=== PATIENT | female | born 1965 | race Caucasian/White ===

== ENCOUNTER 2016-05-10 09:50 | Outpatient (CLI) | payer OTHER | END 2016-05-10 09:51 | disposition home or self-care (01) | DX: E66.9 Obesity, unspecified (principal); E11.65 Type 2 diabetes mellitus with hyperglycemia; I10 Essential (primary) hypertension ==

== ENCOUNTER 2016-07-21 07:25 | Outpatient (CLI) | payer OTHER ==
[2016-07-21 12:00] LABS: CALCIUM 9.7 mg/dL (8.5-10.3); CREATININE 0.6 mg/dL (0.4-1.0); POTASSIUM 3.6 mmol/L (3.5-5.0)
== END 2016-07-21 07:26 | disposition home or self-care (01) ==
LOC: LAB.F 07:25
PROVIDERS: ATTEND Internal Medicine
DX: I10 Essential (primary) hypertension (principal)
CPT/HCPCS: 36415; 80048

== ENCOUNTER 2016-11-29 08:36 | Outpatient (CLI) | payer OTHER ==
[2016-11-29 12:27] LABS: BUN - BLOOD UREA NITROGEN 22 mg/dL (6-20); CALCIUM 9.3 mg/dL (8.5-10.3); CARBON DIOXIDE - CO2 25 mmol/L (21-32); CHLORIDE 101 mmol/L (101-111); CHOL/HDL RATIO 7.6 (<4.4); CHOLESTEROL 280 mg/dL; CREATININE 0.6 mg/dL (0.4-1.0); GFR - MDRD 105 (>89); GLUCOSE 233 mg/dL (70-100); HDL CHOLESTEROL 37 mg/dL; LDL/HDL RATIO 4.6 (<4.4); POTASSIUM 3.7 mmol/L (3.5-5.0); SODIUM 136 mmol/L (135-145); TRIGLYCERIDES 360 mg/dL; VLDL CHOLESTEROL 72 mg/dL
[2016-11-29 12:48] LABS: HEMOGLOBIN A1C 1.44 g/dL
== END 2016-11-29 08:37 | disposition home or self-care (01) ==
LOC: LAB.F 08:36
PROVIDERS: ATTEND Internal Medicine
DX: I10 Essential (primary) hypertension (principal); E11.65 Type 2 diabetes mellitus with hyperglycemia; E78.2 Mixed hyperlipidemia
CPT/HCPCS: 36415; 80048; 80061; 83036

== ENCOUNTER 2017-02-28 13:10 | Outpatient (CLI) | payer OTHER ==
[2017-02-28 18:35] LABS: ALBUMIN 4.2 g/dL (3.2-5.5); ALBUMIN/GLOBULIN RATIO 1.4 (1.0-2.2); BILIRUBIN,TOTAL 0.4 mg/dL (0.2-1.0); CALCIUM 9.8 mg/dL (8.5-10.3); CREATININE 0.7 mg/dL (0.4-1.0); TOTAL PROTEIN 7.2 g/dL (6.7-8.2)
[2017-02-28 18:54] LABS: HB2 TOTAL 14.3 g/dL; HEMOGLOBIN A1C 1.03 g/dL; HEMOGLOBIN A1C % 8.7 % (4.6-6.2)
== END 2017-02-28 13:11 | disposition home or self-care (01) ==
LOC: LAB.F 13:10
PROVIDERS: ATTEND Physician Assistant Medical
DX: E11.65 Type 2 diabetes mellitus with hyperglycemia (principal)
CPT/HCPCS: 36415; 80053; 83036

== ENCOUNTER 2017-04-04 08:00 | Outpatient (CLI) | payer OTHER ==
[2017-04-08 11:16] LABS: CREATININE, URINE 1.72 g/24 h (0.63-2.50)
== END 2017-04-04 23:59 | disposition home or self-care (01) ==
LOC: LAB.R 08:00
PROVIDERS: ATTEND Physician Assistant Medical
DX: I10 Essential (primary) hypertension (principal); R00.0 Tachycardia, unspecified
CPT/HCPCS: 82530; 82570

== ENCOUNTER 2017-04-04 12:52 | Outpatient (CLI) | payer OTHER ==
[2017-04-04 18:53] LABS: ALBUMIN 3.5 g/dL (3.2-5.5); ALBUMIN/GLOBULIN RATIO 1.2 (1.0-2.2); BILIRUBIN,TOTAL 0.5 mg/dL (0.2-1.0); CALCIUM 9.1 mg/dL (8.5-10.3); CREATININE 0.7 mg/dL (0.4-1.0); TOTAL PROTEIN 6.5 g/dL (6.7-8.2)
== END 2017-04-04 12:53 | disposition home or self-care (01) ==
LOC: LAB.F 12:52
PROVIDERS: ATTEND Physician Assistant Medical
DX: I10 Essential (primary) hypertension (principal)
CPT/HCPCS: 36415; 80053

== ENCOUNTER 2019-04-09 16:36 | Outpatient (CLI) | payer BC ==
[2019-04-09 17:13] LABS: HB2 TOTAL 12.1 g/dL; HEMOGLOBIN A1C 1.07 g/dL; HEMOGLOBIN A1C % 10.2 % (4.6-6.2)
[2019-04-09 17:23] LABS: BUN - BLOOD UREA NITROGEN 37 mg/dL (6-20); CALCIUM 9.3 mg/dL (8.5-10.3); CARBON DIOXIDE - CO2 26 mmol/L (21-32); CHLORIDE 99 mmol/L (101-111); CHOL/HDL RATIO 4.1 (<4.4); CHOLESTEROL 189 mg/dL; CREATININE 1.9 mg/dL (0.4-1.0); GFR - MDRD 27 (>89); GLUCOSE 465 mg/dL (70-100); HDL CHOLESTEROL 46 mg/dL; SODIUM 135 mmol/L (135-145)
[2019-04-09 17:36] LABS: CREATININE,URINE 49.7 mg/dL; MICROALBUM/CREATININE RATIO,UR 12732.4 ug/mg (<30.0); MICROALBUMIN,URINE 632.8 mg/dL (0-300.0)
[2019-04-09 17:43] LABS: LDL CHOLESTEROL,DIRECT 84 mg/dL; LDLD/HDL RATIO 1.8 (<4.4)
== END 2019-04-09 16:37 | disposition home or self-care (01) ==
LOC: LAB 16:36
PROVIDERS: ATTEND Internal Medicine
DX: F41.8 Other specified anxiety disorders (principal); M19.029 Primary osteoarthritis, unspecified elbow; F32.9 Major depressive disorder, single episode, unspecified; E11.9 Type 2 diabetes mellitus without complications; E78.5 Hyperlipidemia, unspecified; I10 Essential (primary) hypertension; R60.0 Localized edema; R06.02 Shortness of breath; R53.83 Other fatigue
CPT/HCPCS: 36415; 80048; 80061; 82043; 82570; 83036; 83721

== ENCOUNTER 2019-04-24 11:11 | Outpatient (CLI) | payer BC ==
[2019-04-24 11:29] LABS: CALCIUM 9.4 mg/dL (8.5-10.3); CREATININE 1.8 mg/dL (0.4-1.0)
== END 2019-04-24 11:12 | disposition home or self-care (01) ==
LOC: LAB 11:11
PROVIDERS: ATTEND Internal Medicine
DX: I10 Essential (primary) hypertension (principal); F41.8 Other specified anxiety disorders; E11.9 Type 2 diabetes mellitus without complications; E78.5 Hyperlipidemia, unspecified; R06.02 Shortness of breath
CPT/HCPCS: 36415; 80048

== ENCOUNTER 2019-05-07 07:26 | Outpatient (CLI) | payer BC ==
[2019-05-07 08:00] LABS: CALCIUM 9.3 mg/dL (8.5-10.3); CREATININE 1.9 mg/dL (0.4-1.0)
== END 2019-05-07 07:27 | disposition home or self-care (01) ==
LOC: LAB 07:26
PROVIDERS: ATTEND Internal Medicine
DX: F41.8 Other specified anxiety disorders (principal); E11.9 Type 2 diabetes mellitus without complications; E78.5 Hyperlipidemia, unspecified; I10 Essential (primary) hypertension; R06.02 Shortness of breath
CPT/HCPCS: 36415; 80048

== ENCOUNTER 2019-05-25 09:16 | Outpatient (CLI) | payer BC ==
[2019-05-25 09:35] LABS: BASOPHILS # (AUTO) 0.1 10^3/uL (0.0-0.1); BASOPHILS % (AUTO) 0.9 %; EOSINOPHILS # (AUTO) 0.2 10^3/uL (0.0-0.7); EOSINOPHILS % (AUTO) 4.3 %; HGB - HEMOGLOBIN 11.4 g/dL (12.0-16.0); LYMPHOCYTES # (AUTO) 2.2 10^3/uL (1.5-3.5); LYMPHOCYTES % (AUTO) 40.7 %; MEAN CORPUSCULAR HEMOGLOBIN 29.1 pg (27.0-31.0); MEAN CORPUSCULAR VOLUME 85.5 fL (81.0-99.0); MEAN PLATELET VOLUME 9.8 fL (7.9-10.8); MONOCYTES # (AUTO) 0.5 10^3/uL (0.0-1.0); MONOCYTES % (AUTO) 8.8 %; NEUTROPHILS # (AUTO) 2.4 10^3/uL (1.5-6.6); NEUTROPHILS % (AUTO) 44.5 %; PLT - PLATELET COUNT 204 10^3/uL (130-450); RED BLOOD COUNT 3.92 10^6/uL (4.20-5.40); RED CELL DISTRIBUTION WIDTH 12.2 % (12.0-15.0); WHITE BLOOD COUNT 5.3 x10^3/uL (4.8-10.8)
[2019-05-25 09:49] LABS: ALBUMIN 3.6 g/dL (3.2-5.5); CALCIUM 9.3 mg/dL (8.5-10.3); CREATININE 2.1 mg/dL (0.4-1.0)
[2019-05-25 10:05] LABS: HB2 TOTAL 12.2 g/dL; HEMOGLOBIN A1C 1.11 g/dL; HEMOGLOBIN A1C % 10.5 % (4.6-6.2)
[2019-05-25 10:18] LABS: CREATININE,URINE 78.4 mg/dL; MICROALBUM/CREATININE RATIO,UR 4358.4 ug/mg (<30.0); MICROALBUMIN,URINE 341.7 mg/dL (0-300.0)
== END 2019-05-25 09:17 | disposition home or self-care (01) ==
LOC: LAB 09:16
PROVIDERS: ATTEND Internal Medicine
DX: F41.8 Other specified anxiety disorders (principal); E11.22 Type 2 diabetes mellitus with diabetic chronic kidney disease; N18.9 Chronic kidney disease, unspecified; E78.5 Hyperlipidemia, unspecified; I12.9 Hypertensive chronic kidney disease with stage 1 through stage 4 chronic kidney disease, or unspecified chronic kidney disease; R06.02 Shortness of breath
CPT/HCPCS: 36415; 80069; 82043; 82570; 83036; 84443; 85025

== ENCOUNTER 2019-05-29 19:35 | Emergency (ER) | payer BC ==
[2019-05-29 19:47] VITALS: BP 150/100
--- NOTE | 2019-05-29 19:58 | ED Physician Documentation ---
PD HPI UPPER EXT INJURY - Stated complaint Stated Complaint: FALL - RT ARM INJ - Chief complaint Chief Complaint: Trauma Ext - History obtained from History obtained from: Patient - History of Present Illness Location: Left, Wrist Type of injury: Fall Where injury occurred: Home Timing - onset: How many hours ago (1) Timing - details: Abrupt onset Pain level now: 6 Improved by: Rest, Ice, Immobilization Worsened by: Moving, Palpating Associated symptoms: Swelling. No: Weakness, Numbness, Tingling, Discolored Contributing factors: No: Anticoagulated, Prior ortho surgery, Prosthetic joint, Work related Similar symptoms before: Has not had sx before Recently seen: Not recently seen - Additonal information Additional information: was walking along the top of a brick wall in her yard this evening when a brick gave way, causing her to fall to the ground (approximately 2-3 feet). landed on outstretched left upper extremity, sudden onset left wrist pain with deformity. 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 HEENT: Tonsil/Adenoidectomy - Present Medications Home Medications: Ambulatory Orders Medication Instructions Recorded Confirmed Aspirin [Aspirin EC] 81 mg PO DAILY 04/20/19 04/20/19 Cetirizine [ZyrTEC] 10 mg PO DAILY 04/20/19 04/20/19 Escitalopram [Lexapro] 20 mg PO DAILY 04/20/19 04/20/19 Famotidine 20 mg PO DAILY 04/20/19 04/20/19 Furosemide 40 mg PO BID 04/20/19 04/20/19 Glucosamine HCl 3,000 mg PO DAILY 04/20/19 04/20/19 Insulin Lispro [Humalog Kwikpen 0 - 20 unit SUBQ TIDWM 04/20/19 04/20/19 U-100] Insulin NPH Human Isophane 35 units SUBQ QPM 04/20/19 04/20/19 [Humulin N Kwikpen] Insulin NPH Human Isophane 50 unit SUBQ QDBREAKFAST 04/20/19 04/20/19 [Humulin N Kwikpen] Losartan Potassium 100 mg PO DAILY 04/20/19 04/20/19 Metformin HCl 1,000 mg PO BID 04/20/19 04/20/19 Metoprolol Succinate 100 mg PO QPM 04/20/19 04/20/19 Potassium Chloride [K-Dur] 40 meq PO ONCE 04/20/19 04/20/19 Rosuvastatin Calcium 40 mg PO DAILY 04/20/19 04/20/19 Spironolactone 25 mg PO DAILY 04/20/19 04/20/19 cloNIDine HCL [Clonidine HCl] 0.1 mg PO QPM 04/20/19 04/20/19 HYDROcod/ACETAM 5/325 [[place] 5/325] 1 - 2 ea PO Q6H PRN #20 tablet 05/29/19 - Allergies Allergies/Adverse Reactions: Allergies Allergy/AdvReac Type Severity Reaction Status Date / Time amlodipine Allergy Itching Verified 05/29/19 19:43 hydralazine Allergy Rash Verified 05/29/19 19:43 morphine Allergy Rash Verified 05/29/19 19:43 prochlorperazine Allergy Unknown Verified 05/29/19 19:43 [From Compazine] liraglutide [From Victoza] AdvReac Emesis Verified 05/29/19 19:43 - Social History Smoking Status: Former smoker PD ED PE NORMAL - Vitals Vital signs reviewed: Yes - General General: Alert and oriented X 3, Well developed/nourished, Other (appears uncomfortable at times due to left wrist pain) - Neuro Neuro: No sensory deficit PD ED PE EXPANDED - Extremities Extremities: Deformity, Tenderness, Limited ROM, Swelling, Left wrist Results - Vitals Vitals: Oxygen O2 Source Room air - Rads (name of study) left wrist xrays Radiology: Prelim report reviewed, See rad report Procedures - Splint (location) Upper extremity left Splint applied by: Tech Type of splint: Sugar tong Other: Patient tolerated well, No complications, Neurovascular intact, Good alignment, Sling provided PD MEDICAL DECISION MAKING - ED course Complexity details: reviewed results, re-evaluated patient, considered differential, d/w patient Departure - Departure Disposition: 01 Home, Self Care Clinical Impression: Wrist fracture, left Qualifiers: Encounter type: initial encounter Fracture type: closed Qualified Code(s): S62.102A - Fracture of unspecified carpal bone, left wrist, initial encounter for closed fracture Condition: Good Instructions: ED Sling, ED Splint Care Fiberglass, ED Fx Wrist General Follow-Up: Golden Cantrell MD [Provider Admit Priv/Credential] - (Call in the morning to arrange for next available appointment) Prescriptions: HYDROcod/ACETAM 5/325 [[place] 5/325] 1 - 2 ea PO Q6H PRN #20 tablet PRN Reason: Pain Discharge Date/Time: 05/29/19 21:59
[2019-05-29] MEDS ORDERED: HYDROmorphone 1 MG/ML CARPUJECT IM STA (20:15)
--- NOTE | 2019-05-29 20:38 | XRAY Report ---
Reason: fall, injury, deformity Procedure Date: 05/29/2019 Accession Number: [id number] / [id number] Procedure: XR - Wrist 4 View RT CPT Code: Final Report FULL RESULT: EXAM: RIGHT WRIST RADIOGRAPHY EXAM DATE: 05/29/2019 08:33 PM. CLINICAL HISTORY: Fall, injury, deformity. Right wrist pain. COMPARISON: None. TECHNIQUE: 4 views. FINDINGS: Bones: Acute transverse fracture at the distal right radial metaphysis with mild 4 mm dorsal displacement and mild 20 degrees dorsal angulation. No acute fracture of the distal ulna is identified, although there is an old ulnar styloid fracture or unfused apophysis. Carpal bones and metacarpals appear intact. Joints: Normal. No subluxations. Soft Tissues: Mild soft tissue swelling diffusely about the wrist. IMPRESSION: Acute transverse fracture of the right distal radial metaphysis with mild dorsal displacement and angulation. RADIA
[2019-05-29] MEDS ORDERED: ONDANSETRON ODT 4 MG TABLET TL STA (21:10)
[2019-05-29] MEDS ORDERED: HYDROcod/ACETAM 5/325 MG TABLET PO STA (21:10)
[2019-05-29] MEDS ORDERED: HYDROcod/ACET 5/325 Prepack 4 PO STA (21:11)
== END 2019-05-29 21:59 | disposition home or self-care (01) ==
LOC: ED 19:35
DX: S52.591A Other fractures of lower end of right radius, initial encounter for closed fracture (principal); W17.89XA Other fall from one level to another, initial encounter; Y93.01 Activity, walking, marching and hiking; Y92.007 Garden or yard of unspecified non-institutional (private) residence as the place of occurrence of the external cause; I10 Essential (primary) hypertension; E11.9 Type 2 diabetes mellitus without complications; Z79.4 Long term (current) use of insulin; Z87.891 Personal history of nicotine dependence
CPT/HCPCS: 29105; 73110; 96372; 99283; A9270; J1170; Q0162

== ENCOUNTER 2019-05-31 11:47 | Outpatient (CLI) | payer BC ==
--- NOTE | 2019-06-01 09:23 | Ultrasound Report ---
Reason: RENOVASCULAR HYPERTENSION Procedure Date: 05/31/2019 Accession Number: [id number] / [id number] Procedure: US - Arterial Visceral Complete CPT Code: Final Report FULL RESULT: EXAM: RENAL ARTERY DOPPLER ULTRASOUND EXAM DATE: 05/31/2019 01:08 PM. CLINICAL HISTORY: Renovascular hypertension. COMPARISON: None. TECHNIQUE: Real-time sonographic vascular imaging was performed by the boat worker through the renal arterial system with a linear transducer utilizing color-flow, Doppler flow, and spectral analysis. Multiple human resources representative static images were saved for review. FINDINGS: Right Kidney: 11.9 x 6.8 x 6.4 cm. Echotexture: Not described. Right Segmental Artery: Upper pole: PSV 30.3 cm/sec, RI 0.79. Mid pole: PSV 40.6 cm/sec, RI 0.71. Lower pole: PSV 36.4 cm/sec, RI 0.71. Right Renal Artery: Origin: Not seen. Proximal: Not seen. Mid: Not seen. Distal: PSV 136 cm/sec, RA/AO 1.50. Proximal Aorta PSV: 90.5 cm/sec. RRV Patent: Yes. Left Kidney: 9.7 x 5.1 x 4.7 cm. Echotexture: Irregular contour. Left Segmental Artery: Upper pole: PSV 40 cm/sec, RI 0.69. Mid pole: PSV 31.5 cm/sec, RI 0.66. Lower pole: PSV 41.5 cm/sec, RI 0.76. Left Renal Artery: Origin: Not seen. Proximal: Not seen. Mid: Not seen. Distal: PSV 134 cm/sec, RA/AO 1.48. LRV Patent: Yes. Origin through mid renal arteries are obscured bilaterally due to patient body habitus. Kidneys appear mildly echogenic bilaterally. There is a simple-appearing 18 mm left midpole cyst. No imaging follow-up is recommended per consensus recommendations based on imaging criteria. IMPRESSION: 1. Renal arteries are largely obscured bilaterally due to patient body habitus, nondiagnostic for renal artery stenosis. Consider CTA/MRA for further evaluation. 2. Mildly echogenic kidneys with elevated renal resistive indices suggest medical renal disease. CRITERIA FOR CLASSIFICATION OF RENAL ARTERY (RA) DISEASE BY DUPLEX SCANNING: RA Diameter Reduction/ RA PSV/ RAR: Normal, < 180 cm/sec, < 3.5 < 60%, >= 180 cm/sec, < 3.5 >= 60%, >= 180 cm/sec, >= 3.5 Total Occlusion: Undetectable; Not applicable RADIA
== END 2019-05-31 11:48 | disposition home or self-care (01) ==
LOC: DI 11:47
PROVIDERS: ATTEND Internal Medicine
DX: I15.0 Renovascular hypertension (principal)
CPT/HCPCS: 93975

== ENCOUNTER 2019-06-05 08:43 | Outpatient (CLI) | payer BC ==
--- NOTE | 2019-06-06 02:43 | XRAY Report ---
Reason: OTHER EXTRAARTICULAR FRACTURE OF LOWER END OF RIGH Procedure Date: 06/05/2019 Accession Number: [id number] / [id number] Procedure: XR - Wrist 2 View RT CPT Code: Final Report FULL RESULT: EXAM: RIGHT WRIST RADIOGRAPHY EXAM DATE: 06/05/2019 08:46 AM CLINICAL HISTORY: Previous fracture, follow-up. Other extraarticular fracture of lower end of right . Fall. COMPARISON: WRIST 4 VIEW RT 05/29/2019 8:10 PM. TECHNIQUE: 2 views. FINDINGS IMPRESSION: 1. Presence of cast obscures bony detail. 2. Slight dorsal angulated mildly displaced distal radial fracture is again seen without significant change in alignment compared to the prior study. There is no significant bony callus formation or bridging periosteal reaction demonstrated at this time. 3. Remote ulnar styloid fracture is again noted. 4. Soft tissue swelling persists. RADIA
== END 2019-06-05 08:44 | disposition home or self-care (01) ==
LOC: DI 08:43
PROVIDERS: ATTEND Orthopaedic Surgery Sports Medicine
DX: S52.501D Unspecified fracture of the lower end of right radius, subsequent encounter for closed fracture with routine healing (principal); S52.611D Displaced fracture of right ulna styloid process, subsequent encounter for closed fracture with routine healing

== ENCOUNTER 2019-06-07 19:55 | Outpatient (CLI) | payer BC | END 2019-06-07 19:56 | disposition critical access hospital (66) | LOC: EMS 19:55 | PROVIDERS: ATTEND Surgery | DX: R53.1 Weakness (principal); R55 Syncope and collapse; R11.0 Nausea; R73.09 Other abnormal glucose | CPT/HCPCS: A0425; A0427 ==

== ENCOUNTER 2019-06-07 20:21 | Inpatient (IN) | payer BC ==
[2019-06-07] MEDS ORDERED: cloNIDine 0.1 MG TABLET PO SCH (21:00)
[2019-06-07 21:13] LABS: BASOPHILS # (AUTO) 0.1 10^3/uL (0.0-0.1); BASOPHILS % (AUTO) 0.6 %; EOSINOPHILS # (AUTO) 0.2 10^3/uL (0.0-0.7); EOSINOPHILS % (AUTO) 3.1 %; HGB - HEMOGLOBIN 12.2 g/dL (12.0-16.0); LYMPHOCYTES # (AUTO) 2.2 10^3/uL (1.5-3.5); LYMPHOCYTES % (AUTO) 27.9 %; MEAN CORPUSCULAR HEMOGLOBIN 29.8 pg (27.0-31.0); MEAN CORPUSCULAR VOLUME 85.3 fL (81.0-99.0); MEAN PLATELET VOLUME 9.5 fL (7.9-10.8); MONOCYTES # (AUTO) 0.7 10^3/uL (0.0-1.0); MONOCYTES % (AUTO) 8.8 %; NEUTROPHILS # (AUTO) 4.6 10^3/uL (1.5-6.6); NEUTROPHILS % (AUTO) 59.2 %; PLT - PLATELET COUNT 301 10^3/uL (130-450); RED BLOOD COUNT 4.09 10^6/uL (4.20-5.40); RED CELL DISTRIBUTION WIDTH 12.2 % (12.0-15.0); WHITE BLOOD COUNT 7.8 x10^3/uL (4.8-10.8)
[2019-06-07 21:17] LABS: VBG BASE EXCESS -7.5 mmol/L (-2 - +2); VBG PCO2 43.1 mmHg (41-51); VBG PH 7.267 (7.31-7.41); VBG PO2 41.3 mmHg (25-47); VBG TOTAL CO2 20.5 mmol/L (24-29)
[2019-06-07 21:30] LABS: ALBUMIN 3.7 g/dL (3.2-5.5); ALBUMIN/GLOBULIN RATIO 1.1 (1.0-2.2); BILIRUBIN,TOTAL 0.5 mg/dL (0.2-1.0); CALCIUM 9.3 mg/dL (8.5-10.3); CREATININE 3.2 mg/dL (0.4-1.0); TOTAL PROTEIN 7.2 g/dL (6.7-8.2)
--- NOTE | 2019-06-07 21:33 | ED Physician Documentation ---
History of Present Illness - Stated complaint Stated Complaint: SYNCOPE, WEAKNESS - Chief complaint Chief Complaint: Neuro - History obtained from History obtained from: Patient - History of Present Illness Timing: Today Pain level now: 4 (RUE) Improved by: rest Worsened by: standing, ambulating Associated symptoms: lightheadedness, generalized weakness - Additonal information Additional information: T+R from this ED 05/29/2019 for right wrist fracture. BIBA tonight for near-syncope. She went to stand from seated position tonight at home, approximately 30-40 minutes HEAD OF MUSIC, and had generalized weakness and felt that her legs were "going to give out" (per patient). She sat back down but had 2 more episodes upon trying to stand back up and thus called 911. c/o nausea, but this has been presents since she was here 10 days ago. Review of Systems Constitutional: reports: Fatigue. denies: Fever, Chills, Myalgias, Sweats Eyes: reports: Reviewed and negative Ears: reports: Reviewed and negative Nose: reports: Reviewed and negative Cardiac: reports: Reviewed and negative Respiratory: reports: Reviewed and negative GI: reports: Reviewed and negative : denies: Dysuria, Frequency Skin: reports: Reviewed and negative Musculoskeletal: reports: Extremity pain (RUE (recent wrist fracture)). denies: Neck pain, Back pain Neurologic: reports: Generalized weakness, Near syncope. 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 HEENT: Tonsil/Adenoidectomy - Present Medications Home Medications: Ambulatory Orders Medication Instructions Recorded Confirmed Aspirin [Aspirin EC] 81 mg PO DAILY 04/20/19 06/08/19 Cetirizine [ZyrTEC] 10 mg PO DAILY 04/20/19 06/08/19 Escitalopram [Lexapro] 20 mg PO DAILY 04/20/19 06/08/19 Famotidine 20 mg PO DAILY 04/20/19 06/08/19 Furosemide 40 mg PO BID 04/20/19 06/08/19 Glucosamine HCl 3,000 mg PO DAILY 04/20/19 06/08/19 Insulin Lispro [Humalog Kwikpen 0 - 20 unit SUBQ TIDWM 04/20/19 06/08/19 U-100] Insulin NPH Human Isophane 35 units SUBQ QPM 04/20/19 06/08/19 [Humulin N Kwikpen] Insulin NPH Human Isophane 50 unit SUBQ QDBREAKFAST 04/20/19 06/08/19 [Humulin N Kwikpen] Losartan Potassium 100 mg PO DAILY 04/20/19 06/08/19 Metformin HCl 1,000 mg PO BID 04/20/19 06/08/19 Metoprolol Succinate 100 mg PO QPM 04/20/19 06/08/19 Potassium Chloride [K-Dur] 40 meq PO ONCE 04/20/19 06/08/19 Rosuvastatin Calcium 40 mg PO DAILY 04/20/19 06/08/19 Spironolactone 25 mg PO DAILY 04/20/19 06/08/19 cloNIDine HCL [Clonidine HCl] 0.1 mg PO QPM 04/20/19 06/08/19 HYDROcod/ACETAM 5/325 [[place] 5/325] 1 - 2 ea PO Q6H PRN #20 tablet 05/29/19 06/08/19 - Allergies Allergies/Adverse Reactions: Allergies Allergy/AdvReac Type Severity Reaction Status Date / Time amlodipine Allergy Itching Verified 05/29/19 19:43 hydralazine Allergy Rash Verified 05/29/19 19:43 morphine Allergy Rash Verified 05/29/19 19:43 prochlorperazine Allergy Unknown Verified 05/29/19 19:43 [From Compazine] liraglutide [From Victoza] AdvReac Emesis Verified 05/29/19 19:43 - Social History Does the pt smoke?: No Smoking Status: Never smoker Does the pt drink ETOH?: No Does the pt have substance abuse?: No - Immunizations Immunizations are current?: Yes - POLST Patient has POLST: No PD ED PE NORMAL - Vitals Vital signs reviewed: Yes - General General: Alert and oriented X 3, No acute distress, Well developed/nourished - HEENT HEENT: Moist mucous membranes - Neck Neck: Supple, no meningeal sign - Cardiac Cardiac: RRR, No murmur - Respiratory Respiratory: No respiratory distress, Clear bilaterally - Abdomen Abdomen: Soft, Non tender - Derm Derm: Normal color, Warm and dry - Extremities Extremities: No edema, Other (RUE splint/JULIEN in place. fingertips of RUE are warm and normal color with brisk capillary refill and intact LTS) - Neuro Neuro: Alert and oriented X 3, marine architect 2-12 intact, No motor deficit, No sensory deficit, Normal speech Eye Opening: Spontaneous Motor: Obeys Commands Verbal: Oriented GCS Score: 15 Results - Vitals Vitals: Vital Signs - 24 hr 06/07/19 06/07/19 20:28 21:53 Temperature 36.9 C Heart Rate 79 79 Respiratory 18 14 Rate Blood Pressure 180/85 H 151/78 H O2 Saturation 94 96 Oxygen O2 Source Room air - EKG (time done) No standard instances Rate: Rate (enter#) (76) Rhythm: NSR [place]: Normal Intervals: Other (NSIVCD) QRS: Normal Ischemia: Other (isolated QIII, inverted p III) - Labs Labs: Laboratory Tests 06/07/19 06/07/19 06/07/19 21:06 21:06 21:06 WBC 7.8 RBC 4.09 L Hgb 12.2 Hct 34.9 L MCV 85.3 MCH 29.8 MCHC 35.0 RDW 12.2 Plt Count 301 MPV 9.5 Neut # (Auto) 4.6 Lymph # (Auto) 2.2 [place] # (Auto) 0.7 Eos # (Auto) 0.2 Baso # (Auto) 0.1 Absolute Nucleated RBC 0.00 Nucleated RBC % 0.0 VBG pH VBG pCO2 VBG pO2 VBG HCO3 VBG Total CO2 VBG O2 Saturation VBG Base Excess Sodium 125 L Potassium 7.7 H* Chloride 98 L Carbon Dioxide 20 L Anion Gap 7.0 BUN 77 H Creatinine 3.2 H Estimated GFR (MDRD) 15 L Glucose 428 H Lactic Acid 1.4 Calcium 9.3 Total Bilirubin 0.5 AST 21 ALT 22 Alkaline Phosphatase 85 Total Protein 7.2 Albumin 3.7 Globulin 3.5 Albumin/Globulin Ratio 1.1 Lipase 139 H 06/07/19 06/07/19 21:06 21:53 WBC RBC Hgb Hct MCV MCH MCHC RDW Plt Count MPV Neut # (Auto) Lymph # (Auto) [place] # (Auto) Eos # (Auto) Baso # (Auto) Absolute Nucleated RBC Nucleated RBC % VBG pH 7.267 L VBG pCO2 43.1 VBG pO2 41.3 VBG HCO3 19.2 L VBG Total CO2 20.5 L VBG O2 Saturation 76.2 VBG Base Excess -7.5 L Sodium Potassium 6.9 H* Chloride Carbon Dioxide Anion Gap BUN Creatinine Estimated GFR (MDRD) Glucose Lactic Acid Calcium Total Bilirubin AST ALT Alkaline Phosphatase Total Protein Albumin Globulin Albumin/Globulin Ratio Lipase PD MEDICAL DECISION MAKING - ED course ED course: patient found to have hyperkalemia with bun/creatinine abnormalities that are significantly higher than her baseline. Of note, she says she recently stopped her lasix (1-2 weeks ago) because she takes it for leg swelling and noted this had improved. However, she still take spirinolactone and potassium. I discussed the case with Dr. rL ([facility] hospitalist); he requests that I discuss the case with nephrology before considering admit to [facility]. I discussed the case with Dr. Zayas (on-call nephrology at [facility] (patient does not have a gravity prospecting operator)). She recommends admission and says patient can be admitted at this time to [facility] and can consider transfer if patient does not improve with the following measures: IV fluids, discontinue diuretics and discontinue statin, and administer insulin with D50 (I did not order the D50 due to her hyperglycemia), kayexelate, and albuterol nebs (she recommends up to 10mg on initial dose). She also recommends kidney ultrasound in AM. D/W Dr. Lr, accepts admit to [facility] Departure - Departure Disposition: ED Place in Observation Clinical Impression: Hyperkalemia, Renal insufficiency Condition: Stable Discharge Date/Time: 06/07/19 23:48
[2019-06-07] MEDS ORDERED: SODIUM CHLORIDE 0.9% 500 ML IV STA (21:53)
[2019-06-07] MEDS ORDERED: ONDANSETRON 4 MG/2 ML VIAL IVP STA (22:18)
[2019-06-07] MEDS ORDERED: ONDANSETRON 4 MG/2 ML VIAL ONE (22:19)
[2019-06-07] MEDS ORDERED: SODIUM POLYSTYRENE SULFONATE 15 GM/60 ML BOTTLE PO STA (22:49)
[2019-06-07] MEDS ORDERED: INSULIN REGULAR HUMAN 100 UNIT/1 ML 10 ML MDV SUBQ STA (22:49)
[2019-06-07] MEDS ORDERED: DEXTROSE 50% ABBOJECT 25 GM/50 ML SYRINGE IVP STA (22:49)
[2019-06-07] MEDS ORDERED: ALBUTEROL NEB 2.5 MG/3 ML INH STA ×3 (22:49→22:55)
[2019-06-07] MEDS ORDERED: ACETAMINOPHEN 325 MG TABLET PO PRN (23:01)
[2019-06-07] MEDS ORDERED: SODIUM CHLORIDE FLUSH 0.9% 10 ML SYRINGE IVP PRN (23:01)
--- NOTE | 2019-06-07 23:15 | HISTORY & PHYSICAL EXAMINATION ---
Chief Complaint - Chief Complaint Chief Complaint: hyperkalmemia History of Present Illness - Admitted From Admitted From:: [facility] - History Obtained From Records Reviewed: yes History obtained from: patient - History of Present Illness HPI Comment/Other: Patient is a 53-year-old female who presented to the ED today via EMS. She was at the dinner table with her family and suddenly felt like she had to stand. She attempted to stand but her legs would not support her. She was helped into a chair by her and a friend. Later she attempted to stand again and was unable to so her called EMS after they were advised to do so by the nurse line. In the ED work-up included BMP which showed a potassium level of 7.7 and a creatinine of 3.2. Nephrology at [facility] was consulted by the ED physician. It was advised to continue managing with IV hydration, albuterol, Kayexalate and insulin. As a result she was presented for admission. At bedside she denies chest pain, dyspnea, abdominal pain, fever or chills. She has been nauseous but no vomiting. She denied lightheadedness. She was seen in the emergency department on 29 May 2019 after sustaining a mechanical fall. She has a right wrist fracture as a result. However right arm is currently in a brace. She stopped taking Lasix 1 to 2 weeks ago. However she has continued to take spironolactone and supplemental potassium chloride tablets daily during this time. She is also on losartan, metformin, rosuvastatin. 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 She also had hypertension. Father at 72 from complications of diabetes mellitus. Brother has hyperlipidemia and some unspecified cardiac problems. She has 2 other siblings who are healthy. She has a child with Asperger's. Social History Notes: She lives at home with her family. She does not smoke or use illicit substances. She rarely drinks alcohol. - POLST Patient has POLST: No POLST Status: Full Code Meds/Allgy - Home Medications Home Medications: Ambulatory Orders Medication Instructions Recorded Confirmed Aspirin [Aspirin EC] 81 mg PO DAILY 04/20/19 04/20/19 Cetirizine [ZyrTEC] 10 mg PO DAILY 04/20/19 04/20/19 Escitalopram [Lexapro] 20 mg PO DAILY 04/20/19 04/20/19 Famotidine 20 mg PO DAILY 04/20/19 04/20/19 Furosemide 40 mg PO BID 04/20/19 04/20/19 Glucosamine HCl 3,000 mg PO DAILY 04/20/19 04/20/19 Insulin Lispro [Humalog Kwikpen 0 - 20 unit SUBQ TIDWM 04/20/19 04/20/19 U-100] Insulin NPH Human Isophane 35 units SUBQ QPM 04/20/19 04/20/19 [Humulin N Kwikpen] Insulin NPH Human Isophane 50 unit SUBQ QDBREAKFAST 04/20/19 04/20/19 [Humulin N Kwikpen] Losartan Potassium 100 mg PO DAILY 04/20/19 04/20/19 Metformin HCl 1,000 mg PO BID 04/20/19 04/20/19 Metoprolol Succinate 100 mg PO QPM 04/20/19 04/20/19 Potassium Chloride [K-Dur] 40 meq PO ONCE 04/20/19 04/20/19 Rosuvastatin Calcium 40 mg PO DAILY 04/20/19 04/20/19 Spironolactone 25 mg PO DAILY 04/20/19 04/20/19 cloNIDine HCL [Clonidine HCl] 0.1 mg PO QPM 04/20/19 04/20/19 HYDROcod/ACETAM 5/325 [[place] 5/325] 1 - 2 ea PO Q6H PRN #20 tablet 05/29/19 - Allergies Allergies/Adverse Reactions: Allergies Allergy/AdvReac Type Severity Reaction Status Date / Time amlodipine Allergy Itching Verified 05/29/19 19:43 hydralazine Allergy Rash Verified 05/29/19 19:43 morphine Allergy Rash Verified 05/29/19 19:43 prochlorperazine Allergy Unknown Verified 05/29/19 19:43 [From Compazine] liraglutide [From Victoza] AdvReac Emesis Verified 05/29/19 19:43 Review of Systems - Constitutional Constitutional: denies: Fatigue, Fever, Chills - Eyes Eyes: denies: Pain, Blurred vision, Vision loss - Ears, Nose & Throat Ears, Nose & Throat: denies: Ear pain, Hearing loss, Hearing aids, Vertigo - Cardiovascular Cariovascular: denies: Irregular heart rate, Palpitations, Chest pain, Edema, Lightheadedness - Respiratory Respiratory: denies: Cough, Sputum production, Wheezing, SOB at rest, SOB with exertion - Gastrointestinal Gastrointestinal: reports: Nausea. denies: Abdominal pain, Abdominal distention, Constipation, Diarrhea, Change in bowel habits, Vomiting - Genitourinary Genitourinary: denies: Dysuria, Frequency, Urgency, Hematuria - Musculoskeletal Musculoskeletal: denies: Back pain, Muscle aches, Stiffness - Integumentary Integumentary: denies: Rash, Pruritis, Lesions - Neurological Neurological: denies: General weakness, Focal weakness, Headache, Dizziness - Psychiatric Psychiatric: denies: Depression, Anxiety Prior Level of Functionality: Patient is independent of activities of daily living Exam - Vital Signs Vital Signs: Vital Signs x48h Temp Pulse Resp BP Pulse Ox 06/07/19 21:53 79 14 151/78 H 96 06/07/19 20:28 36.9 C 79 18 180/85 H 94 - Physical Exam General Appearance: positive: No acute distress, Alert Eyes Bilateral: positive: Normal inspection, PERRL, EOMI ENT: positive: Pharynx nml Neck: positive: Nml inspection, No JVD, Trachea midline Respiratory: positive: Chest non-tender, No respiratory distress, Breath sounds nml. negative: Wheezes, Rales, Rhonchi Cardiovascular: positive: Regular rate & rhythm, No murmur Abdomen: positive: Non-tender, Nml bowel sounds, No distention. negative: Guarding, Rebound Back: positive: Nml inspection Skin: positive: Color nml, No rash, Warm, Dry Neurologic/Psychiatric: positive: Oriented x3, Mood/affect nml Conclusion/Plan - Problem List (1) Hyperkalemia Conclusion/Plan: Patient reports stopping Lasix 1 to 2 weeks ago. However it appears she has still been on supplemental potassium chloride daily and spironolactone. It is possible that this is a significant contributing factors to her hyperkalemia. Upon presentation potassium level was 7.7. Recheck was 6.9 priorto intervention. There are no associated EKG changes. Nephrology at [facility] was consulted. She advised initial management at [facility] with IV hydration, insulin and Kayexalate. The patient was given regular insulin 10 units IV. She received albuterol 7.5 mg. She was also given 15 mg of Kayexalate. She also received a liter of normal saline. We will recheck her blood glucose level and potassium level. If indicated we will administer more insulin IV. The janitorial services supervisor also recommended holding the patient's rosuvastatin. (2) Renal insufficiency Conclusion/Plan: We will hold patient's losartan, metformin and spironolactone. Patient receiving IV hydration with normal saline at 125 mils an hour. Prior to this she was given a liter bolus of normal saline in the ED. Anticipating improvement to resolution of her acute kidney injury. (3) Hypertension Conclusion/Plan: We will continue patient's metoprolol succinate 100 mg daily and clonidine 0.1mg qpm. We will add hydralazine 10 mg every 4 hours PRN IV for systolic blood pressure greater than 160 We will hold losartan, spironolactone and Lasix due to acute kidney injury. (4) Diabetes mellitus Conclusion/Plan: Appears to be poorly controlled. Accu-Cheks and sliding scale insulin ordered. Will resume patient's long-acting insulin once verified. We will hold metformin. Will check hemoglobin A1c (5) Depression Conclusion/Plan: Resume lexapro 20mg po daily (6) GERD (gastroesophageal reflux disease) Conclusion/Plan: Protonix 40mg po daily ordered (7) Right wrist fracture Conclusion/Plan: This happened on May 29, 2019. It was a mechanical fall. She tripped on a loose brick in the pavement. Patient has a splint in place. Pain management with [place] as needed. (8) Hyperlipemia Conclusion/Plan: Rosuvastatin held at the request of the janitorial services supervisor due to hyperkalemia. - Lab Results Fish Bones: 06/08/19 04:50 06/08/19 04:50 Core Measures - Anticipated LOS I expect patient to be DC'd or transferred within 96 hours.: Yes - DVT/VTE - Prophylaxis VTE/DVT Device ordered at admit?: Yes
[2019-06-07] MEDS ORDERED: SODIUM CHLORIDE 0.9% 1,000 ML IV SCH (23:45)
[2019-06-08 00:23] LABS: HB2 TOTAL 12.1 g/dL; HEMOGLOBIN A1C 1.15 g/dL; HEMOGLOBIN A1C % 10.8 % (4.6-6.2)
[2019-06-08] MEDS ORDERED: INSULIN REGULAR HUMAN 100 UNIT/1 ML 10 ML MDV IVP STA (00:29)
[2019-06-08] MEDS: SODIUM CHLORIDE FLUSH 0.9% 10 ML SYRINGE IVP SCH ×3 (00:55→16:55)
[2019-06-08] MEDS: METOPROLOL SUCCINATE 50 MG TABLET PO SCH ×2 (00:55→21:22)
[2019-06-08] MEDS: HYDROcod/ACETAM 5/325 MG TABLET PO PRN ×4 (00:55→16:56)
[2019-06-08 01:17] LABS: BILIRUBIN,URINE NEGATIVE (NEGATIVE); CLARITY,URINE CLEAR (CLEAR); GLUCOSE, URINE (UA) 500 mg/dL (NEGATIVE); KETONES,URINE (UA) NEGATIVE (NEGATIVE); LEUKOCYTE ESTERASE, URINE SMALL (NEGATIVE); NITRITE,URINE NEGATIVE (NEGATIVE); OCCULT BLOOD,URINE SMALL (NEGATIVE); PH,URINE 5.5 PH (5.0-7.5); PROTEIN,URINE >=300 mg/dL (NEGATIVE); UROBILINOGEN,URINE 0.2 (NORMAL) E.U./dL (NORMAL)
[2019-06-08 01:24] LABS: BACTERIA,URINE Rare /HPF (None Seen); CASTS, URINE 6-10 Hyaline Casts /LPF; SQUAMOUS EPITHELIAL CELL,UR RARE Squamous (<= Few)
[2019-06-08 05:35] LABS: BASOPHILS % (AUTO) 0.5 %; EOSINOPHILS # (AUTO) 0.2 10^3/uL (0.0-0.7); EOSINOPHILS % (AUTO) 2.2 %; HGB - HEMOGLOBIN 10.5 g/dL (12.0-16.0); LYMPHOCYTES # (AUTO) 2.3 10^3/uL (1.5-3.5); LYMPHOCYTES % (AUTO) 29.6 %; MEAN CORPUSCULAR HEMOGLOBIN 29.7 pg (27.0-31.0); MEAN CORPUSCULAR HGB CONC 34.1 g/dL (32.0-36.0); MEAN CORPUSCULAR VOLUME 87.3 fL (81.0-99.0); MONOCYTES # (AUTO) 0.9 10^3/uL (0.0-1.0); MONOCYTES % (AUTO) 11.3 %; NEUTROPHILS # (AUTO) 4.3 10^3/uL (1.5-6.6); NEUTROPHILS % (AUTO) 55.9 %; PLT - PLATELET COUNT 243 10^3/uL (130-450); RED BLOOD COUNT 3.53 10^6/uL (4.20-5.40); RED CELL DISTRIBUTION WIDTH 12.3 % (12.0-15.0); WHITE BLOOD COUNT 7.7 x10^3/uL (4.8-10.8)
[2019-06-08 05:49] LABS: CALCIUM 8.9 mg/dL (8.5-10.3); CREATININE 3.3 mg/dL (0.4-1.0)
[2019-06-08] MEDS ORDERED: INSULIN REGULAR HUMAN 100 UNIT/1 ML 10 ML MDV IVP SCH (07:22)
[2019-06-08] MEDS ORDERED: SODIUM POLYSTYRENE SULFONATE 15 GM/60 ML BOTTLE PO SCH (07:23)
[2019-06-08] MEDS ORDERED: INSULIN ASPART 300 UNIT/3 ML PEN SUBQ SCH (08:00)
[2019-06-08] MEDS ORDERED: INSULIN REGULAR HUMAN 300 UNIT/3 ML VIAL IVP SCH (08:30)
[2019-06-08] MEDS ORDERED: INSULIN NPH HUMAN 100 UNIT/1 ML 10 ML MDV SUBQ SCH (09:00)
--- NOTE | 2019-06-08 09:04 | PHARMACY PROGRESS NOTE ---
- Best Possible Medication History Admit Date and Time: 06/07/19 230 Processed by: Nursing Medication History completed: Yes As the person ultimately responsible for medication therapy, providers are able to order a medication from an existing home medication list in [facility] via the "Reconcile Routine" prior to Confirmation of that medication by client technical support associate. Such practice is discouraged except when the physician, in their clinical judgment, deems that a medical need exists for a medication without regard to previous use.
[2019-06-08] MEDS: HEPARIN 5,000 UNIT/ML VIAL SUBQ SCH ×2 (10:15→21:21)
[2019-06-08] MEDS: INSULIN ASPART 300 UNIT/3 ML PEN SUBQ SCH ×4 (10:15→21:22)
[2019-06-08] MEDS: SODIUM CHLORIDE 0.9% 1,000 ML IV SCH ×2 (10:17→18:35)
[2019-06-08] MEDS: PANTOPRAZOLE 40 MG TABLET PO SCH (10:18)
[2019-06-08] MEDS: ESCITALOPRAM 10 MG TABLET PO SCH (10:18)
[2019-06-08] MEDS: ASPIRIN CHEW 81 MG TABLET PO SCH (10:18)
[2019-06-08] MEDS: INSULIN NPH HUMAN 300 UNIT/3 ML VIAL SUBQ SCH ×2 (10:19→21:24)
[2019-06-08 11:45] LABS: CALCIUM 8.5 mg/dL (8.5-10.3); CREATININE 3.1 mg/dL (0.4-1.0)
--- NOTE | 2019-06-08 11:56 | PROVIDER PROGRESS NOTE ---
Assessment/Plan - Problem List (1) Hyperkalemia Assessment/Plan: improved, k is 6.0 now, add another 10 unit of regular insulin pt has 257 glucose level now, and 10 mg Albuterol INH, recheck BMP again. (2) HAFSA Conclusion/Plan: slightly improved. it is likely caused dehydration and uncontrolled DM2 continue Hydration, and control glucose level lab monitor and hold nephrological toxical agents (3) Hypertension Conclusion/Plan: stable. hold home meds Losartan and Spironolactine (4) Diabetes mellitus Conclusion/Plan: Appears to be poorly controlled. A1C is 10.8 resume pt's home insulin now add SSI, ACHS to check glucose, add hypoglycemia protocol (5) Depression Conclusion/Plan: Resume lexapro 20mg po daily (6) GERD (gastroesophageal reflux disease) Conclusion/Plan: Protonix 40mg po daily ordered (7) Right wrist fracture Conclusion/Plan: Patient has a splint in place. Pain management with [place] as needed. continue pain control (8) Hyperlipemia Conclusion/Plan: stable - Current Meds Current Meds: Current Medications Generic Name Dose Route Start Last Admin Trade Name Freq PRN Reason Stop Dose Admin Hydrocodone Bitart/Acetaminophen 1 tab 06/07/19 23:43 06/08/19 05:05 [place] 5/325 PO 1 tab Q4HR PRN Administration PAIN Aspirin 81 mg 06/08/19 09:00 06/08/19 10:18 [facility] Sudeep Aspirin PO 81 mg DAILY OSMANI Administration Escitalopram Oxalate 20 mg 06/08/19 09:00 06/08/19 10:18 Lexapro PO 20 mg DAILY OSMANI Administration Heparin Sodium (Porcine) 5,000 unit 06/08/19 09:00 06/08/19 10:15 SUBQ 5,000 unit BID OSMANI Administration Sodium Chloride 1,000 mls @ 125 mls/hr 06/08/19 08:25 06/08/19 10:17 Normal Saline 0.9% IV 125 mls/hr .Q8H OSMANI Administration Insulin Aspart 3 - 11 unit 06/08/19 08:00 06/08/19 11:52 Novolog SUBQ 7 unit 0800,1200,1700,2100 OSMANI Administration Protocol Insulin Human NPH 50 unit 06/08/19 10:00 06/08/19 10:19 Humulin N SUBQ 50 unit DAILY OSMANI Administration Metoprolol Succinate 100 mg 06/07/19 21:00 06/08/19 00:55 Toprol Xl PO 100 mg QPM OSMANI Administration Pantoprazole Sodium 40 mg 06/08/19 09:00 06/08/19 10:18 Protonix PO 40 mg DAILY OSMANI Administration Sodium Chloride 10 ml 06/08/19 01:00 06/08/19 10:18 Normal Saline Flush 0.9% IVP 10 ml 0100,0900,1700 OSMANI Administration - Lab Result Fish Bone Diagrams: 06/08/19 04:50 06/08/19 11:12 - Additional Planning My Orders: My Active Orders 06/08/19 08:25 Sodium Chloride 0.9% [Normal Saline 0.9%] 1,000 ml IV 125 mls/hr 06/08/19 09:00 Aspirin Chewable [[facility] Aspirin] 81 mg PO DAILY Heparin 5,000 unit SUBQ BID 06/08/19 Lunch Hepatic/Renal Diet [DIET] Subjective - Subjective Patient Reports: Feeling Better Objective Vital Signs: Vital Signs - 24 hr 06/07/19 06/07/19 06/08/19 20:28 21:53 00:11 Temperature 36.9 C 36.5 C Heart Rate 79 79 Heart Rate [ 119 H Monitoring electrodes] Respiratory 18 14 16 Rate Blood Pressure 180/85 H 151/78 H Blood Pressure 136/101 H [Left Brachial artery] O2 Saturation 94 96 96 06/08/19 06/08/19 04:26 08:00 Temperature 36.4 C L Heart Rate Heart Rate [ 85 73 Monitoring electrodes] Respiratory 17 20 Rate Blood Pressure Blood Pressure 138/63 H 133/60 H [Left Brachial artery] O2 Saturation 96 Oxygen O2 Source CPAP I&O (Last 24 Hrs): Intake and Output Totals x24h 06/06/19 06/07/19 06/08/19 23:59 23:59 23:59 Intake Total 500 1440.000 Output Total 900 Balance 500 540.000 General: Alert, No acute distress HEENT: Atraumatic Neck: Supple Lymphatic: no adenopathy Neuro: Alert, Non Focal, Oriented Times 3 Cardiovascular: Regular rate, Normal S1, Normal S2 Respiratory: Chest non-tender, No respiratory distress, Breath sounds nml Abdomen: Normal bowel sounds, Soft Extremities: Normal pulses - Results Results: Laboratory Results WBC 7.7 x10^3/uL (4.8-10.8) 06/08/19 04:50 RBC 3.53 10^6/uL (4.20-5.40) L 06/08/19 04:50 Hgb 10.5 g/dL (12.0-16.0) L 06/08/19 04:50 Hct 30.8 % (37.0-47.0) L 06/08/19 04:50 MCV 87.3 fL (81.0-99.0) 06/08/19 04:50 MCH 29.7 pg (27.0-31.0) 06/08/19 04:50 MCHC 34.1 g/dL (32.0-36.0) 06/08/19 04:50 RDW 12.3 % (12.0-15.0) 06/08/19 04:50 Plt Count 243 10^3/uL (130-450) 06/08/19 04:50 MPV 10.0 fL (7.9-10.8) 06/08/19 04:50 Neut # (Auto) 4.3 10^3/uL (1.5-6.6) 06/08/19 04:50 Lymph # (Auto) 2.3 10^3/uL (1.5-3.5) 06/08/19 04:50 [place] # (Auto) 0.9 10^3/uL (0.0-1.0) 06/08/19 04:50 Eos # (Auto) 0.2 10^3/uL (0.0-0.7) 06/08/19 04:50 Baso # (Auto) 0.0 10^3/uL (0.0-0.1) 06/08/19 04:50 Absolute Nucleated RBC 0.00 x10^3/uL 06/08/19 04:50 Nucleated RBC % 0.0 /100WBC 06/08/19 04:50 VBG pH 7.267 (7.31-7.41) L 06/07/19 21:06 VBG pCO2 43.1 mmHg (41-51) 06/07/19 21:06 VBG pO2 41.3 mmHg (25-47) 06/07/19 21:06 VBG HCO3 19.2 mmol/L (23-28) L 06/07/19 21:06 VBG Total CO2 20.5 mmol/L (24-29) L 06/07/19 21:06 VBG O2 Saturation 76.2 % (60-80) 06/07/19 21:06 VBG Base Excess -7.5 mmol/L (-2 - +2) L 06/07/19 21:06 Sodium 131 mmol/L (135-145) L 06/08/19 11:12 Potassium 6.0 mmol/L (3.5-5.0) H* 06/08/19 11:12 Chloride 103 mmol/L (101-111) 06/08/19 11:12 Carbon Dioxide 19 mmol/L (21-32) L 06/08/19 11:12 Anion Gap 9.0 (6-13) 06/08/19 11:12 BUN 70 mg/dL (6-20) H 06/08/19 11:12 Creatinine 3.1 mg/dL (0.4-1.0) H 06/08/19 11:12 Estimated GFR (MDRD) 16 (>89) L 06/08/19 11:12 Glucose 254 mg/dL (70-100) H 06/08/19 11:12 Glycated Hemoglobin 10.8 % (4.6-6.2) H 06/07/19 23:40 Estim Average Glucose 263 (70-100) H 06/07/19 23:40 Lactic Acid 1.4 mmol/L (0.5-2.2) 06/07/19 21:06 Calcium 8.5 mg/dL (8.5-10.3) 06/08/19 11:12 Total Bilirubin 0.5 mg/dL (0.2-1.0) 06/07/19 21:06 AST 21 IU/L (10-42) 06/07/19 21:06 ALT 22 IU/L (10-60) 06/07/19 21:06 Alkaline Phosphatase 85 IU/L (42-121) 06/07/19 21:06 Total Creatine Kinase 161 IU/L (22-269) 06/07/19 23:40 CK-MB (CK-2) 1.8 ng/mL (0.6-6.3) 06/07/19 23:40 Total Protein 7.2 g/dL (6.7-8.2) 06/07/19 21:06 Albumin 3.7 g/dL (3.2-5.5) 06/07/19 21:06 Globulin 3.5 g/dL (2.1-4.2) 06/07/19 21:06 Albumin/Globulin Ratio 1.1 (1.0-2.2) 06/07/19 21:06 Lipase 139 U/L (22-51) H 06/07/19 21:06 Urine Color YELLOW 06/08/19 01:00 Urine Clarity CLEAR (CLEAR) 06/08/19 01:00 Urine pH 5.5 PH (5.0-7.5) 06/08/19 01:00 Ur Specific [place] 1.025 (1.002-1.030) 06/08/19 01:00 Urine Protein >=300 mg/dL (NEGATIVE) H 06/08/19 01:00 Urine Glucose (UA) 500 mg/dL (NEGATIVE) H 06/08/19 01:00 Urine Ketones NEGATIVE mg/dL (NEGATIVE) 06/08/19 01:00 Urine Occult Blood SMALL (NEGATIVE) H 06/08/19 01:00 Urine Nitrite NEGATIVE (NEGATIVE) 06/08/19 01:00 Urine Bilirubin NEGATIVE (NEGATIVE) 06/08/19 01:00 Urine Urobilinogen 0.2 (NORMAL) E.U./dL (NORMAL) 06/08/19 01:00 Ur Leukocyte Esterase SMALL (NEGATIVE) H 06/08/19 01:00 Urine RBC 6-10 /HPF (0-5) H 06/08/19 01:00 Urine WBC 11-25 /HPF (0-5) H 06/08/19 01:00 Ur Squamous Epith Cells RARE Squamous (<= Few) 06/08/19 01:00 Urine Bacteria Rare /HPF (None Seen) 06/08/19 01:00 Urine Casts 6-10 Hyaline Casts /LPF 06/08/19 01:00 Ur Microscopic Review INDICATED 06/08/19 01:00 Urine Culture Comments INDICATED 06/08/19 01:00 ABX Reporting Has patient been on IV antibiotics over the past 48 hours?: No Current Medications - Current Medications Current Medications: Active Medications Hydrocodone Bitart/Acetaminophen ([place] 5/325) 1 tab PO Q4HR PRN PRN Reason: PAIN Last Admin: 06/08/19 05:05 Dose: 1 tab Albuterol () 10 mg INH ONCE ONE Stop: 06/08/19 12:03 Aspirin ([facility] Aspirin) 81 mg PO DAILY [facility] Last Admin: 06/08/19 10:18 Dose: 81 mg Escitalopram Oxalate (Lexapro) 20 mg PO DAILY [facility] Last Admin: 06/08/19 10:18 Dose: 20 mg Heparin Sodium (Porcine) () 5,000 unit SUBQ BID [facility] Last Admin: 06/08/19 10:15 Dose: 5,000 unit Sodium Chloride (Normal Saline 0.9%) 1,000 mls @ 125 mls/hr IV .Q8H [facility] Last Admin: 06/08/19 10:17 Dose: 125 mls/hr Insulin Aspart (Novolog) 3 - 11 unit SUBQ 0800,1200,1700,2100 [facility]; Protocol Last Admin: 06/08/19 11:52 Dose: 7 unit Insulin Human NPH (Humulin N) 35 unit SUBQ QPM [facility] Insulin Human NPH (Humulin N) 50 unit SUBQ DAILY [facility] Last Admin: 06/08/19 10:19 Dose: 50 unit Insulin Human Regular (Humulin R) 10 unit SUBQ ONCE ONE Stop: 06/08/19 12:00 Metoprolol Succinate (Toprol Xl) 100 mg PO QPM [facility] Last Admin: 06/08/19 00:55 Dose: 100 mg Pantoprazole Sodium (Protonix) 40 mg PO DAILY [facility] Last Admin: 06/08/19 10:18 Dose: 40 mg Sodium Chloride (Normal Saline Flush 0.9%) 10 ml IVP PRN PRN PRN Reason: NEEDED PER PROVIDER ORDERS Sodium Chloride (Normal Saline Flush 0.9%) 10 ml IVP 0100,0900,1700 [facility] Last Admin: 06/08/19 10:18 Dose: 10 ml Aspirin [Aspirin EC] 81 mg PO DAILY 04/20/19 Cetirizine [ZyrTEC] 10 mg PO DAILY 04/20/19 Escitalopram [Lexapro] 20 mg PO DAILY 04/20/19 Famotidine 20 mg PO DAILY 04/20/19 Furosemide 40 mg PO BID 04/20/19 Glucosamine HCl 3,000 mg PO DAILY 04/20/19 Insulin Lispro [Humalog Kwikpen U-100] 0 - 20 unit SUBQ TIDWM 04/20/19 Insulin NPH Human Isophane [Humulin N Kwikpen] 35 units SUBQ QPM 04/20/19 Insulin NPH Human Isophane [Humulin N Kwikpen] 50 unit SUBQ QDBREAKFAST 04/20/19 Losartan Potassium 100 mg PO DAILY 04/20/19 Metformin HCl 1,000 mg PO BID 04/20/19 Metoprolol Succinate 100 mg PO QPM 04/20/19 Potassium Chloride [K-Dur] 40 meq PO ONCE 04/20/19 Rosuvastatin Calcium 40 mg PO DAILY 04/20/19 Spironolactone 25 mg PO DAILY 04/20/19 cloNIDine HCL [Clonidine HCl] 0.1 mg PO QPM 04/20/19
[2019-06-08] MEDS ORDERED: INSULIN REGULAR HUMAN 300 UNIT/3 ML VIAL SUBQ SCH (11:59)
[2019-06-08] MEDS ORDERED: ALBUTEROL NEB 2.5 MG/3 ML INH SCH (12:02)
[2019-06-08 20:17] LABS: CALCIUM 8.1 mg/dL (8.5-10.3); CREATININE 3.2 mg/dL (0.4-1.0)
[2019-06-08] MEDS ORDERED: SODIUM POLYSTYRENE SULFONATE 15 GM/60 ML BOTTLE PO ONE (22:15)
[2019-06-09] MEDS: SODIUM CHLORIDE FLUSH 0.9% 10 ML SYRINGE IVP SCH ×3 (02:03→17:22)
[2019-06-09] MEDS: SODIUM CHLORIDE 0.9% 1,000 ML IV SCH ×3 (02:09→19:30)
[2019-06-09 05:15] LABS: BASOPHILS % (AUTO) 0.7 %; EOSINOPHILS # (AUTO) 0.3 10^3/uL (0.0-0.7); EOSINOPHILS % (AUTO) 5.5 %; HGB - HEMOGLOBIN 9.7 g/dL (12.0-16.0); LYMPHOCYTES # (AUTO) 1.9 10^3/uL (1.5-3.5); MEAN CORPUSCULAR HEMOGLOBIN 28.6 pg (27.0-31.0); MEAN CORPUSCULAR HGB CONC 33.1 g/dL (32.0-36.0); MEAN CORPUSCULAR VOLUME 86.4 fL (81.0-99.0); MEAN PLATELET VOLUME 9.7 fL (7.9-10.8); MONOCYTES # (AUTO) 0.6 10^3/uL (0.0-1.0); MONOCYTES % (AUTO) 9.4 %; NEUTROPHILS # (AUTO) 3.1 10^3/uL (1.5-6.6); NEUTROPHILS % (AUTO) 52.2 %; PLT - PLATELET COUNT 207 10^3/uL (130-450); RED BLOOD COUNT 3.39 10^6/uL (4.20-5.40); RED CELL DISTRIBUTION WIDTH 12.4 % (12.0-15.0); WHITE BLOOD COUNT 5.8 x10^3/uL (4.8-10.8)
[2019-06-09 05:24] LABS: CALCIUM 8.4 mg/dL (8.5-10.3); CREATININE 2.7 mg/dL (0.4-1.0)
[2019-06-09] MEDS: INSULIN ASPART 300 UNIT/3 ML PEN SUBQ SCH ×4 (07:51→22:14)
[2019-06-09] MEDS: HEPARIN 5,000 UNIT/ML VIAL SUBQ SCH ×2 (08:20→22:12)
[2019-06-09] MEDS: PANTOPRAZOLE 40 MG TABLET PO SCH (08:20)
[2019-06-09] MEDS: ESCITALOPRAM 10 MG TABLET PO SCH (08:20)
[2019-06-09] MEDS: INSULIN NPH HUMAN 300 UNIT/3 ML VIAL SUBQ SCH ×2 (08:20→22:13)
[2019-06-09] MEDS: ASPIRIN CHEW 81 MG TABLET PO SCH (08:20)
[2019-06-09] MEDS: HYDROcod/ACETAM 5/325 MG TABLET PO PRN ×4 (08:21→23:32)
--- NOTE | 2019-06-09 19:08 | PROVIDER PROGRESS NOTE ---
Assessment/Plan - Problem List (1) Hyperkalemia Assessment/Plan: Resolved. Patient's potassium normalized today it was 4.8. (2) Renal insufficiency Assessment/Plan: Patient's creatinine today is 2.7 and a GFR of 18. On April 09, 2019 patient's creatinine was 1.9 and a GFR of 27. We will continue IV hydration. Anticipating further improvement on recheck tomorrow Patient will need to see a commercial driver's license driver upon discharge (3) Hypertension Assessment/Plan: Patient is on metoprolol 100 mg daily. Losartan and spironolactone and Lasix are on hold. (4) Diabetes mellitus Assessment/Plan: Patient is on insulin NPH 50 units in the morning and 35 units at night. Sliding scale insulin also ordered. HgA1C was 10.8 Accu-Chek. (5) Depression Assessment/Plan: On Lexapro (6) GERD (gastroesophageal reflux disease) Assessment/Plan: On Protonix (7) Right wrist fracture Assessment/Plan: Pain managed with Howe as needed (8) Hyperlipemia Assessment/Plan: Continue to hold rosuvastatin - Current Meds Current Meds: Current Medications Generic Name Dose Route Start Last Admin Trade Name Freq PRN Reason Stop Dose Admin Hydrocodone Bitart/Acetaminophen 1 tab 06/07/19 23:43 06/09/19 13:16 Howe 5/325 PO 1 tab Q4HR PRN Administration PAIN Aspirin 81 mg 06/08/19 09:00 06/09/19 08:20 St Sudeep Aspirin PO 81 mg DAILY OSMANI Administration Escitalopram Oxalate 20 mg 06/08/19 09:00 06/09/19 08:20 Lexapro PO 20 mg DAILY OSMANI Administration Heparin Sodium (Porcine) 5,000 unit 06/08/19 09:00 06/09/19 08:20 SUBQ 5,000 unit BID OSMANI Administration Sodium Chloride 1,000 mls @ 125 mls/hr 06/08/19 08:25 06/09/19 14:48 Normal Saline 0.9% IV 125 mls/hr .Q8H OSMANI Infusion Insulin Aspart 3 - 11 unit 06/08/19 08:00 06/09/19 17:20 Novolog SUBQ 5 unit 0800,1200,1700,2100 OSMANI Administration Protocol Insulin Human NPH 35 unit 06/08/19 21:00 06/08/19 21:24 Humulin N SUBQ 35 unit QPM OSMANI Administration Insulin Human NPH 50 unit 06/08/19 10:00 06/09/19 08:20 Humulin N SUBQ 50 unit DAILY OSMANI Administration Metoprolol Succinate 100 mg 06/07/19 21:00 06/08/19 21:22 Toprol Xl PO 100 mg QPM OSMANI Administration Pantoprazole Sodium 40 mg 06/08/19 09:00 06/09/19 08:20 Protonix PO 40 mg DAILY OSMANI Administration Sodium Chloride 10 ml 06/08/19 01:00 06/09/19 17:22 Normal Saline Flush 0.9% IVP 10 ml 0100,0900,1700 OSMANI Administration - Lab Result Fish Bone Diagrams: 06/09/19 04:35 06/09/19 04:35 - Additional Planning My Orders: My Active Orders 06/08/19 21:00 Insulin NPH Human [Humulin N] 35 unit SUBQ QPM 06/10/19 05:00 BMP - BASIC METABOLIC PANEL [CHEM] DAILYLAB CBC - COMP BLD CT W/AUTO DIFF [HEME] DAILYLAB Subjective - Subjective Patient Reports: Other (Patient seen and examined this evening. She was resting comfortably in bed at time of my exam. She denied any complaints at the moment she denied chest pain, difficulty in breathing, abdominal pain, nausea, vomiting, fever or chills.) Objective Vital Signs: Vital Signs - 24 hr 06/08/19 06/08/19 06/09/19 20:51 23:55 03:15 Temperature 36.4 C L 36.5 C 36.5 C Heart Rate [ 83 82 78 Brachial] Respiratory 19 16 16 Rate Blood Pressure 133/61 H 145/73 H 152/67 H [Left Brachial artery] O2 Saturation 97 96 97 06/09/19 06/09/19 06/09/19 07:31 12:25 16:00 Temperature 36.7 C 36.5 C 36.5 C Heart Rate [ 78 82 81 Brachial] Respiratory 20 18 19 Rate Blood Pressure 153/73 H 171/77 H 151/79 H [Left Brachial artery] O2 Saturation 97 96 97 Oxygen O2 Source Room air I&O (Last 24 Hrs): Intake and Output Totals x24h 06/07/19 06/08/19 06/09/19 23:59 23:59 23:59 Intake Total 500 2560.000 3494.583 Output Total 2300 2800 Balance 500 260.000 694.583 General: Alert, Oriented x3, No acute distress HEENT: PERRLA, EOMI Neck: Supple, No JVD Neuro: Alert, Non Focal, Oriented Times 3 Cardiovascular: Regular rate Respiratory: Chest non-tender, No respiratory distress, Breath sounds nml Abdomen: Normal bowel sounds, Soft Extremities: No clubbing, No cyanosis - Results Results: Laboratory Results WBC 5.8 x10^3/uL (4.8-10.8) 06/09/19 04:35 RBC 3.39 10^6/uL (4.20-5.40) L 06/09/19 04:35 Hgb 9.7 g/dL (12.0-16.0) L 06/09/19 04:35 Hct 29.3 % (37.0-47.0) L 06/09/19 04:35 MCV 86.4 fL (81.0-99.0) 06/09/19 04:35 MCH 28.6 pg (27.0-31.0) 06/09/19 04:35 MCHC 33.1 g/dL (32.0-36.0) 06/09/19 04:35 RDW 12.4 % (12.0-15.0) 06/09/19 04:35 Plt Count 207 10^3/uL (130-450) 06/09/19 04:35 MPV 9.7 fL (7.9-10.8) 06/09/19 04:35 Neut # (Auto) 3.1 10^3/uL (1.5-6.6) 06/09/19 04:35 Lymph # (Auto) 1.9 10^3/uL (1.5-3.5) 06/09/19 04:35 [place] # (Auto) 0.6 10^3/uL (0.0-1.0) 06/09/19 04:35 Eos # (Auto) 0.3 10^3/uL (0.0-0.7) 06/09/19 04:35 Baso # (Auto) 0.0 10^3/uL (0.0-0.1) 06/09/19 04:35 Absolute Nucleated RBC 0.00 x10^3/uL 06/09/19 04:35 Nucleated RBC % 0.0 /100WBC 06/09/19 04:35 VBG pH 7.267 (7.31-7.41) L 06/07/19 21:06 VBG pCO2 43.1 mmHg (41-51) 06/07/19 21:06 VBG pO2 41.3 mmHg (25-47) 06/07/19 21:06 VBG HCO3 19.2 mmol/L (23-28) L 06/07/19 21:06 VBG Total CO2 20.5 mmol/L (24-29) L 06/07/19 21:06 VBG O2 Saturation 76.2 % (60-80) 06/07/19 21:06 VBG Base Excess -7.5 mmol/L (-2 - +2) L 06/07/19 21:06 Sodium 138 mmol/L (135-145) 06/09/19 04:35 Potassium 4.8 mmol/L (3.5-5.0) 06/09/19 04:35 Chloride 110 mmol/L (101-111) 06/09/19 04:35 Carbon Dioxide 21 mmol/L (21-32) 06/09/19 04:35 Anion Gap 7.0 (6-13) 06/09/19 04:35 BUN 56 mg/dL (6-20) H 06/09/19 04:35 Creatinine 2.7 mg/dL (0.4-1.0) H 06/09/19 04:35 Estimated GFR (MDRD) 18 (>89) L 06/09/19 04:35 Glucose 162 mg/dL (70-100) H 06/09/19 04:35 Glycated Hemoglobin 10.8 % (4.6-6.2) H 06/07/19 23:40 Estim Average Glucose 263 (70-100) H 06/07/19 23:40 Lactic Acid 1.4 mmol/L (0.5-2.2) 06/07/19 21:06 Calcium 8.4 mg/dL (8.5-10.3) L 06/09/19 04:35 Total Bilirubin 0.5 mg/dL (0.2-1.0) 06/07/19 21:06 AST 21 IU/L (10-42) 06/07/19 21:06 ALT 22 IU/L (10-60) 06/07/19 21:06 Alkaline Phosphatase 85 IU/L (42-121) 06/07/19 21:06 Total Creatine Kinase 161 IU/L (22-269) 06/07/19 23:40 CK-MB (CK-2) 1.8 ng/mL (0.6-6.3) 06/07/19 23:40 Total Protein 7.2 g/dL (6.7-8.2) 06/07/19 21:06 Albumin 3.7 g/dL (3.2-5.5) 06/07/19 21:06 Globulin 3.5 g/dL (2.1-4.2) 06/07/19 21:06 Albumin/Globulin Ratio 1.1 (1.0-2.2) 06/07/19 21:06 Lipase 139 U/L (22-51) H 06/07/19 21:06 Urine Color YELLOW 06/08/19 01:00 Urine Clarity CLEAR (CLEAR) 06/08/19 01:00 Urine pH 5.5 PH (5.0-7.5) 06/08/19 01:00 Ur Specific [place] 1.025 (1.002-1.030) 06/08/19 01:00 Urine Protein >=300 mg/dL (NEGATIVE) H 06/08/19 01:00 Urine Glucose (UA) 500 mg/dL (NEGATIVE) H 06/08/19 01:00 Urine Ketones NEGATIVE mg/dL (NEGATIVE) 06/08/19 01:00 Urine Occult Blood SMALL (NEGATIVE) H 06/08/19 01:00 Urine Nitrite NEGATIVE (NEGATIVE) 06/08/19 01:00 Urine Bilirubin NEGATIVE (NEGATIVE) 06/08/19 01:00 Urine Urobilinogen 0.2 (NORMAL) E.U./dL (NORMAL) 06/08/19 01:00 Ur Leukocyte Esterase SMALL (NEGATIVE) H 06/08/19 01:00 Urine RBC 6-10 /HPF (0-5) H 06/08/19 01:00 Urine WBC 11-25 /HPF (0-5) H 06/08/19 01:00 Ur Squamous Epith Cells RARE Squamous (<= Few) 06/08/19 01:00 Urine Bacteria Rare /HPF (None Seen) 06/08/19 01:00 Urine Casts 6-10 Hyaline Casts /LPF 06/08/19 01:00 Ur Microscopic Review INDICATED 06/08/19 01:00 Urine Culture Comments INDICATED 06/08/19 01:00 ABX Reporting Has patient been on IV antibiotics over the past 48 hours?: No
[2019-06-09] MEDS: METOPROLOL SUCCINATE 50 MG TABLET PO SCH (22:12)
[2019-06-10] MEDS: SODIUM CHLORIDE 0.9% 1,000 ML IV SCH ×2 (04:13→14:33)
[2019-06-10] MEDS: SODIUM CHLORIDE FLUSH 0.9% 10 ML SYRINGE IVP SCH ×3 (04:14→18:03)
[2019-06-10 05:12] LABS: BASOPHILS % (AUTO) 0.7 %; EOSINOPHILS # (AUTO) 0.3 10^3/uL (0.0-0.7); EOSINOPHILS % (AUTO) 6.6 %; LYMPHOCYTES # (AUTO) 1.7 10^3/uL (1.5-3.5); LYMPHOCYTES % (AUTO) 39.8 %; MEAN CORPUSCULAR HEMOGLOBIN 29.6 pg (27.0-31.0); MEAN PLATELET VOLUME 9.4 fL (7.9-10.8); MONOCYTES # (AUTO) 0.4 10^3/uL (0.0-1.0); MONOCYTES % (AUTO) 9.7 %; NEUTROPHILS # (AUTO) 1.8 10^3/uL (1.5-6.6); PLT - PLATELET COUNT 214 10^3/uL (130-450); RED BLOOD COUNT 3.38 10^6/uL (4.20-5.40); RED CELL DISTRIBUTION WIDTH 12.5 % (12.0-15.0); WHITE BLOOD COUNT 4.2 x10^3/uL (4.8-10.8)
[2019-06-10 05:21] LABS: CALCIUM 8.5 mg/dL (8.5-10.3); CREATININE 2.3 mg/dL (0.4-1.0)
[2019-06-10] MEDS: HEPARIN 5,000 UNIT/ML VIAL SUBQ SCH (08:13)
[2019-06-10] MEDS: INSULIN NPH HUMAN 300 UNIT/3 ML VIAL SUBQ SCH (08:14)
[2019-06-10] MEDS: ESCITALOPRAM 10 MG TABLET PO SCH (08:14)
[2019-06-10] MEDS: PANTOPRAZOLE 40 MG TABLET PO SCH (08:14)
[2019-06-10] MEDS: INSULIN ASPART 300 UNIT/3 ML PEN SUBQ SCH ×3 (08:15→18:03)
[2019-06-10] MEDS: ASPIRIN CHEW 81 MG TABLET PO SCH (08:15)
[2019-06-10] MEDS ORDERED: DOCUSATE SODIUM 250 MG CAPSULE PO SCH (09:00)
[2019-06-10] MEDS ORDERED: SENNA 8.6 MG TABLET PO SCH (09:00)
[2019-06-10] MEDS ORDERED: polyethylene glycoL 3350 17 GM PACKET PO SCH (09:00)
[2019-06-10] MEDS: HYDROcod/ACETAM 5/325 MG TABLET PO PRN (14:33)
[2019-06-10 17:13] LABS: CALCIUM 8.5 mg/dL (8.5-10.3)
--- NOTE | 2019-06-10 19:18 | DISCHARGE SUMMARY ---
Discharge Summary Admit Date: 06/07/19 Discharge Date: 06/10/19 Discharging Provider: Kevin Lr Primary Care Provider: Farrukh Mcbride Code Status: Attempt Resuscitation Condition at Discharge: Stable Discharge Disposition: 01 Home, Self Care - DIAGNOSES Admission Diagnoses: 1 hyperkalemia 2 renal insufficiency 3 hypertension 4 diabetes mellitus 5 depression 6 GERD 7 right wrist fracture 8 hyperlipidemia Discharge Diagnoses with Status of Each Condition: 1 hyperkalemia: resolved 2 renal insufficiency: Acute on Chronic: Improved 3 hypertension: Chronic 4 diabetes mellitus: Chronic. Poorly controlled 5 depression: Chronic 6 GERD: Chronic 7 right wrist fracture: Chronic 8 hyperlipidemia: Chronic - HPI History of Present Illness: Patient is a 53-year-old female who presented to the ED today via EMS. She was at the dinner table with her family and suddenly felt like she had to stand. She attempted to stand but her legs would not support her. She was helped into a chair by her and a friend. Later she attempted to stand again and was unable to so her called EMS after they were advised to do so by the nurse line. In the ED work-up included BMP which showed a potassium level of 7.7 and a creatinine of 3.2. Nephrology at [facility] was consulted by the ED ph ysician. It was advised to continue managing with IV hydration, albuterol, Kayexalate and insulin. As a result she was presented for admission. At bedside she denies chest pain, dyspnea, abdominal pain, fever or chills. She has been nauseous but no vomiting. She denied lightheadedness. She was seen in the emergency department on 29 May 2019 after sustaining a mechanical fall. She has a right wrist fracture as a result. However right arm is currently in a brace. She stopped taking Lasix 1 to 2 weeks ago. However she has continued to take spironolactone and supplemental potassium chloride tablets daily during this time. She is also on losartan, metformin, rosuvastatin. - HOSPITAL COURSE Hospital Course: Patient was admitted and placed on normal saline 125 mils per hour. This was continued for the 3-day duration she was in the hospital. In the ED she received Kayexalate, albuterol and insulin. This was repeated the subsequent day. Her potassium improved from 7.7 down to 6.9 and subsequently to 4.1. On the day of discharge her potassium was 4.5. Her losartan, Lasix, spironolactone, metformin and rosuvastatin were held at admission. The losartan, Lasix, spironolactone were not resumed at time of discharge. She also had renal insufficiency. Her creatinine upon presentation was 3.3 and her GFR was 15. With IV hydration her creatinine improved to 2.0 and her GFR was 26 upon discharge. She had a renal ultrasound done on May 31, 2019. The results are dictated below. It is expected that Dr. Mcbride would refer her to an teacher resource for further work-up of her kidney disease. The likely contributing factor to her kidney disease is her diabetes which is very poorly controlled and hypertension. Upon presentation her blood glucose level was 428. Hemoglobin A1c was 10.8. The rest of her stay was unremarkable. - ALLERGIES Allergies/Adverse Reactions: Allergies Allergy/AdvReac Type Severity Reaction Status Date / Time amlodipine Allergy Itching Verified 05/29/19 19:43 hydralazine Allergy Rash Verified 05/29/19 19:43 morphine Allergy Rash Verified 05/29/19 19:43 prochlorperazine Allergy Unknown Verified 05/29/19 19:43 [From Compazine] liraglutide [From Victoza] AdvReac Emesis Verified 05/29/19 19:43 - MEDICATIONS Home Medications: Ambulatory Orders Medication Instructions Recorded Confirmed Aspirin [Aspirin EC] 81 mg PO DAILY 04/20/19 06/08/19 Cetirizine [ZyrTEC] 10 mg PO DAILY 04/20/19 06/08/19 Escitalopram [Lexapro] 20 mg PO DAILY 04/20/19 06/08/19 Famotidine 20 mg PO DAILY 04/20/19 06/08/19 Glucosamine HCl 3,000 mg PO DAILY 04/20/19 06/08/19 Insulin Lispro [Humalog Kwikpen 0 - 20 unit SUBQ TIDWM 04/20/19 06/08/19 U-100] Insulin NPH Human Isophane 35 units SUBQ QPM 04/20/19 06/08/19 [Humulin N Kwikpen] Insulin NPH Human Isophane 50 unit SUBQ QDBREAKFAST 04/20/19 06/08/19 [Humulin N Kwikpen] Metformin HCl 1,000 mg PO BID 04/20/19 06/08/19 Metoprolol Succinate 100 mg PO QPM 04/20/19 06/08/19 Rosuvastatin Calcium 40 mg PO DAILY 04/20/19 06/08/19 HYDROcod/ACETAM 5/325 [[place] 5/325] 1 - 2 ea PO Q6H PRN #20 tablet 05/29/19 06/08/19 - PHYSICAL EXAM AT DISCHARGE General Appearance: positive: No acute distress, Alert Eyes Bilateral: positive: PERRL, EOMI ENT: positive: Pharynx nml, No signs of dehydration Neck: positive: No JVD, Trachea midline Respiratory: positive: Chest non-tender, No respiratory distress, Breath sounds nml. negative: Wheezes, Rales, Rhonchi Cardiovascular: positive: Regular rate & rhythm Abdomen: positive: Non-tender, No organomegaly, Nml bowel sounds, No distention. negative: Guarding, Rebound Back: positive: Nml inspection Skin: positive: Color nml, No rash, Warm Extremities: positive: No pedal edema, Other (Right wrist in splint) Neurologic/Psychiatric: positive: Oriented x3, Mood/affect nml - LABS Result Diagrams: 06/10/19 05:00 06/10/19 16:55 - DIAGNOSTIC IMAGING Diagnostic Imaging Results Comments: Renal ultrasound done on May 31, 2019 showed Renal arteries are largely obscured bilaterally due to patient body habitus, nondiagnostic for renal artery stenosis. Consider CTA/MRA for further evaluation. Mildly echogenic kidneys with elevated renal resistive indices suggesting medical renal disease - FOLLOW UP Follow Up: Follow-up with Dr. Juan Carlos Mcbride as scheduled on Wednesday, June 12, 2019 - TIME SPENT Time Spent in Discharge (Minutes): 35
--- NOTE | 2019-06-10 19:20 | Discharge Plan ---
Discharge Plan Problem Reviewed?: Yes Disposition: Home, Self Care Condition: Stable Diet: Regular Activity Restrictions: Activity as Tolerated Shower Restrictions: No Driving Restrictions: No Health Concerns: You were admitted with chief complaint of hyperkalemia. This is likely because you had been taking potassium chloride, spironolactone, losartan, rosuvastatin and had discontinued the oral Lasix. You were admitted and these medications were all held. You were given IV insulin, kayexalate and albuterol which helped to lower your potassium. Your potassium decreased steadily over the 3 days from 7.7-4.0 today upon discharge is 4.5 Your losartan, spironolactone and Lasix have been discontinued It is expected that you follow-up with your primary care physician as scheduled on Tuesday06/12/2019. You also had renal insufficiency and as above losartan, spironolactone, Lasix and metformin were all held. You received IV fluids and your creatinine improved from 3.3 down to 2.0 You recently had a renal ultrasound done at [facility] which was ordered by your primary care it is my expectation that your primary care will refer you to a jewel inspector for further work-up for kidney disease this is because there is been a significant drop in your kidney function as determined by a GFR from 3 years ago to today. Assessment: Patient expressed understanding No Smoking: If you smoke, Please STOP! Call for help. Follow-up with: Farrukh Mcbride MD [Primary Care Provider] -
[2019-06-10 19:56] VITALS: BP 156/84
== END 2019-06-10 20:20 | disposition home or self-care (01) | DRG 641 ==
LOC: EDUNIT# → ED 20:21 → MS2 23:01 → OBSVTOIN 06-09 08:01
PROVIDERS: ADMIT Internal Medicine; ATTEND Internal Medicine
DX: E87.5 Hyperkalemia (principal); N17.9 Acute kidney failure, unspecified; E11.65 Type 2 diabetes mellitus with hyperglycemia; I12.9 Hypertensive chronic kidney disease with stage 1 through stage 4 chronic kidney disease, or unspecified chronic kidney disease; E11.22 Type 2 diabetes mellitus with diabetic chronic kidney disease; N18.9 Chronic kidney disease, unspecified; E86.0 Dehydration; F32.9 Major depressive disorder, single episode, unspecified; K21.9 Gastro-esophageal reflux disease without esophagitis; E78.5 Hyperlipidemia, unspecified; T50.1X6A Underdosing of loop [high-ceiling] diuretics, initial encounter; Z91.138 Patient's unintentional underdosing of medication regimen for other reason; Y92.009 Unspecified place in unspecified non-institutional (private) residence as the place of occurrence of the external cause; S62.101D Fracture of unspecified carpal bone, right wrist, subsequent encounter for fracture with routine healing; W01.0XXD Fall on same level from slipping, tripping and stumbling without subsequent striking against object, subsequent encounter; Z79.82 Long term (current) use of aspirin; Z79.4 Long term (current) use of insulin; Z87.442 Personal history of urinary calculi
CPT/HCPCS: 36415; 80048; 80053; 81001; 82550; 82553; 82803; 83036; 83605; 83690; 84132; 85025; 87086; 93005; 94640; 96361; 96372; 96374; 99285; A9270; G0378; J1815; 81003

== ENCOUNTER 2019-06-14 08:34 | Outpatient (CLI) | payer BC ==
--- NOTE | 2019-06-14 11:22 | XRAY Report ---
Reason: OTHER EXTRAARTICULAR FRACTURE OF LOWER END OF RT R Procedure Date: 06/14/2019 Accession Number: [id number] / [id number] Procedure: XR - Wrist 2 View RT CPT Code: Final Report FULL RESULT: EXAM: RIGHT WRIST RADIOGRAPHY EXAM DATE: 06/14/2019 08:50 AM. CLINICAL HISTORY: Right radius fracture. COMPARISON: WRIST 2 VIEW RT 06/05/2019 8:46 AM. TECHNIQUE: 2 views. FINDINGS: Bones: Overlying cast status post reduction right radius fracture. Alignment to the fracture near anatomic. There is remote distal ulnar fracture. Joints: Radiocarpal articulation is maintained. Soft Tissues: No unexpected soft tissue findings. IMPRESSION: Healing fracture through the distal right radius. Fracture lines are less distinct. No new radiographic abnormalities are seen. RADIA
== END 2019-06-14 08:35 | disposition home or self-care (01) ==
LOC: DI 08:34
PROVIDERS: ATTEND Orthopaedic Surgery Sports Medicine
DX: S52.551D Other extraarticular fracture of lower end of right radius, subsequent encounter for closed fracture with routine healing (principal)

== ENCOUNTER 2019-06-21 12:17 | Outpatient (CLI) | payer BC ==
[2019-06-21 12:39] LABS: CALCIUM 9.1 mg/dL (8.5-10.3); CREATININE 1.7 mg/dL (0.4-1.0)
== END 2019-06-21 12:18 | disposition home or self-care (01) ==
LOC: LAB 12:17
PROVIDERS: ATTEND Internal Medicine
DX: F41.8 Other specified anxiety disorders (principal); I12.9 Hypertensive chronic kidney disease with stage 1 through stage 4 chronic kidney disease, or unspecified chronic kidney disease; E11.22 Type 2 diabetes mellitus with diabetic chronic kidney disease; N18.9 Chronic kidney disease, unspecified; E78.5 Hyperlipidemia, unspecified; R06.02 Shortness of breath
CPT/HCPCS: 36415; 80048

== ENCOUNTER 2019-06-28 10:36 | Outpatient (CLI) | payer BC ==
--- NOTE | 2019-06-29 09:03 | XRAY Report ---
Reason: OTHER EXTRAARTICULAR FRACTURE OF LOWER END OF RT R Procedure Date: 06/28/2019 Accession Number: [id number] / [id number] Procedure: XR - Wrist 2 View RT CPT Code: Final Report FULL RESULT: EXAM: RIGHT WRIST RADIOGRAPHY EXAM DATE: 06/28/2019 10:45 AM. CLINICAL HISTORY: Other extraarticular fracture of lower end of right wrist follow-up. COMPARISON: WRIST 2 VIEW RT 06/14/2019 8:48 AM. TECHNIQUE: 2 views. FINDINGS: Wrist in cast. Alignment of distal radial fracture appears normal. Remote left ulnar fracture. Sclerotic changes along the fracture line of the radius, consistent with healing. IMPRESSION: Healing distal radial fracture with normal alignment. RADIA
== END 2019-06-28 10:37 | disposition home or self-care (01) ==
LOC: DI 10:36
PROVIDERS: ATTEND Orthopaedic Surgery Sports Medicine
DX: S52.551D Other extraarticular fracture of lower end of right radius, subsequent encounter for closed fracture with routine healing (principal)

== ENCOUNTER 2019-07-13 09:54 | Outpatient (CLI) | payer BC ==
--- NOTE | 2019-07-13 16:36 | XRAY Report ---
Reason: RIGHT DISTAL RADIUS FRACTURE Procedure Date: 07/13/2019 Accession Number: [id number] / [id number] Procedure: WCP - Wrist 3 View RT CPT Code: Final Report FULL RESULT: EXAM: RIGHT WRIST RADIOGRAPHY EXAM DATE: 07/13/2019 10:16 AM. CLINICAL HISTORY: Right distal radius fracture. COMPARISON: WRIST 2 VIEW RT 06/28/2019 10:41 AM WRIST 4 VIEW RT 05/29/2019 8:10 PM. TECHNIQUE: 3 views. FINDINGS: Bones: Healing distal radial fracture. Old ununited ulnar styloid process fracture. Bones are osteopenic. Joints: Normal. No subluxations. Soft Tissues: Normal. No soft tissue swelling. IMPRESSION: 1. Healing distal radial fracture. 2. Old ununited ulnar styloid process fracture. 3. Osteopenia. RADIA
== END 2019-07-13 23:59 | disposition home or self-care (01) ==
LOC: DI.WCP 09:54
PROVIDERS: ATTEND Orthopaedic Surgery
DX: S52.551D Other extraarticular fracture of lower end of right radius, subsequent encounter for closed fracture with routine healing (principal); S52.611K Displaced fracture of right ulna styloid process, subsequent encounter for closed fracture with nonunion; M85.88 Other specified disorders of bone density and structure, other site; I12.9 Hypertensive chronic kidney disease with stage 1 through stage 4 chronic kidney disease, or unspecified chronic kidney disease; E87.5 Hyperkalemia; N18.9 Chronic kidney disease, unspecified; E11.22 Type 2 diabetes mellitus with diabetic chronic kidney disease
CPT/HCPCS: 36415; 80069; 80074; 81001; 81599; 82306; 82570; 83036; 83970; 84156; 85025; 86038; 86160; 87086; 87389

== ENCOUNTER 2019-07-13 11:03 | Outpatient (CLI) | payer BC ==
[2019-07-13 11:33] LABS: BILIRUBIN,URINE NEGATIVE (NEGATIVE); GLUCOSE, URINE (UA) 500 mg/dL (NEGATIVE); KETONES,URINE (UA) NEGATIVE (NEGATIVE); LEUKOCYTE ESTERASE, URINE NEGATIVE (NEGATIVE); NITRITE,URINE NEGATIVE (NEGATIVE); OCCULT BLOOD,URINE SMALL (NEGATIVE); PROTEIN,URINE >=300 mg/dL (NEGATIVE); UROBILINOGEN,URINE 0.2 (NORMAL) E.U./dL (NORMAL)
[2019-07-13 11:35] LABS: BASOPHILS % (AUTO) 0.6 %; EOSINOPHILS # (AUTO) 0.2 10^3/uL (0.0-0.7); EOSINOPHILS % (AUTO) 3.2 %; HGB - HEMOGLOBIN 11.2 g/dL (12.0-16.0); LYMPHOCYTES # (AUTO) 1.6 10^3/uL (1.5-3.5); LYMPHOCYTES % (AUTO) 25.1 %; MEAN CORPUSCULAR HEMOGLOBIN 29.6 pg (27.0-31.0); MEAN PLATELET VOLUME 9.6 fL (7.9-10.8); MONOCYTES # (AUTO) 0.6 10^3/uL (0.0-1.0); MONOCYTES % (AUTO) 8.7 %; NEUTROPHILS % (AUTO) 61.9 %; PLT - PLATELET COUNT 258 10^3/uL (130-450); RED BLOOD COUNT 3.78 10^6/uL (4.20-5.40); RED CELL DISTRIBUTION WIDTH 13.2 % (12.0-15.0); WHITE BLOOD COUNT 6.5 x10^3/uL (4.8-10.8)
[2019-07-13 11:36] LABS: CLARITY,URINE CLEAR (CLEAR)
[2019-07-13 11:39] LABS: RBC,URINE 0-5 /HPF (0-5); SQUAMOUS EPITHELIAL CELL,UR FEW Squamous (<= Few)
[2019-07-13 11:40] LABS: BACTERIA,URINE Few /HPF (None Seen)
[2019-07-13 11:45] LABS: ALBUMIN 3.3 g/dL (3.2-5.5); CREATININE 2.2 mg/dL (0.4-1.0); PHOSPHORUS 4.5 mg/dL (2.5-4.6)
[2019-07-13 12:05] LABS: CREATININE,URINE 99.4 mg/dL; PROTEIN/CREATININE RATIO,URINE 11.7 (<=0.2)
[2019-07-13 12:42] LABS: HB2 TOTAL 11.6 g/dL; HEMOGLOBIN A1C 0.83 g/dL; HEMOGLOBIN A1C % 8.7 % (4.6-6.2)
[2019-07-14 07:25] LABS: HIV AG/AB 4TH GEN NON-REACTIVE (NON-REACTIVE)
[2019-07-14 13:44] LABS: HEPATITIS A IGM NON-REACTIVE (NON-REACTIVE); HEPATITIS B SURFACE ANTIGEN NON-REACTIVE (NON-REACTIVE); HEPATITIS C ANTIBODY NON-REACTIVE (NON-REACTIVE)
[2019-07-16 11:50] LABS: ANA SCREEN NEGATIVE (NEGATIVE)
[2019-07-17 11:39] LABS: COMPLEMENT COMPONENT C3C 182 mg/dL (83-193); COMPLEMENT COMPONENT C4C 41 mg/dL (15-57)
== END 2019-07-13 11:04 | disposition home or self-care (01) ==
LOC: LAB 11:03
PROVIDERS: ATTEND Internal Medicine Nephrology
DX: I12.9 Hypertensive chronic kidney disease with stage 1 through stage 4 chronic kidney disease, or unspecified chronic kidney disease (principal); E87.5 Hyperkalemia; N18.9 Chronic kidney disease, unspecified; E11.22 Type 2 diabetes mellitus with diabetic chronic kidney disease
CPT/HCPCS: 36415; 80069; 80074; 81001; 81599; 82306; 82570; 83036; 83970; 84156; 85025; 86038; 86160; 87086; 87389

== ENCOUNTER 2019-07-18 15:38 | Outpatient (CLI) | payer BC ==
[2019-07-18 16:19] LABS: BASOPHILS # (AUTO) 0.1 10^3/uL (0.0-0.1); BILIRUBIN,URINE NEGATIVE (NEGATIVE); EOSINOPHILS # (AUTO) 0.2 10^3/uL (0.0-0.7); EOSINOPHILS % (AUTO) 2.4 %; GLUCOSE, URINE (UA) >=1000 mg/dL (NEGATIVE); HGB - HEMOGLOBIN 11.3 g/dL (12.0-16.0); KETONES,URINE (UA) NEGATIVE (NEGATIVE); LEUKOCYTE ESTERASE, URINE NEGATIVE (NEGATIVE); LYMPHOCYTES # (AUTO) 1.6 10^3/uL (1.5-3.5); MEAN CORPUSCULAR HEMOGLOBIN 30.4 pg (27.0-31.0); MEAN CORPUSCULAR HGB CONC 34.9 g/dL (32.0-36.0); MEAN CORPUSCULAR VOLUME 87.1 fL (81.0-99.0); MEAN PLATELET VOLUME 9.8 fL (7.9-10.8); MONOCYTES # (AUTO) 0.6 10^3/uL (0.0-1.0); MONOCYTES % (AUTO) 8.2 %; NEUTROPHILS # (AUTO) 4.8 10^3/uL (1.5-6.6); NITRITE,URINE NEGATIVE (NEGATIVE); OCCULT BLOOD,URINE SMALL (NEGATIVE); PLT - PLATELET COUNT 247 10^3/uL (130-450); PROTEIN,URINE >=300 mg/dL (NEGATIVE); RED BLOOD COUNT 3.72 10^6/uL (4.20-5.40); RED CELL DISTRIBUTION WIDTH 13.2 % (12.0-15.0); UROBILINOGEN,URINE 0.2 (NORMAL) E.U./dL (NORMAL); WHITE BLOOD COUNT 7.2 x10^3/uL (4.8-10.8)
[2019-07-18 16:29] LABS: BACTERIA,URINE Few /HPF (None Seen); CLARITY,URINE CLEAR (CLEAR); SQUAMOUS EPITHELIAL CELL,UR MANY Squamous (<= Few)
[2019-07-18 16:32] LABS: ALBUMIN 3.2 g/dL (3.2-5.5); CALCIUM 8.8 mg/dL (8.5-10.3); CREATININE 2.2 mg/dL (0.4-1.0); PHOSPHORUS 4.4 mg/dL (2.5-4.6)
[2019-07-18 16:39] LABS: HEMOGLOBIN A1C 0.88 g/dL; HEMOGLOBIN A1C % 8.9 % (4.6-6.2)
[2019-07-18 16:55] LABS: CREATININE,URINE 63.6 mg/dL
[2019-07-19 10:29] LABS: HIV AG/AB 4TH GEN NON-REACTIVE (NON-REACTIVE)
[2019-07-20 10:34] LABS: COMPLEMENT COMPONENT C3C 167 mg/dL (83-193); COMPLEMENT COMPONENT C4C 39 mg/dL (15-57)
[2019-07-20 11:05] LABS: HEPATITIS A IGM NON-REACTIVE (NON-REACTIVE); HEPATITIS B SURFACE ANTIGEN NON-REACTIVE (NON-REACTIVE); HEPATITIS C ANTIBODY NON-REACTIVE (NON-REACTIVE)
[2019-07-20 12:19] LABS: ANA SCREEN NEGATIVE (NEGATIVE)
[2019-07-20 16:30] LABS: DNA (DS) ANTIBODY <1 IU/mL
== END 2019-07-18 15:39 | disposition home or self-care (01) ==
LOC: LAB 15:38
PROVIDERS: ATTEND Internal Medicine Nephrology
DX: E87.5 Hyperkalemia (principal); E11.22 Type 2 diabetes mellitus with diabetic chronic kidney disease; I12.9 Hypertensive chronic kidney disease with stage 1 through stage 4 chronic kidney disease, or unspecified chronic kidney disease; N18.9 Chronic kidney disease, unspecified; R80.9 Proteinuria, unspecified
CPT/HCPCS: 36415; 80069; 80074; 81001; 81599; 82306; 82570; 83036; 83520; 83970; 84156; 85025; 86038; 86160; 86225; 86255; 86334; 87086; 87389

== ENCOUNTER 2019-07-20 08:00 | Outpatient (CLI) | payer BC | END 2019-07-20 23:59 | disposition home or self-care (01) | LOC: LAB.R 08:00 | PROVIDERS: ATTEND Internal Medicine Nephrology | DX: R80.9 Proteinuria, unspecified (principal); E87.5 Hyperkalemia; E11.22 Type 2 diabetes mellitus with diabetic chronic kidney disease; I12.9 Hypertensive chronic kidney disease with stage 1 through stage 4 chronic kidney disease, or unspecified chronic kidney disease; N18.9 Chronic kidney disease, unspecified | CPT/HCPCS: 81599; 86335 ==

== ENCOUNTER 2019-08-13 06:05 | Emergency (ER) | payer BC ==
[2019-08-13 07:07] LABS: BASOPHILS # (AUTO) 0.1 10^3/uL (0.0-0.1); BASOPHILS % (AUTO) 0.8 %; EOSINOPHILS # (AUTO) 0.3 10^3/uL (0.0-0.7); HGB - HEMOGLOBIN 10.7 g/dL (12.0-16.0); LYMPHOCYTES # (AUTO) 1.5 10^3/uL (1.5-3.5); MEAN CORPUSCULAR HGB CONC 33.9 g/dL (32.0-36.0); MEAN CORPUSCULAR VOLUME 88.5 fL (81.0-99.0); MEAN PLATELET VOLUME 10.2 fL (7.9-10.8); MONOCYTES # (AUTO) 0.7 10^3/uL (0.0-1.0); MONOCYTES % (AUTO) 10.5 %; NEUTROPHILS # (AUTO) 3.8 10^3/uL (1.5-6.6); NEUTROPHILS % (AUTO) 60.4 %; PLT - PLATELET COUNT 204 10^3/uL (130-450); RED BLOOD COUNT 3.57 10^6/uL (4.20-5.40); WHITE BLOOD COUNT 6.2 x10^3/uL (4.8-10.8)
[2019-08-13 07:24] LABS: ALBUMIN 3.3 g/dL (3.2-5.5); BILIRUBIN,TOTAL 0.5 mg/dL (0.2-1.0); TOTAL PROTEIN 6.5 g/dL (6.7-8.2)
--- NOTE | 2019-08-13 07:38 | CT Report ---
PROCEDURE: HEAD WO INDICATIONS: dizziness, weakness TECHNIQUE: Noncontrast 4.5 mm thick angled axial sections acquired from the foramen magnum to the vertex. For r adiation dose reduction, the following was used: automated exposure control, adjustment of mA and/or kV according to patient size. COMPARISON: None. FINDINGS: Image quality: Excellent. CSF spaces: Basal cisterns are patent. No extra-axial fluid collections. Ventricles are normal in size and shape. Brain: No midline shift. Small 8 x 4 mm calcified extra-axial anterior right convexity extra-axial mass noted may represent small meningioma. No intracranial hemorrhage. There is mild, diffuse cerebra l volume loss. There are mild periventricular and subcortical white matter chronic microvascular isch emic changes. Sellers-white matter interface is normal. Skull and face: Calvarium and visualized facial bones are intact, without suspicious lesions. Sinuses: Visualized sinuses and mastoids are clear. IMPRESSION: No acute intracranial disease process. Reviewed by: Latrice Odell MD, PhD on 08/13/2019 7:36 AM PDT Approved by: Latrice Odell MD, PhD on 08/13/2019 7:36 AM PDT Station ID: [id number]
[2019-08-13] MEDS ORDERED: ONDANSETRON 4 MG/2 ML VIAL IVP STA (07:58)
[2019-08-13] MEDS ORDERED: MECLIZINE 12.5 MG TABLET PO STA (07:58)
[2019-08-13 08:01] LABS: BILIRUBIN,URINE NEGATIVE (NEGATIVE); GLUCOSE, URINE (UA) 250 mg/dL (NEGATIVE); KETONES,URINE (UA) NEGATIVE (NEGATIVE); LEUKOCYTE ESTERASE, URINE NEGATIVE (NEGATIVE); NITRITE,URINE NEGATIVE (NEGATIVE); OCCULT BLOOD,URINE TRACE-INTA (NEGATIVE); PH,URINE 6.5 PH (5.0-7.5); PROTEIN,URINE >=300 mg/dL (NEGATIVE); UROBILINOGEN,URINE 0.2 (NORMAL) E.U./dL (NORMAL)
[2019-08-13 08:15] LABS: CLARITY,URINE CLEAR (CLEAR)
[2019-08-13 08:30] LABS: BACTERIA,URINE Rare /HPF (None Seen); RBC,URINE 0-5 /HPF (0-5); SQUAMOUS EPITHELIAL CELL,UR RARE Squamous (<= Few)
[2019-08-13] MEDS ORDERED: SODIUM CHLORIDE 0.9% 250 ML IV ONE (09:13)
[2019-08-13 10:12] VITALS: BP 186/86
--- NOTE | 2019-08-13 10:13 | ED Physician Documentation ---
History of Present Illness - Stated complaint Stated Complaint: DIZZY/NAUSEA - Chief complaint Chief Complaint: Abd Pain - History obtained from History obtained from: Patient - Additonal information Additional information: Pt comes to the ED, c/o feeling "off" when she got up early this morning to go to the bathroom. She states it wasn't really a spinning feeling, and she did not have any focal deficits. She states she felt a little lightheaded, and "dizzy" in a way she can't quite explain. Pt denies any CP or SOB. No fevers or chills. Pt does note sinus congestion over the past week. No facial pain or headache. Pt states she got nauseated and vomited a couple of times. She states she still has some nausea, and feels the same "off" feeling when she stands up. No h/o vertigo. Review of Systems Ten Systems: 10 systems reviewed and negative Constitutional: reports: Reviewed and negative Eyes: reports: Reviewed and negative Ears: reports: Reviewed and negative Nose: reports: Reviewed and negative Throat: reports: Reviewed and negative Cardiac: reports: Reviewed and negative Respiratory: reports: Reviewed and negative GI: reports: Nausea, Vomiting : reports: Reviewed and negative Skin: reports: Reviewed and negative Musculoskeletal: reports: Reviewed and negative Neurologic: reports: Other (dizziness) Psychiatric: reports: Reviewed and negative Endocrine: reports: Reviewed and negative Immunocompromised: reports: Reviewed and negative PD PAST MEDICAL HISTORY - Past Medical History Past Medical History: Yes Cardiovascular: Hypertension, High cholesterol Respiratory: Shortness of breath Neuro: None Endocrine/Autoimmune: Type 2 diabetes GI: GERD : Kidney stones Psych: Depression Musculoskeletal: None Derm: None - Past Surgical History Past Surgical History: Yes 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 HEENT: Tonsil/Adenoidectomy - Present Medications Home Medications: Ambulatory Orders Medication Instructions Recorded Confirmed Escitalopram [Lexapro] 20 mg PO DAILY 04/20/19 08/13/19 Insulin Lispro [Humalog Kwikpen 0 - 20 unit SUBQ TIDWM 04/20/19 08/13/19 U-100] Insulin NPH Human Isophane 55 units SUBQ QPM 04/20/19 08/13/19 [Humulin N Kwikpen] Insulin NPH Human Isophane 80 unit SUBQ QDBREAKFAST 04/20/19 08/13/19 [Humulin N Kwikpen] Rosuvastatin Calcium 40 mg PO DAILY 04/20/19 08/13/19 Carvedilol 12.5 mg PO BID 08/13/19 08/13/19 Hydralazine HCl 50 mg PO TID 08/13/19 08/13/19 Lisinopril [Zestril] 40 mg PO DAILY 08/13/19 08/13/19 dilTIAZem HCl [Diltiazem 24Hr ER] 360 mg PO DAILY 08/13/19 08/13/19 hydroCHLOROthiazide 25 mg PO DAILY 08/13/19 08/13/19 [Hydrochlorothiazide] - Allergies Allergies/Adverse Reactions: Allergies Allergy/AdvReac Type Severity Reaction Status Date / Time amlodipine Allergy Itching Verified 08/13/19 06:43 morphine Allergy Rash Verified 08/13/19 06:43 prochlorperazine Allergy Unknown Verified 08/13/19 06:43 [From Compazine] liraglutide [From Victoza] AdvReac Emesis Verified 08/13/19 06:43 - Social History Does the pt smoke?: No Smoking Status: Never smoker Does the pt drink ETOH?: No Does the pt have substance abuse?: No - Immunizations Immunizations are current?: Yes - POLST Patient has POLST: No POLST Status: Full Code PD ED PE NORMAL - Vitals Vital signs reviewed: Yes - General General: Alert and oriented X 3, No acute distress, Well developed/nourished - HEENT HEENT: Atraumatic, PERRL, EOMI, Moist mucous membranes - Neck Neck: Supple, no meningeal sign - Cardiac Cardiac: RRR, No murmur, Strong equal pulses - Respiratory Respiratory: No respiratory distress, Clear bilaterally - Abdomen Abdomen: Soft, Non tender, Non distended - Derm Derm: Normal color, Warm and dry, No rash - Extremities Extremities: No deformity, No edema, No calf tenderness / cord - Neuro Neuro: Alert and oriented X 3, 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 No: T wave inversion Compare to prior EKG: Old EKG unavailable - Labs Labs: Laboratory Tests 08/13/19 08/13/19 08/13/19 06:35 06:35 07:48 WBC 6.2 RBC 3.57 L Hgb 10.7 L Hct 31.6 L MCV 88.5 MCH 30.0 MCHC 33.9 RDW 13.0 Plt Count 204 MPV 10.2 Neut # (Auto) 3.8 Lymph # (Auto) 1.5 [place] # (Auto) 0.7 Eos # (Auto) 0.3 Baso # (Auto) 0.1 Absolute Nucleated RBC 0.00 Nucleated RBC % 0.0 Sodium 136 Potassium 3.5 Chloride 105 Carbon Dioxide 22 Anion Gap 9.0 BUN 43 H Creatinine 2.0 H Estimated GFR (MDRD) 26 L Glucose 119 H Calcium 9.0 Total Bilirubin 0.5 AST 21 ALT 20 Alkaline Phosphatase 69 Total Protein 6.5 L Albumin 3.3 Globulin 3.2 Albumin/Globulin Ratio 1.0 Lipase 71 H Urine Color LIGHT YELLOW Urine Clarity CLEAR Urine pH 6.5 Ur Specific [place] 1.025 Urine Protein >=300 H Urine Glucose (UA) 250 H Urine Ketones NEGATIVE Urine Occult Blood TRACE-INTA Urine Nitrite NEGATIVE Urine Bilirubin NEGATIVE Urine Urobilinogen 0.2 (NORMAL) Ur Leukocyte Esterase NEGATIVE Urine RBC 0-5 Urine WBC 0-3 Ur Squamous Epith Cells RARE Squamous Urine Bacteria Rare Ur Microscopic Review INDICATED Urine Culture Comments NOT INDICATED - Rads (name of study) CT head Radiology: Prelim report reviewed, Final report received, EMP read indepedently, See rad report (NAD) PD MEDICAL DECISION MAKING - ED course Complexity details: reviewed results, re-evaluated patient, considered differential, d/w patient ED course: Pt was initially evaluated by night physician, and signed out to me at change of shift, pending work-up. Pt's labs showed mild elevation of BUN and CR, as well as a slight lipase elevation without elevated bili. The pt had no abdominal pain, however, and nausea was controlled with symptomatic treatment in the ED. Head CT was unremarkable. Pt was given IV fluids, Zofran and meclizine, after which she reported minimal relief of the dizziness. I d/w her that I do not find evidence of an emergent condition today. We have discussed home management of the sx, as well as the usual indications for return. The pt is instructed to follow up with her PCP for a recheck if not feeling better in the next several days. Departure - Departure Disposition: 01 Home, Self Care Clinical Impression: Vertigo Vomiting Qualifiers: Vomiting type: bilious vomiting Nausea presence: with nausea Qualified Code(s): R11.14 - Bilious vomiting Condition: Stable Instructions: ED Dizziness UKO Comments: Extensive work-up today, including labs and CT scan of the head, does not show any concerning cause of your symptoms. The symptoms may be due to atypical vertigo, or may be due to your sinus congestion, which can sometimes cause a feeling of being "off balance". Your neurologic exam is normal and you have b een able to walk unassisted in the emergency department. Please follow-up with your primary care physician if you are not feeling better in the next few days. Discharge Date/Time: 08/13/19 10:38
== END 2019-08-13 10:38 | disposition home or self-care (01) ==
LOC: ED 06:05
DX: R42 Dizziness and giddiness (principal); R11.14 Bilious vomiting; I10 Essential (primary) hypertension; E11.9 Type 2 diabetes mellitus without complications; Z79.4 Long term (current) use of insulin
CPT/HCPCS: 36415; 70450; 80053; 81001; 83690; 85025; 93005; 96361; 96374; 99284; A9270; 81003; 87086

== ENCOUNTER 2019-08-23 07:37 | Outpatient (CLI) | payer BC ==
[2019-08-23 08:30] LABS: BASOPHILS % (AUTO) 0.7 %; EOSINOPHILS # (AUTO) 0.1 10^3/uL (0.0-0.7); EOSINOPHILS % (AUTO) 2.5 %; HGB - HEMOGLOBIN 10.2 g/dL (12.0-16.0); LYMPHOCYTES # (AUTO) 0.9 10^3/uL (1.5-3.5); LYMPHOCYTES % (AUTO) 20.8 %; MEAN CORPUSCULAR HEMOGLOBIN 30.7 pg (27.0-31.0); MEAN CORPUSCULAR HGB CONC 34.1 g/dL (32.0-36.0); MEAN CORPUSCULAR VOLUME 90.1 fL (81.0-99.0); MEAN PLATELET VOLUME 9.6 fL (7.9-10.8); MONOCYTES # (AUTO) 0.5 10^3/uL (0.0-1.0); MONOCYTES % (AUTO) 10.3 %; NEUTROPHILS # (AUTO) 2.9 10^3/uL (1.5-6.6); NEUTROPHILS % (AUTO) 65.2 %; PLT - PLATELET COUNT 178 10^3/uL (130-450); RED BLOOD COUNT 3.32 10^6/uL (4.20-5.40); RED CELL DISTRIBUTION WIDTH 12.4 % (12.0-15.0); WHITE BLOOD COUNT 4.4 x10^3/uL (4.8-10.8)
[2019-08-23 08:42] LABS: ALBUMIN 3.8 g/dL (3.2-5.5); CALCIUM 9.3 mg/dL (8.5-10.3); CREATININE 2.6 mg/dL (0.4-1.0); PHOSPHORUS 5.3 mg/dL (2.5-4.6)
[2019-08-23 08:44] LABS: HB2 TOTAL 10.9 g/dL; HEMOGLOBIN A1C 0.6 g/dL; HEMOGLOBIN A1C % 7.2 % (4.6-6.2)
[2019-08-23 09:27] LABS: CREATININE,URINE 44.1 mg/dL; MICROALBUM/CREATININE RATIO,UR 5113.4 ug/mg (<30.0); MICROALBUMIN,URINE 225.5 mg/dL (0-300.0)
== END 2019-08-23 07:38 | disposition home or self-care (01) ==
LOC: LAB 07:37
PROVIDERS: ATTEND Internal Medicine
DX: K92.1 Melena (principal); N18.9 Chronic kidney disease, unspecified; E11.22 Type 2 diabetes mellitus with diabetic chronic kidney disease
CPT/HCPCS: 36415; 80069; 82043; 82570; 83036; 85025

== ENCOUNTER 2019-09-18 15:30 | Outpatient (CLI) | payer BC ==
--- NOTE | 2019-09-19 22:16 | SLEEP CARE CONSULTATION ---
Information from patient questionnaire entered by Crystal Riggs. I have reviewed and concur with the information entered by Crystal Riggs. This document represents the service I personally performed and the decisions made by me, Maurizio Beltran MD, [facility]. History of Present Illness Service Date and Time: 09/18/2019 1530 Reason for Visit: New patient, Previously diagnosed sleep apnea, sleep apnea on CPAP therapy, Other (to check my CPAP) Usual bedtime: 10 pm Time it takes to fall asleep: 5 minutes Snores at night: No (not usually) Observed to quit breathing while asleep: Yes Sleeps alone due to snoring: No Number of times waking at night: 1 Reasons for waking at night: reports: Bathroom Toss, Turn, or Twitch while sleeping: Yes Recalls having dreams: Yes Usually gets out of bed at: 6:30 am Feels refreshed in the morning: Yes (sometimes) Morning headache: No Sleepy or fatigued during the day: Yes Ever fallen asleep while driving: No Takes day naps: Yes (sometimes) Dreams during day naps: No Prior sleep studies: Yes Year and Where: 2017 - [facility] in [place], [place] ; [address] [place] [address] in [place] Additional HPI information: I had the pleasure of seeing Ms. Reyna today regarding obstructive sleep apnea-hypopnea. As you know, she is a 54 year old lady who was diagnosed with the sleep-disordered breathing in [place], [place] in 1999 and again at [facility] in [place] in 2017. None of the records is available. She recalls the AHI to be around 45. She was prescribed a CPAP device set at 7 12 cmH2O. She uses every night and all night. The compliance data from 02/03/19 03/04/19 show usage in 30 out of the past 30 nights, averaging 9.5 hours a night. The residual AHI is 1.7 and average air leak is 2.4 L/minute. She wears a nasal mask. She got her current ResMed AirSense 10 from [employer] but no supplies afterward. She finds the treatment very beneficial. 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 Patient is and lives in [place]. Allergies and Home Medications Drug allergies reviewed: Yes Home medication list reviewed: Yes Review of Systems Weight gain over past 5 years: 20 Cardiovascular: reports: high blood pressure, leg or foot swelling Respiratory: reports: shortness of breath Gastrointestinal: denies: heartburn, difficulty swallowing, nausea, vomitting, diarrhea, abdominal pain, other Urinary: denies: incontinence, frequency, urgency, impotence, other Neurological: denies: headaches, seizure, head trauma, disorientation, speech dysfunction, gait or balance problems, fainting or unconsciousness, other Psychiatric: reports: depression Ear/Nose/Throat: reports: nasal congestion, dry mouth/throat, tonsillectomy Endocrine: denies: thyroid disease, history of goiter, sluggishness, too hot or cold, excessive thirst, increased appetite, increased urination, unexplained weakness, other Musculoskeletal: reports: joint pain Physical Exam Vital signs obtained and entered by: Detailed physical exam is deferred because the Coronavirus epidemic. Height: 5 ft 3 in Weight: 251 lb Body Mass Index: 44.4 BMI Classification: Morbidly Obese Impression and Plan IMPRESSION: 1. Obstructive Sleep Apnea-Hypopnea Syndrome, probably severe, as previously diagnosed. The patient has had good treatment compliance. The current pressure setting appears effective and comfortable. The patient experiences improvement on the treatment. Narrow oropharynx and obesity are common predisposing factors for obstructive sleep apnea-hypopnea syndrome. No adjustment is necessary today. A new prescription will be issued so that she may get new supplies from [employer]. Plan: 1. Prescription made for supplies. 2. Try newer masks and nasal pillows. 3. Try to lose weight. 4. Return for follow up in a year or earlier if there is any problem. Visit Type: In Office Time Spent with Patient (minutes): 15 Provider Statement: I spent 100% of the Face to Face Visit with the patient with greater than 50% spent counseling the patient and coordination of care.
== END 2019-09-18 15:31 | disposition home or self-care (01) ==
LOC: SC 15:30
PROVIDERS: ATTEND Internal Medicine Pulmonary Disease
DX: G47.33 Obstructive sleep apnea (adult) (pediatric) (principal); E66.01 Morbid (severe) obesity due to excess calories; Z68.41 Body mass index [BMI] 40.0-44.9, adult
CPT/HCPCS: 99203; 99212

== ENCOUNTER 2019-10-26 07:14 | Outpatient (CLI) | payer BC ==
[2019-10-26 07:36] LABS: ALBUMIN 3.4 g/dL (3.2-5.5); CREATININE 2.7 mg/dL (0.4-1.0); PHOSPHORUS 5.1 mg/dL (2.5-4.6)
[2019-10-26 09:00] LABS: CREATININE,URINE 61.8 mg/dL; MICROALBUM/CREATININE RATIO,UR 3648.9 ug/mg (<30.0); MICROALBUMIN,URINE 225.5 mg/dL (0-300.0)
[2019-10-26 12:37] LABS: HEMOGLOBIN A1c% 7.7 % (4.27-6.07)
== END 2019-10-26 07:15 | disposition home or self-care (01) ==
LOC: LAB 07:14
PROVIDERS: ATTEND Internal Medicine
DX: G47.30 Sleep apnea, unspecified (principal); M25.531 Pain in right wrist
CPT/HCPCS: 36415; 80069; 82043; 82570; 83036

== ENCOUNTER 2019-12-17 07:17 | Outpatient (CLI) | payer BC | END 2019-12-17 07:18 | disposition home or self-care (01) | LOC: LAB 07:17 | PROVIDERS: ATTEND Internal Medicine | DX: Z11.59 Encounter for screening for other viral diseases (principal); Z20.828 Contact with and (suspected) exposure to other viral communicable diseases ==

== ENCOUNTER 2020-01-15 07:25 | Outpatient (CLI) | payer BC ==
[2020-01-15 08:10] LABS: ALBUMIN 2.9 g/dL (3.2-5.5); BUN - BLOOD UREA NITROGEN 35 mg/dL (6-20); CALCIUM 8.9 mg/dL (8.5-10.3); CARBON DIOXIDE - CO2 27 mmol/L (21-32); CHLORIDE 102 mmol/L (101-111); CHOL/HDL RATIO 4.5 (<4.4); CHOLESTEROL 177 mg/dL; CREATININE 2.8 mg/dL (0.4-1.0); GLUCOSE 201 mg/dL (70-100); HDL CHOLESTEROL 39 mg/dL; LDL CHOLESTEROL,CALCULATED 81 mg/dL; LDL/HDL RATIO 2.1 (<4.4); PHOSPHORUS 4.8 mg/dL (2.5-4.6); SODIUM 141 mmol/L (135-145); VLDL CHOLESTEROL 57 mg/dL
[2020-01-15 11:20] LABS: MICROALBUM/CREATININE RATIO,UR 7876.8 ug/mg (<30.0); MICROALBUMIN,URINE 543.5 mg/dL (0-300.0)
[2020-01-15 13:55] LABS: HEMOGLOBIN A1c% 6.8 % (4.27-6.07)
[2020-01-16 12:07] LABS: HEPATITIS C ANTIBODY NON-REACTIVE (NON-REACTIVE)
== END 2020-01-15 07:26 | disposition home or self-care (01) ==
LOC: LAB 07:25
PROVIDERS: ATTEND Internal Medicine
DX: E78.5 Hyperlipidemia, unspecified (principal); E11.22 Type 2 diabetes mellitus with diabetic chronic kidney disease; I12.9 Hypertensive chronic kidney disease with stage 1 through stage 4 chronic kidney disease, or unspecified chronic kidney disease; N18.9 Chronic kidney disease, unspecified; G47.30 Sleep apnea, unspecified; K63.5 Polyp of colon; F41.8 Other specified anxiety disorders
CPT/HCPCS: 36415; 80061; 80069; 82043; 82570; 83036; 83721; 86803

== ENCOUNTER 2020-02-05 07:33 | Outpatient (CLI) | payer BC ==
[2020-02-05 08:05] LABS: ALBUMIN 3.2 g/dL (3.2-5.5); CALCIUM 9.1 mg/dL (8.5-10.3); CREATININE 3.2 mg/dL (0.4-1.0); PHOSPHORUS 4.8 mg/dL (2.5-4.6)
== END 2020-02-05 07:34 | disposition home or self-care (01) ==
LOC: LAB 07:33
PROVIDERS: ATTEND Internal Medicine Nephrology
DX: E87.6 Hypokalemia (principal); N18.5 Chronic kidney disease, stage 5
CPT/HCPCS: 36415; 80069

== ENCOUNTER 2020-02-12 08:40 | Observation (INO) | payer BC ==
[2020-02-12] MEDS ORDERED: ALBUTEROL NEB 2.5 MG/3 ML INH STA (09:24)
[2020-02-12] MEDS ORDERED: CALCIUM GLUCONATE 1,000 MG in SODIUM CHLORIDE 0.9% 50 ML IV STA ×2 (09:25→10:43)
[2020-02-12] MEDS ORDERED: SODIUM CHLORIDE 0.9% 1,000 ML IV STA ×2 (09:26→13:12)
[2020-02-12] MEDS ORDERED: INSULIN REGULAR HUMAN 100 UNIT/1 ML 10 ML MDV IVP STA ×2 (09:46→11:03)
[2020-02-12 09:52] LABS: BASOPHILS # (AUTO) 0.1 10^3/uL (0.0-0.1); BASOPHILS % (AUTO) 0.6 %; EOSINOPHILS # (AUTO) 0.3 10^3/uL (0.0-0.7); EOSINOPHILS % (AUTO) 3.3 %; HCT - HEMATOCRIT 31.3 % (37.0-47.0); HGB - HEMOGLOBIN 10.4 g/dL (12.0-16.0); LYMPHOCYTES # (AUTO) 1.4 10^3/uL (1.5-3.5); LYMPHOCYTES % (AUTO) 15.2 %; MEAN CORPUSCULAR HEMOGLOBIN 29.2 pg (27.0-31.0); MEAN CORPUSCULAR HGB CONC 33.2 g/dL (32.0-36.0); MEAN CORPUSCULAR VOLUME 87.9 fL (81.0-99.0); MONOCYTES # (AUTO) 0.7 10^3/uL (0.0-1.0); MONOCYTES % (AUTO) 7.3 %; NEUTROPHILS # (AUTO) 6.7 10^3/uL (1.5-6.6); NEUTROPHILS % (AUTO) 73.3 %; PLT - PLATELET COUNT 186 10^3/uL (130-450); RED BLOOD COUNT 3.56 10^6/uL (4.20-5.40); RED CELL DISTRIBUTION WIDTH 12.5 % (12.0-15.0); WHITE BLOOD COUNT 9.1 x10^3/uL (4.8-10.8)
[2020-02-12] MEDS ORDERED: GLUCAGON 1 MG/ML VIAL IVP STA (10:00)
--- NOTE | 2020-02-12 10:07 | ED Physician Documentation ---
PD HPI SYNCOPE - Stated complaint Stated Complaint: WEAKNESS - Chief complaint Chief Complaint: General - History obtained from History obtained from: Patient - History of Present Illness Witnessed: Unwitnessed Timing - onset: Today Duration: Other (She states she felt okay yesterday and first getting up this morning had a feeling of general weakness that worsened considerably just on route to work. By the time she got there she felt she could not walk in from her car into the building which is quite unusual for her. No chest pain.) Preceding symptoms: Light headed (Feeling of lightheaded and general weakness without any syncope.), Generalized weakness. No: Chest pain, Abdominal pain, Nausea / vomiting Associated symptoms: No: Headache, Chest pain, Nausea / vomiting, Abdominal pain Contributing factors: No: Recent med change, Decreased PO intake Injury occurred: No: Head injury, Neck injury Similar symptoms before: Diagnosis (she states she had similar feeling with high potassium this past spring.) Review of Systems Constitutional: denies: Fever, Chills Nose: denies: Rhinorrhea / runny nose, Congestion Throat: denies: Sore throat Cardiac: reports: Pedal edema (mild chronic). denies: Chest pain / pressure, Palpitations, Calf pain Respiratory: denies: Cough GI: denies: Abdominal Pain, Nausea, Vomiting, Diarrhea, Bloody / black stool Skin: denies: Rash, Lesions Neurologic: reports: Generalized weakness, Near syncope. denies: Focal weakness, Syncope, Altered mental status, Head injury Psychiatric: denies: Depressed Endocrine: denies: Easy bruising / bleeding Immunocompromised: denies: Immunocompromised PD PAST MEDICAL HISTORY - Past Medical History Cardiovascular: Hypertension, High cholesterol Respiratory: Shortness of breath Neuro: None Endocrine/Autoimmune: Type 2 diabetes GI: GERD : Renal insuffiency (getting port later this week in prep for dialysis in near future. ), Kidney stones Psych: Depression Musculoskeletal: None Derm: None - Past Surgical History Past Surgical History: Yes General: Cholecystectomy /STOCK PATCHER: Oophrectomy HEENT: Tonsil/Adenoidectomy - Present Medications Home Medications: Ambulatory Orders Medication Instructions Recorded Confirmed Escitalopram [Lexapro] 20 mg PO DAILY 04/20/19 02/12/20 Insulin Lispro [Humalog Kwikpen 0 - 20 unit SUBQ TIDWM 04/20/19 02/12/20 U-100] Insulin NPH Human Isophane 55 units SUBQ QPM 04/20/19 02/12/20 [Humulin N Kwikpen] Insulin NPH Human Isophane 80 unit SUBQ QDBREAKFAST 04/20/19 02/12/20 [Humulin N Kwikpen] Rosuvastatin Calcium 10 mg PO DAILY 04/20/19 02/12/20 Carvedilol 12.5 mg PO BID 08/13/19 02/12/20 Hydralazine HCl 100 mg PO TID 08/13/19 02/12/20 dilTIAZem HCl [Diltiazem 24Hr ER] 360 mg PO DAILY 08/13/19 02/12/20 Potassium Chloride [K-Dur] 40 meq PO DAILY 02/12/20 02/12/20 Torsemide 40 mg PO TID 02/12/20 02/12/20 cloNIDine [Catapres] 0.2 mg PO TID 02/12/20 02/12/20 hydrALAZINE [Apresoline] 100 mg PO TID 02/12/20 02/12/20 - Allergies Allergies/Adverse Reactions: Allergies Allergy/AdvReac Type Severity Reaction Status Date / Time amlodipine Allergy Itching Verified 02/12/20 08:55 morphine Allergy Rash Verified 02/12/20 08:55 prochlorperazine Allergy Unknown Verified 02/12/20 08:55 [From Compazine] liraglutide [From Victoza] AdvReac Emesis Verified 02/12/20 08:55 - Social History Does the pt smoke?: No Smoking Status: Never smoker Does the pt drink ETOH?: No Does the pt have substance abuse?: No - Immunizations Immunizations are current?: Yes - POLST Patient has POLST: No POLST Status: Full Code PD ED PE NORMAL - Vitals Vital signs reviewed: Yes - General General: Alert and oriented X 3, Well developed/nourished, Other (appears pale, but alert and conversant.) - HEENT HEENT: Pharynx benign - Neck Neck: Supple, no meningeal sign, No adenopathy - Cardiac Cardiac: No: RRR (bradycardic; no murmur) - Respiratory Respiratory: Clear bilaterally - Abdomen Abdomen: Soft, Non tender, Other (obese) - Female Female : Deferred - Rectal Rectal: Deferred - Back Back: No CVA TTP - Derm Derm: Warm and dry. No: Normal color (mildly pale) - Extremities Extremities: No tenderness to palpate, Normal ROM s pain, No calf tenderness / cord, Other (1+ edema in both ankles.) - Neuro Neuro: Alert and oriented X 3, No motor deficit, No sensory deficit, Normal speech Eye Opening: Spontaneous Motor: Obeys Commands Verbal: Oriented GCS Score: 15 - Psych Psych: Normal mood Results - Vitals Vitals: Vital Signs - 24 hr 02/12/20 02/12/20 02/12/20 08:45 09:23 09:45 Temperature 36.4 C L Heart Rate 76 35 L 36 L Respiratory 18 12 15 Rate Blood Pressure 110/60 121/56 L O2 Saturation 95 100 02/12/20 02/12/20 02/12/20 09:59 10:29 10:30 Temperature Heart Rate 41 L 38 L 38 L Respiratory 13 16 16 Rate Blood Pressure 123/61 135/67 H 151/74 H O2 Saturation 99 96 96 02/12/20 11:00 Temperature Heart Rate 40 L Respiratory 18 Rate Blood Pressure 163/66 H O2 Saturation 97 Oxygen O2 Source Room air - EKG (time done) 09:14 Rate: Rate (enter#) (39) Rhythm: Sinus bradycardia [place]: Normal Intervals: Normal AR QRS: Normal Ischemia: Normal ST segments, ST elevation c/w ischemia (lead III only), Non specific changes - Labs Labs: Laboratory Tests 02/12/20 02/12/20 02/12/20 09:21 09:49 09:49 WBC 9.1 RBC 3.56 L Hgb 10.4 L Hct 31.3 L MCV 87.9 MCH 29.2 MCHC 33.2 RDW 12.5 Plt Count 186 MPV 10.0 Neut # (Auto) 6.7 H Lymph # (Auto) 1.4 L [place] # (Auto) 0.7 Eos # (Auto) 0.3 Baso # (Auto) 0.1 Absolute Nucleated RBC 0.00 Nucleated RBC % 0.0 Sodium 136 Potassium 4.7 Chloride 104 Carbon Dioxide 22 Anion Gap 10.0 BUN 53 H Creatinine 3.6 H Estimated GFR (MDRD) 13 L Glucose 292 H POC Whole Bld Glucose 291 H Calcium 9.4 Magnesium 2.1 Total Bilirubin 0.2 AST 16 ALT 18 Alkaline Phosphatase 102 Troponin I High Sens B-Natriuretic Peptide Total Protein 6.7 Albumin 3.5 Globulin 3.2 Albumin/Globulin Ratio 1.1 Lipase 86 H Nasal Adenovirus (PCR) Nasal B. parapertussis DNA (PCR) Nasal Coronavir 229E PCR Nasal Coronavir HKU1 PCR Nasal Coronavir NL63 PCR Nasal Coronavir OC43 PCR Nasal Enterovir/Rhinovir PCR Nasal Influenza B PCR Nasal Influenza A PCR Nasal Parainfluen 1 PCR Nasal Parainfluen 2 PCR Nasal Parainfluen 3 PCR Nasal Parainfluen 4 PCR Nasal RSV (PCR) Nasal B.pertussis DNA PCR Nasal C.pneumoniae (PCR) Abraham Human Metapneumo PCR Nasal M.pneumoniae (PCR) Nasal SARS-CoV-2 (PCR) 02/12/20 02/12/20 02/12/20 09:49 09:49 09:58 WBC RBC Hgb Hct MCV MCH MCHC RDW Plt Count MPV Neut # (Auto) Lymph # (Auto) [place] # (Auto) Eos # (Auto) Baso # (Auto) Absolute Nucleated RBC Nucleated RBC % Sodium Potassium Chloride Carbon Dioxide Anion Gap BUN Creatinine Estimated GFR (MDRD) Glucose POC Whole Bld Glucose Calcium Magnesium Total Bilirubin AST ALT Alkaline Phosphatase Troponin I High Sens 4.1 B-Natriuretic Peptide 63 Total Protein Albumin Globulin Albumin/Globulin Ratio Lipase Nasal Adenovirus (PCR) NOT DETECTED Nasal B. parapertussis DNA (PCR) NOT DETECTED Nasal Coronavir 229E PCR NOT DETECTED Nasal Coronavir HKU1 PCR NOT DETECTED Nasal Coronavir NL63 PCR NOT DETECTED Nasal Coronavir OC43 PCR NOT DETECTED Nasal Enterovir/Rhinovir PCR NOT DETECTED Nasal Influenza B PCR NOT DETECTED Nasal Influenza A PCR NOT DETECTED Nasal Parainfluen 1 PCR NOT DETECTED Nasal Parainfluen 2 PCR NOT DETECTED Nasal Parainfluen 3 PCR NOT DETECTED Nasal Parainfluen 4 PCR NOT DETECTED Nasal RSV (PCR) NOT DETECTED Nasal B.pertussis DNA PCR NOT DETECTED Nasal C.pneumoniae (PCR) NOT DETECTED Abraham Human Metapneumo PCR NOT DETECTED Nasal M.pneumoniae (PCR) NOT DETECTED Nasal SARS-CoV-2 (PCR) NOT DETECTED 02/12/20 11:02 WBC RBC Hgb Hct MCV MCH MCHC RDW Plt Count MPV Neut # (Auto) Lymph # (Auto) [place] # (Auto) Eos # (Auto) Baso # (Auto) Absolute Nucleated RBC Nucleated RBC % Sodium Potassium Chloride Carbon Dioxide Anion Gap BUN Creatinine Estimated GFR (MDRD) Glucose POC Whole Bld Glucose 315 H Calcium Magnesium Total Bilirubin AST ALT Alkaline Phosphatase Troponin I High Sens B-Natriuretic Peptide Total Protein Albumin Globulin Albumin/Globulin Ratio Lipase Nasal Adenovirus (PCR) Nasal B. parapertussis DNA (PCR) Nasal Coronavir 229E PCR Nasal Coronavir HKU1 PCR Nasal Coronavir NL63 PCR Nasal Coronavir OC43 PCR Nasal Enterovir/Rhinovir PCR Nasal Influenza B PCR Nasal Influenza A PCR Nasal Parainfluen 1 PCR Nasal Parainfluen 2 PCR Nasal Parainfluen 3 PCR Nasal Parainfluen 4 PCR Nasal RSV (PCR) Nasal B.pertussis DNA PCR Nasal C.pneumoniae (PCR) Abraham Human Metapneumo PCR Nasal M.pneumoniae (PCR) Nasal SARS-CoV-2 (PCR) - Rads (name of study) chest Radiology: Prelim report reviewed (No acute infiltrates nor signs of CHF.), See rad report PD MEDICAL DECISION MAKING - ED course Complexity details: reviewed results (The EKG did not show any pattern and ST elevation. There were nonspecific changes possibly consistent with electrolyte abnormality or ischemia. The initial potassium was normal. Initial troponin is normal as well.), re-evaluated patient (The patient had an improvement in blood pressure and some mild improvement in heart rate as well in response to insulin glucagon and calcium. This would be also suggestive for calcium channel temo adverse effect. She is stable with improving heart rate/ blood pressure though still bradycardic.), considered differential (Initial concern was for electrolyte disorder such as hyperkalemia but also concern for medication adverse effect with calcium and beta blockers. The elevated blood sugar would be more suggestive of calcium temo. Also consider acute MT.), d/w patient - Critical Care Time(min): 30 Time Includes: Direct patient care, Reassess patient, Document care, Coordinate care, Medical consult Data interpretation: Labs, Pulse ox, CXR Procedures excluded from critical care time: EKG Departure - Departure Disposition: ED Place in Observation Clinical Impression: General weakness, Sinus bradycardia Calcium channel temo adverse reaction Qualifiers: Encounter type: initial encounter Qualified Code(s): T46.1X5A - Adverse effect of calcium-channel blockers, initial encounter Condition: Stable Record reviewed to determine appropriate education?: Yes
[2020-02-12 10:08] LABS: ALBUMIN 3.5 g/dL (3.2-5.5); ALBUMIN/GLOBULIN RATIO 1.1 (1.0-2.2); BILIRUBIN,TOTAL 0.2 mg/dL (0.2-1.0); CALCIUM 9.4 mg/dL (8.5-10.3); CREATININE 3.6 mg/dL (0.4-1.0); MAGNESIUM 2.1 mg/dL (1.7-2.8); POTASSIUM 4.7 mmol/L (3.5-5.0); TOTAL PROTEIN 6.7 g/dL (6.7-8.2)
--- NOTE | 2020-02-12 10:29 | XRAY Report ---
PROCEDURE: Chest 1 View X-Ray INDICATIONS: Chest Pain TECHNIQUE: One view of the chest was acquired. COMPARISON: None. FINDINGS: Surgical changes and devices: None. Lungs and pleura: No pleural effusions or pneumothorax. Lungs are clear. Mediastinum: Mediastinal contours appear normal. Heart size is normal. Bones and chest wall: No suspicious bony lesions. Overlying soft tissues appear unremarkable. IMPRESSION: No acute cardiopulmonary disease. Reviewed by: Linden Raymond MD on 02/12/2020 10:[address] [facility] Approved by: Linden Raymond MD on 02/12/2020 10:[address] [facility] Station ID: [id number]
[2020-02-12] MEDS ORDERED: METOCLOPRAMIDE 10 MG/2 ML VIAL IVP STA (10:32)
[2020-02-12] MEDS ORDERED: SODIUM CHLORIDE 0.9% 500 ML IV STA (10:58)
[2020-02-12 10:59] LABS: B. PARAPERTUSSIS- RESP PCR PAN NOT DETECTED; B. PERTUSSIS- RESP PCR PANEL NOT DETECTED; C. PNEUMONIAE- RESP PCR PANEL NOT DETECTED; CORONAVIRUS 229E-RESP PCR NOT DETECTED; CORONAVIRUS HKU1-RESP PCR NOT DETECTED; CORONAVIRUS NL63-RESP PCR NOT DETECTED; CORONAVIRUS OC43-RESP PCR NOT DETECTED; HUMAN METAPNEUMOVIRUS NOT DETECTED; INFLUENZA A- RESP PCR PANEL NOT DETECTED; INFLUENZA B - RESP PCR PANEL NOT DETECTED; M. PNEUMONIAE- RESP PCR PANEL NOT DETECTED; PARAINFLUENZA VIRUS 1 NOT DETECTED; PARAINFLUENZA VIRUS 2 NOT DETECTED; PARAINFLUENZA VIRUS 3 NOT DETECTED; PARAINFLUENZA VIRUS 4 NOT DETECTED; RHINOVIRUS/ENTEROVIRUS NOT DETECTED; RSV- RESP PCR PANEL NOT DETECTED; SARS-CoV-2 -RESP PCR PANEL NOT DETECTED
[2020-02-12] MEDS ORDERED: SODIUM CHLORIDE FLUSH 0.9% 10 ML SYRINGE IVP PRN (11:13)
[2020-02-12] MEDS ORDERED: ONDANSETRON 4 MG/2 ML VIAL IVP PRN (11:13)
--- NOTE | 2020-02-12 13:31 | CONSULTATION NOTE ---
Consultation Report: Called for difficult IV placement. #20G left IJ placed after multiple attempts. Patient tolerated well.
[2020-02-12] MEDS: SODIUM CHLORIDE FLUSH 0.9% 10 ML SYRINGE IVP SCH (15:52)
--- NOTE | 2020-02-12 17:30 | HISTORY & PHYSICAL EXAMINATION ---
DATE OF SERVICE: 02/12/2020 Physician: Kaelyn Davis MD HISTORY OF PRESENT ILLNESS: This is a 54-year-old white female with a history of diabetes, hypertension, chronic kidney disease who is followed by a highway maintainer and is preparing to have a port placed for peritoneal dialysis later this week. She has a history of prior kidney stones several times, cholecystectomy, and ovary removed due to a large cyst. She had a hospitalization here several months ago for hyperkalemia with symptoms of marked fatigue. At that time, she was on an JULIEN inhibitor, spironolactone, and potassium replacement. Many of her medicines were at that time changed. Today, the patient was feeling weak when she tried to get up and described lightheadedness. This happened twice, and she was brought to the emergency room where she was found to have a heart rate in the 30s to 40s. Blood pressure was stable but "soft" at 110 systolic. The creatinine, which is usually 3.2, has worsened at 3.6. It was presumed that she had a high potassium level again and she has already received insulin, D50, albuterol and calcium gluconate and heart rate has increased to 50. Potassium came back normal however. She is being placed in Observation for management of the bradycardia, which is probably related to being on her 3 blood pressure medications, all of which slow heart rate. She has already been applied with external pacing patches, to use if emergently necessary. PAST MEDICAL HISTORY: Diabetes mellitus, hypertension, CKD, prior kidney stones several times, obesity, anxiety, elevated cholesterol. ALLERGIES: AMLODIPINE, MORPHINE, PROCHLORPERAZINE, AND LIRAGLUTIDE. MEDICATIONS: 1. Coreg 25 mg p.o. b.i.d. 2. Clonidine 0.2 mg p.o. t.i.d. 3. Diltiazem CD 360 mg daily. 4. Lexapro 20 mg daily. 5. Hydralazine 100 mg t.i.d. 6. NPH insulin 80 units in the morning and 55 units in the evening. 7. Potassium chloride 40 mEq b.i.d. 8. Crestor 10 mg daily. 9. Torsemide 40 mg t.i.d. REVIEW OF SYSTEMS: The patient states that in 1 month while being on torsemide she has been able to lose 23 pounds, all of which was water weight, and she had edema up to her hips, which has now decreased down to just her feet. 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 She is followed by a highway maintainer. She is active, has a full-time job. She denies any dyspnea, prior syncope or symptoms like this, palpitations. A comprehensive review of systems was performed, and the pertinent positives are listed. The rest are negative. FAMILY HISTORY: Not contributory. SOCIAL HISTORY: The patient lives with her and 2 grown children. 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 The patient is a nonsmoker who never smoked, drinks very rare alcohol. No illicit drug use history. PHYSICAL EXAM: GENERAL: Obese white female. She appears weak and pale. She is supine in bed, in no distress. VITAL SIGNS: Blood pressure 133/69, pulse 47 to 51 in sinus rhythm, afebrile, room air saturation 99%. HEENT: Shows moist oral mucosa, but her skin is pale. NECK: No JVD. No carotid bruits. CHEST: Clear. HEART: Normal heart sounds. No murmurs. ABDOMEN: Obese with a pannus. No tenderness. Normal bowel sounds. EXTREMITIES: One plus edema to below the knees bilaterally. No clubbing or cyanosis. NEUROLOGIC: Grossly intact. LABORATORY DATA: Sodium 136, potassium 4.7, BUN 53, creatinine 3.6 (baseline creatinine is now 3.2), glucose 315, magnesium 2.1. Normal liver tests. Troponin 4.1 and the repeat is 6.2. BNP 63. Lipase 86. White blood count 9.1, hemoglobin 10.4, platelet count 187. No INR was done. Her swabs showed that she is COVID negative, but nasal MRSA positive. IMAGING: Chest x-ray: No active cardiopulmonary disease. EKG: Marked sinus bradycardia at a rate of 39 with normal FL interval and QRS duration. No ischemic changes are seen. IMPRESSION/DIAGNOSES: 1. Symptomatic bradycardia. 2. Calcium channel temo adverse reaction. And she is also on maximum doses of her Carvedilol and Clonidine, which can also decrease her heart rate. 3. Swdvj-gw-nqztmim kidney disease. 4. Hypertension. 5. Diabetes mellitus, on insulin. 6. morbid obesity with BMI of 42. 7. MRSA carrier. PLAN: Place the patient in Observation status into the ICU with topical patch pacing electrodes on, to use in case of need for emergency pacing externally. Hold her medications which create bradycardia, including her Carvedilol, Cardizem, and Clonidine. Await for these medication effects to wash out, then can restart one or two of them at lower doses. Her Hydralazine can be resumed when BP is > 140. Continue a carb-controlled diet and her diabetic management with insulin, long acting doses, at a slightly lower dose while here, as well as a sliding scale Regular insulin will be ordered. Obtain an Echo to evaluate for structural heart disease regarding the symptomatic bradycardia. Troponins have already been cycled and have ruled her out for an IN. Only TKO IV fluids will be given, but otherwise continue with her management for diuresis and CKD management. Continue Lexapro. Hold tth potassium tablets. Follow BMP. Begin nasal swab, alcohol treatment for the MRSA carrier status. DEEP VENOUS THROMBOSIS PROPHYLAXIS: SCDs. CODE STATUS: FULL CODE. ATTESTATION: Patient is expected to be discharged or transferred to another facility within 96 hours: Yes. cc: Farrukh Mcbride MD TD: 02/12/2020 17:18 [email or web address]
--- NOTE | 2020-02-12 17:59 | PHARMACY PROGRESS NOTE ---
- Best Possible Medication History Admit Date and Time: 02/12/20 1107 Processed by: Pharmacy Medication History completed: Yes Patient Interview: Completed Secondary Source(s): Pharmacy records, Insurance records (PATIENT INTERVIEWED BY ADMINISTRATIVE ASSISTANT DATA ENTRY. PATIENT SUPPLIED MEDICATION LIST. ) As the person ultimately responsible for medication therapy, providers are able to order a medication from an existing home medication list in [facility] via the "Reconcile Routine" prior to Confirmation of that medication by network support administrator. Such practice is discouraged except when the physician, in their clinical judgment, deems that a medical need exists for a medication without regard to previous use.
[2020-02-12] MEDS: ethyl alcohoL 62% SWAB AMPULE NAS SCH ×2 (18:43→21:46)
[2020-02-12] MEDS ORDERED: INSULIN NPH HUMAN 300 UNIT/3 ML VIAL SUBQ SCH (21:00)
[2020-02-12] MEDS: TORSEMIDE 20 MG TABLET PO SCH (21:46)
[2020-02-12] MEDS: hydrALAZINE 25 MG TABLET PO SCH (21:46)
[2020-02-13] MEDS: SODIUM CHLORIDE FLUSH 0.9% 10 ML SYRINGE IVP SCH (01:06)
[2020-02-13 04:57] LABS: BASOPHILS % (AUTO) 0.4 %; EOSINOPHILS # (AUTO) 0.1 10^3/uL (0.0-0.7); EOSINOPHILS % (AUTO) 1.9 %; HCT - HEMATOCRIT 31.1 % (37.0-47.0); HGB - HEMOGLOBIN 10.2 g/dL (12.0-16.0); LYMPHOCYTES # (AUTO) 1.9 10^3/uL (1.5-3.5); LYMPHOCYTES % (AUTO) 25.5 %; MEAN CORPUSCULAR HEMOGLOBIN 28.8 pg (27.0-31.0); MEAN CORPUSCULAR HGB CONC 32.8 g/dL (32.0-36.0); MEAN CORPUSCULAR VOLUME 87.9 fL (81.0-99.0); MONOCYTES # (AUTO) 0.6 10^3/uL (0.0-1.0); MONOCYTES % (AUTO) 8.3 %; NEUTROPHILS # (AUTO) 4.7 10^3/uL (1.5-6.6); NEUTROPHILS % (AUTO) 63.6 %; PLT - PLATELET COUNT 203 10^3/uL (130-450); RED BLOOD COUNT 3.54 10^6/uL (4.20-5.40); RED CELL DISTRIBUTION WIDTH 12.7 % (12.0-15.0); WHITE BLOOD COUNT 7.3 x10^3/uL (4.8-10.8)
[2020-02-13 05:06] LABS: CALCIUM 9.2 mg/dL (8.5-10.3); CREATININE 3.2 mg/dL (0.4-1.0); MAGNESIUM 2.2 mg/dL (1.7-2.8); PHOSPHORUS 4.1 mg/dL (2.5-4.6); POTASSIUM 3.3 mmol/L (3.5-5.0)
[2020-02-13] MEDS: hydrALAZINE 25 MG TABLET PO SCH (05:40)
[2020-02-13] MEDS: TORSEMIDE 20 MG TABLET PO SCH (05:40)
--- NOTE | 2020-02-13 07:35 | Discharge Plan ---
Discharge Plan Problem Reviewed?: Yes Disposition: Home, Self Care Condition: Fair Prescriptions: carvediloL [Coreg] 6.25 mg PO BID #30 tablet Insulin NPH Human Isophane [Humulin N Kwikpen] 35 units SUBQ QPM #1 ea Diet: Diabetic Activity Restrictions: Activity as Tolerated Shower Restrictions: No Driving Restrictions: No Health Concerns: You were in Observation status to manage your symptomatic low heart rate (bradycardia). Three of your BP medicines control your hypertension, but also decrease the heart rate excessively. All 3 of these were stopped here, to let your low heart rate recover. Now some can be resumed; follow the new list of medicines and their adjusted doses. Also, your evening dose of long-acting NPH Insulin should be lower. Last night we gave you 40 Units of NPH, which dropped your morning glucose too low this morning. Please take 35 Units, not your usual 50 Units of NPH every evening. Keep your appointments as scheduled. Plan of Treatment: As above. Care Goals: Improvement in symptoms and stabilization are the goals. Assessment: Patient understands and is agreeable with the plan. Additional Instructions or Follow Up instructions: If you have new or worsening symptoms, call your PCP or [facility] for advice or come to the ER. No Smoking: If you smoke, Please STOP! Call for help. Follow-up with: Farrukh Mcbride MD [Primary Care Provider] -
[2020-02-13] MEDS ORDERED: POTASSIUM CHLORIDE 20 MEQ TABLET PO SCH (08:00)
[2020-02-13] MEDS ORDERED: cloNIDine 0.1 MG TABLET PO SCH (08:00)
[2020-02-13] MEDS ORDERED: INSULIN NPH HUMAN 300 UNIT/3 ML VIAL SUBQ SCH (08:00)
[2020-02-13] MEDS: carvediloL 3.125 MG TABLET PO SCH ×2 (08:05→09:11)
--- NOTE | 2020-02-13 08:09 | DISCHARGE SUMMARY ---
Discharge Summary Admit Date: 02/12/20 Discharge Date: 02/13/20 Discharging Provider: Dr Kaelyn Davis Primary Care Provider: Dr Farrukh Mcbride Code Status: Attempt Resuscitation Condition at Discharge: Fair Discharge Disposition: 01 Home, Self Care - HPI History of Present Illness: This is a 54-year-old white female with history of diabetes on insulin, h ypertension, CKD who is followed by a Collar Tacker and is preparing to have a port placed later this week, for home peritoneal dialysis. She has had recurrent kidney stones treated, a cholecystectomy and ovarian cyst removed. She was hospitalized here several months ago for hyperkalemia and her symptoms were marked fatigue. At that time she was on JULIEN-inhibitor, spironolactone and potassium replacement and these medications were changed. This morning she tried to get up and felt very weak twice, was also very lightheaded but did not have syncope. In the emergency room she was found to have a heart rate in the 30s in sinus rhythm, and blood pressure soft at 110 systolic. Labs showed cre atinine of 3.6 (her baseline is 3.2). She is noted to be on 5 blood pressure medications, 3 of which decrease heart rate and are at max doses. She is being placed into Observation status for managing her symptomatic bradycardia. External pacing patches have been applied in the ER in case she emergently needs temporary external pacing. I discussed her CODE STATUS wishes with her, and she wishes to be a FULL CODE. - HOSPITAL COURSE Hospital Course: 1) Symptomatic bradycardia She had two troponins and a BNP checked that were all normal. She underwent an Echo to rule out structural heart disease and the Echo showed normal LV and RV function and mild tricuspid regurgitation with PA pressure of 52 mmHg. Patient was taking maximum doses of Carvedilol 25 mg twice daily, Clonidine 0.2 mg t.i.d. and Cardizem CD 360 mg daily. All 3 were stopped. Her heart rate slowly increased to 50 in several hours, and overnight and by the next morning heart rate was 70-80. She was resumed on half of her usual dose of Carvedilol: 12.5 twice daily, resumed her usual Clonidine dose, but Cardizem CD was advised to be stopped entirely. 2) Calcium channel temo adverse reaction. As above. 3) Acute on chronic kidney disease She received IV fluids at TKO. She was kept on her same Torsemide dose. The next day her creatinine was 3.2. He was advised to keep her upcoming appointment with Nephrology and for the peritoneal port placement. 4) Hypokalemia The next morning her labs showed a serum potassium of 3.2. She did receive oral KCl replacement and because her Torsemide will be continued, her usual outpatient dose of KCl can be continued. 5) Hypertension Only her Hydralazine and Torsemide were continued here. By the next morning, her blood pressure was 170-180 systolic, and we resumed some of her BP medicines at adjusted doses, as described in #1 above. 6) Diabetes mellitus on insulin treatment Reportedly she takes NPH Insulin at 88 units in the morning and 60 units in the evening. Her A1c was 7.1. 7) Hypoglycemia We empirically adjusted her above NPH doses, since she was taking in less of a diet while here. Despite getting only 40 units of NPH at night (not her typical 50 units of NPH at night), her next morning's glucose was low at 64. She admitted that she gets morning glucoses in the 60s at home too. It was advised that she decrease her evening dose of NPH down to 35 Units. 8) Morbid obesity with BMI of 42. As per Hx. 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 - ALLERGIES Allergies/Adverse Reactions: Allergies Allergy/AdvReac Type Severity Reaction Status Date / Time amlodipine Allergy Itching Verified 02/12/20 08:55 morphine Allergy Rash Verified 02/12/20 08:55 prochlorperazine Allergy Unknown Verified 02/12/20 08:55 [From Compazine] liraglutide [From Victoza] AdvReac Emesis Verified 02/12/20 08:55 - MEDICATIONS Home Medications: Ambulatory Orders Medication Instructions Recorded Confirmed Escitalopram [Lexapro] 20 mg PO DAILY 04/20/19 02/12/20 Insulin NPH Human Isophane 80 unit SUBQ QDBREAKFAST 04/20/19 02/12/20 [Humulin N Kwikpen] Rosuvastatin Calcium 10 mg PO DAILY 04/20/19 02/12/20 Hydralazine HCl 100 mg PO TID 08/13/19 02/12/20 Torsemide 40 mg PO TID 02/12/20 02/12/20 cloNIDine [Catapres] 0.2 mg PO TID 02/12/20 02/12/20 Insulin NPH Human Isophane 35 units SUBQ QPM #1 ea 02/13/20 [Humulin N Kwikpen] Potassium Chloride [K-Dur] 40 meq PO BID #120 tab 02/13/20 carvediloL [Coreg] 6.25 mg PO BID #30 tablet 02/13/20 - PHYSICAL EXAM AT DISCHARGE General Appearance: positive: No acute distress, Alert, Other (Pale) Eyes Bilateral: positive: Normal inspection, EOMI ENT: positive: ENT inspection nml, No signs of dehydration Neck: positive: Nml inspection, No JVD Respiratory: positive: No respiratory distress, Breath sounds nml Cardiovascular: positive: Regular rate & rhythm, No murmur Abdomen: positive: Non-tender, No distention, Other (Obese with a pannus) Skin: positive: Warm, Dry, Pallor Extremities: positive: Non-tender, Other (2+ pitting edema to knees) Neurologic/Psychiatric: positive: Oriented x3, Motor nml - LABS Result Diagrams: 02/13/20 04:11 02/13/20 04:11 - DIAGNOSTIC IMAGING Diagnostic Imaging Results: Final report reviewed - FOLLOW UP Follow Up: Keep appointment with Nephrology later this week for dialysis port placement. See PCP Dr. Mcbride for usual follow-up. - TIME SPENT Time Spent in Discharge (Minutes): 40
[2020-02-13] MEDS: POTASSIUM CHLORIDE 20 MEQ TABLET PO ONE ×2 (08:35→09:09)
[2020-02-13] MEDS ORDERED: FAMOTIDINE 20 MG TABLET PO SCH (09:00)
[2020-02-13] MEDS ORDERED: ESCITALOPRAM 10 MG TABLET PO SCH (09:00)
[2020-02-13] MEDS: ethyl alcohoL 62% SWAB AMPULE NAS SCH (09:09)
[2020-02-13 09:49] VITALS: BP 162/75
[2020-02-13 10:13] LABS: ESTIMATED AVERAGE GLUCOSE 157 mg/dL (70-100); HEMOGLOBIN A1c% 7.1 % (4.27-6.07)
[2020-02-13] MEDS ORDERED: carvediloL 3.125 MG TABLET PO SCH (21:00)
== END 2020-02-13 10:38 | disposition home or self-care (01) ==
LOC: ED 08:40 → ICU 11:07
PROVIDERS: ADMIT Internal Medicine; ATTEND Internal Medicine
DX: R00.1 Bradycardia, unspecified (principal); T46.1X5A Adverse effect of calcium-channel blockers, initial encounter; Y92.009 Unspecified place in unspecified non-institutional (private) residence as the place of occurrence of the external cause; E11.22 Type 2 diabetes mellitus with diabetic chronic kidney disease; I12.9 Hypertensive chronic kidney disease with stage 1 through stage 4 chronic kidney disease, or unspecified chronic kidney disease; N18.9 Chronic kidney disease, unspecified; N17.9 Acute kidney failure, unspecified; E87.6 Hypokalemia; Z79.4 Long term (current) use of insulin; E11.649 Type 2 diabetes mellitus with hypoglycemia without coma; E66.01 Morbid (severe) obesity due to excess calories; Z68.41 Body mass index [BMI] 40.0-44.9, adult; Z22.322 Carrier or suspected carrier of Methicillin resistant Staphylococcus aureus; Z99.2 Dependence on renal dialysis; Z90.49 Acquired absence of other specified parts of digestive tract
CPT/HCPCS: 0202U; 36415; 71045; 80048; 80053; 83036; 83690; 83735; 83880; 84100; 84484; 85025; 87150; 93005; 93306; 94640; 96365; 96366; 96375; 99285; 99291; A9270; G0378; J1815; J2765; J7040

== ENCOUNTER 2020-03-05 07:38 | Outpatient (CLI) | payer BC | END 2020-03-05 07:39 | disposition home or self-care (01) | LOC: LAB 07:38 | PROVIDERS: ATTEND Internal Medicine | DX: E11.9 Type 2 diabetes mellitus without complications (principal) | CPT/HCPCS: 36415; 83036 ==

== ENCOUNTER 2020-08-04 08:16 | Outpatient (CLI) | payer BC ==
[2020-08-04 09:13] LABS: ESTIMATED AVERAGE GLUCOSE 203 mg/dL (70-100); HEMOGLOBIN A1c% 8.7 % (4.27-6.07)
[2020-08-04 09:14] LABS: ALBUMIN 3.8 g/dL (3.2-5.5); CALCIUM 9.3 mg/dL (8.5-10.3); PHOSPHORUS 10.3 mg/dL (2.5-4.6); POTASSIUM 4.8 mmol/L (3.5-5.0)
[2020-08-04 09:22] LABS: CREATININE 8.6 mg/dL (0.4-1.0)
== END 2020-08-04 08:17 | disposition home or self-care (01) ==
LOC: LAB 08:16
PROVIDERS: ATTEND Internal Medicine
DX: E11.22 Type 2 diabetes mellitus with diabetic chronic kidney disease (principal); I12.9 Hypertensive chronic kidney disease with stage 1 through stage 4 chronic kidney disease, or unspecified chronic kidney disease; N18.9 Chronic kidney disease, unspecified
CPT/HCPCS: 36415; 80069; 83036

== ENCOUNTER 2020-08-15 10:12 | Outpatient (CLI) | payer BC ==
--- NOTE | 2020-08-15 11:00 | XRAY Report ---
PROCEDURE: Lumbar Spine 2 View INDICATIONS: LOW BACK PAIN TECHNIQUE: 3 views of the lumbar spine were acquired. COMPARISON: None. FINDINGS: Bones: 5 [id number] vertebrae are present. There is normal bony alignment. No vertebral body compression fractures. No suspicious bony lesions. Disc space narrowing is seen at the L2-3 level w ith degenerative endplate changes. Additional mild degenerative endplate changes are seen throughout the lumbar spine. Mild facet hypertrophy is identified. Soft tissues: Overlying bowel gas pattern is normal. No suspicious soft tissue calcifications. IMPRESSION: No acute osseous abnormality. Multilevel spondylosis. If symptoms persist, further evalu ation may be obtained with lumbar spine MRI. Reviewed by: Giovanni Moya MD on 08/15/2020 10:59 AM PDT Approved by: Giovanni Moya MD on 08/15/2020 10:59 AM PDT Station ID: [id number]
== END 2020-08-15 10:13 | disposition home or self-care (01) ==
LOC: DI 10:12
PROVIDERS: ATTEND Internal Medicine
DX: M47.816 Spondylosis without myelopathy or radiculopathy, lumbar region (principal)

== ENCOUNTER 2020-08-22 09:06 | Emergency (ER) | payer BC ==
[2020-08-22] MEDS ORDERED: SODIUM CHLORIDE 0.9% 1,000 ML IV STA ×3 (09:34→12:00)
--- NOTE | 2020-08-22 09:36 | ED Physician Documentation ---
History of Present Illness - Stated complaint Stated Complaint: WEAKNESS - Chief complaint Chief Complaint: Neuro - History obtained from History obtained from: Patient, Family - History of Present Illness Timing: How many weeks ago (2) - Additonal information Additional information: 55-year-old female who is on chronic peritoneal dialysis has gone to a wedding in [place] with her 2 weeks ago and following that she has developed weakness she had a high phosphorus level and she was not able to get her binders in [place]. She started those when she got back home and she has not been eating well and she is again not been taking the binders. She has developed progressive weakness she has lost about 15 pounds. Review of Systems Constitutional: denies: Fever Eyes: denies: Decreased vision Ears: denies: Ear pain Nose: denies: Congestion Throat: denies: Sore throat Cardiac: denies: Chest pain / pressure, Palpitations Respiratory: denies: Dyspnea, Cough GI: denies: Abdominal Pain Neurologic: reports: Generalized weakness. 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 HEENT: Tonsil/Adenoidectomy - Present Medications Home Medications: Ambulatory Orders Medication Instructions Recorded Confirmed Escitalopram [Lexapro] 20 mg PO DAILY 04/20/19 08/22/20 Insulin NPH Human Isophane 145 unit SUBQ QDBREAKFAST 04/20/19 08/22/20 [Humulin N Kwikpen] Rosuvastatin Calcium 10 mg PO DAILY 04/20/19 08/22/20 Hydralazine HCl 100 mg PO TID 08/13/19 02/12/20 Torsemide 40 mg PO TID 02/12/20 02/12/20 Potassium Chloride [K-Dur] 40 meq PO BID #120 tab 02/13/20 Aspirin [Nenana Aspirin] 1 tab PO DAILY 08/22/20 08/22/20 Insulin NPH Human Isophane 85 units SUBQ QPM 08/22/20 08/22/20 [Humulin N Kwikpen] Lisinopril [Zestril] 40 mg PO DAILY 08/22/20 08/22/20 carvediloL [Coreg] 25 mg PO BID 08/22/20 08/22/20 - Allergies Allergies/Adverse Reactions: Allergies Allergy/AdvReac Type Severity Reaction Status Date / Time amlodipine Allergy Itching Verified 08/22/20 09:20 morphine Allergy Rash Verified 08/22/20 09:20 prochlorperazine Allergy Unknown Verified 08/22/20 09:20 [From Compazine] liraglutide [From Victoza] AdvReac Emesis Verified 08/22/20 09:20 - Social History Does the pt smoke?: No Smoking Status: Never smoker Does the pt drink ETOH?: No Does the pt have substance abuse?: No - Immunizations Immunizations are current?: Yes - POLST Patient has POLST: No POLST Status: Full Code PD ED PE NORMAL - Vitals Vital signs reviewed: Yes - General General: Alert and oriented X 3, Well developed/nourished, Other (there is delay in execution of motor commands.) - HEENT HEENT: Atraumatic, PERRL, EOMI - Neck Neck: Supple, no meningeal sign, No bony TTP - Cardiac Cardiac: RRR, No murmur - Respiratory Respiratory: No respiratory distress, Clear bilaterally - Abdomen Abdomen: Normal bowel sounds, Soft, Non tender, Non distended, No organomegaly - Back Back: No CVA TTP, Other (lower lumbar tenderness ) - Derm Derm: Normal color, Warm and dry, No rash - Extremities Extremities: No deformity, No edema - Neuro Neuro: er manager 2-12 intact, No motor deficit, No sensory deficit, Normal speech Eye Opening: Spontaneous Motor: Obeys Commands Verbal: Oriented GCS Score: 15 - Psych Psych: Other (mood is withdrawn and affect is flat. ) Results - Vitals Vitals: Vital Signs - 24 hr 08/22/20 08/22/20 08/22/20 09:10 10:30 10:40 Temperature 36.6 C Heart Rate 84 78 77 Respiratory 16 14 Rate Blood Pressure 92/63 82/52 L 86/55 L O2 Saturation 97 96 68 L 08/22/20 08/22/20 08/22/20 11:30 12:00 13:02 Temperature Heart Rate 80 79 72 Respiratory 15 20 15 Rate Blood Pressure 86/51 L 93/57 L 89/55 L O2 Saturation 99 98 99 08/22/20 08/22/20 13:39 14:02 Temperature Heart Rate 74 75 Respiratory 16 16 Rate Blood Pressure 90/56 L 107/55 L O2 Saturation 98 97 Oxygen O2 Source Room air - Labs Labs: Laboratory Tests 08/22/20 08/22/20 09:29 09:29 WBC 10.7 RBC 3.27 L Hgb 10.5 L Hct 30.1 L MCV 92.0 MCH 32.1 H MCHC 34.9 RDW 12.9 Plt Count 260 MPV 9.1 Neut # (Auto) 6.2 Lymph # (Auto) 2.8 Bertie # (Auto) 1.4 H Eos # (Auto) 0.2 Baso # (Auto) 0.1 Absolute Nucleated RBC 0.00 Nucleated RBC % 0.0 Sodium 132 L Potassium 4.7 Chloride 88 L Carbon Dioxide 29 Anion Gap 15.0 H BUN 75 H Creatinine 12.0 H* Estimated GFR (MDRD) 3 L Glucose 235 H Calcium 12.6 H* Phosphorus 6.8 H Magnesium 2.5 Total Bilirubin 0.4 AST 25 ALT 28 Alkaline Phosphatase 58 Total Protein 7.3 Albumin 3.9 Globulin 3.4 Albumin/Globulin Ratio 1.1 Lipase 64 H Procedures - IVC sono (time) 0932 Bedside IVC sono: IVC measures (cm) (0.70), Significant dehydration (est 2-3 liter deficit) PD MEDICAL DECISION MAKING - ED course Complexity details: reviewed old records, reviewed results, re-evaluated patient, considered differential, d/w patient, d/w family ED course: 55-year-old diabetic female on peritoneal dialysis has returned from a trip to [place] and she is profoundly dehydrated and her potassium her calcium is markedly elevated. She is on phosphate binders, calcium supplements, vitamin D and she has also been taking antacids as she has recently had a problem with reflux esophagitis. We provided intravenous fluid to the patient and we were able to provide 2 L of fluid she had some minimal improvement. I consulted the o n-call warehouse loader for her warehouse loader and I spoke to Dr. Box. He recommended that the patient be hospitalized as she will need peritoneal dialysis and fluid. He recommends not providing 1/3 L of fluid as a bolus and he recommends hospitalization for this. Departure - Departure Disposition: 02 Transfer Acute Care Hosp Clinical Impression: Dehydration, Hypercalcemia associated with chronic dialysis Condition: Stable
[2020-08-22 09:41] LABS: BASOPHILS # (AUTO) 0.1 10^3/uL (0.0-0.1); BASOPHILS % (AUTO) 0.5 %; EOSINOPHILS # (AUTO) 0.2 10^3/uL (0.0-0.7); EOSINOPHILS % (AUTO) 1.6 %; HCT - HEMATOCRIT 30.1 % (37.0-47.0); HGB - HEMOGLOBIN 10.5 g/dL (12.0-16.0); LYMPHOCYTES # (AUTO) 2.8 10^3/uL (1.5-3.5); LYMPHOCYTES % (AUTO) 26.6 %; MEAN CORPUSCULAR HEMOGLOBIN 32.1 pg (27.0-31.0); MEAN CORPUSCULAR HGB CONC 34.9 g/dL (32.0-36.0); MEAN PLATELET VOLUME 9.1 fL (7.9-10.8); MONOCYTES # (AUTO) 1.4 10^3/uL (0.0-1.0); NEUTROPHILS # (AUTO) 6.2 10^3/uL (1.5-6.6); NEUTROPHILS % (AUTO) 57.8 %; PLT - PLATELET COUNT 260 10^3/uL (130-450); RED BLOOD COUNT 3.27 10^6/uL (4.20-5.40); RED CELL DISTRIBUTION WIDTH 12.9 % (12.0-15.0); WHITE BLOOD COUNT 10.7 x10^3/uL (4.8-10.8)
[2020-08-22 10:01] LABS: ALBUMIN 3.9 g/dL (3.2-5.5); ALBUMIN/GLOBULIN RATIO 1.1 (1.0-2.2); BILIRUBIN,TOTAL 0.4 mg/dL (0.2-1.0); MAGNESIUM 2.5 mg/dL (1.7-2.8); PHOSPHORUS 6.8 mg/dL (2.5-4.6); POTASSIUM 4.7 mmol/L (3.5-5.0); TOTAL PROTEIN 7.3 g/dL (6.7-8.2)
[2020-08-22 10:05] LABS: CALCIUM 12.6 mg/dL (8.5-10.3)
[2020-08-22] MEDS ORDERED: ONDANSETRON 4 MG/2 ML VIAL IVP STA (10:16)
[2020-08-22] MEDS ORDERED: HYDROmorphone 1 MG/ML CARPUJECT IVP STA ×2 (10:16→12:51)
[2020-08-22 16:02] LABS: B. PARAPERTUSSIS- RESP PCR PAN NOT DETECTED; B. PERTUSSIS- RESP PCR PANEL NOT DETECTED; C. PNEUMONIAE- RESP PCR PANEL NOT DETECTED; CORONAVIRUS 229E-RESP PCR NOT DETECTED; CORONAVIRUS HKU1-RESP PCR NOT DETECTED; CORONAVIRUS NL63-RESP PCR NOT DETECTED; CORONAVIRUS OC43-RESP PCR NOT DETECTED; HUMAN METAPNEUMOVIRUS NOT DETECTED; INFLUENZA A- RESP PCR PANEL NOT DETECTED; INFLUENZA B - RESP PCR PANEL NOT DETECTED; M. PNEUMONIAE- RESP PCR PANEL NOT DETECTED; PARAINFLUENZA VIRUS 1 NOT DETECTED; PARAINFLUENZA VIRUS 2 NOT DETECTED; PARAINFLUENZA VIRUS 3 NOT DETECTED; PARAINFLUENZA VIRUS 4 NOT DETECTED; RHINOVIRUS/ENTEROVIRUS NOT DETECTED; RSV- RESP PCR PANEL NOT DETECTED; SARS-CoV-2 -RESP PCR PANEL NOT DETECTED
[2020-08-22 17:53] VITALS: BP 121/69
== END 2020-08-22 18:04 | disposition short-term general hospital (02) ==
LOC: ED 09:06
DX: E86.0 Dehydration (principal); E83.52 Hypercalcemia; R53.1 Weakness; Z99.2 Dependence on renal dialysis; K21.9 Gastro-esophageal reflux disease without esophagitis; I10 Essential (primary) hypertension; E11.9 Type 2 diabetes mellitus without complications; Z79.4 Long term (current) use of insulin; Z79.82 Long term (current) use of aspirin; Z20.822 Contact with and (suspected) exposure to COVID-19
CPT/HCPCS: 0202U; 36415; 80053; 83690; 83735; 84100; 85025; 96361; 96374; 96375; 96376; 99284; 99285; J1170

== ENCOUNTER 2020-08-30 06:25 | Outpatient (CLI) | payer BC | END 2020-08-30 06:26 | disposition short-term general hospital (02) | LOC: EMS 06:25 | DX: R52 Pain, unspecified (principal); R53.1 Weakness; R11.10 Vomiting, unspecified | CPT/HCPCS: A0425; A0429 ==

== ENCOUNTER 2020-09-22 11:02 | Outpatient (CLI) | payer BC ==
[2020-09-22 12:55] LABS: ESTIMATED AVERAGE GLUCOSE 163 mg/dL (70-100); HEMOGLOBIN A1c% 7.3 % (4.27-6.07)
== END 2020-09-22 11:03 | disposition home or self-care (01) ==
LOC: LAB 11:02
PROVIDERS: ATTEND Internal Medicine
DX: E11.9 Type 2 diabetes mellitus without complications (principal)
CPT/HCPCS: 36415; 83036

== ENCOUNTER 2022-04-08 13:37 | Emergency (ER) | payer OTHER, MEDICARE ==
--- NOTE | 2022-04-08 14:07 | ED Physician Documentation ---
History of Present Illness - Stated complaint Stated Complaint: LOW BP - Chief complaint Chief Complaint: General - History obtained from History obtained from: Patient - Additonal information Additional information: 56-year-old woman on peritoneal dialysis for diabetic nephropathy, hypertension, kidney stones, cholecystectomy. Her certified nurses' aide is Dr. Fajardo at [facility]. She does nightly peritoneal dialysis. She only urinates about 100 mL per night. For few weeks she has had hemorrhoidal bright red blood per rectum and last week developed symptomatic COVID now better. Over the last few days she has had orthostatic type dizziness and had an episode of weakness today without syncope and fell without injury. She has noticed high heart rate and low blood pressure at home. Her blood pressure is usually normal at 120/80 or so but has been around 80/60 over the last couple of days. 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 HEENT: Tonsil/Adenoidectomy - Present Medications Home Medications: Ambulatory Orders Medication Instructions Recorded Confirmed Rosuvastatin Calcium 10 mg PO DAILY 04/20/19 04/08/22 Torsemide 120 mg PO TID 02/12/20 04/08/22 Aspirin [[place] Aspirin] 1 tab PO DAILY 08/22/20 04/08/22 Lisinopril [Zestril] 40 mg PO DAILY 08/22/20 04/08/22 carvediloL [Coreg] 25 mg PO DAILY 08/22/20 04/08/22 Ferrous Sulfate [Feosol] 325 mg PO DAILY 04/08/22 04/08/22 Insulin Glargine [Lantus Solostar] 60 unit SQ HS 04/08/22 04/08/22 Insulin Glargine [Lantus Solostar] 120 unit SQ DAILY 04/08/22 04/08/22 Lactulose 10 gm PO BID 04/08/22 04/08/22 PARoxetine [Paxil] 20 mg PO DAILY 04/08/22 04/08/22 Sevelamer Carbonate [Renvela] 2.4 gm PO TID 04/08/22 04/08/22 Spironolactone [Aldactone] 50 mg PO DAILY 04/08/22 04/08/22 - Allergies Allergies/Adverse Reactions: Allergies Allergy/AdvReac Type Severity Reaction Status Date / Time amlodipine Allergy Itching Verified 04/08/22 13:47 morphine Allergy Rash Verified 04/08/22 13:47 prochlorperazine Allergy Unknown Verified 04/08/22 13:47 [From Compazine] liraglutide [From Victoza] AdvReac Emesis Verified 04/08/22 13:47 - Social History Does the pt smoke?: No Smoking Status: Never smoker Does the pt drink ETOH?: No Does the pt have substance abuse?: No - Immunizations Immunizations are current?: Yes - POLST Patient has POLST: No POLST Status: Full Code PD ED PE NORMAL - Vitals Vital signs reviewed: Yes (Modest resting tachycardia) - General General: Alert and oriented X 3, No acute distress - HEENT HEENT: PERRL, EOMI - Neck Neck: Supple, no meningeal sign, No bony TTP - Cardiac Cardiac: RRR, No murmur - Respiratory Respiratory: No respiratory distress, Clear bilaterally - Abdomen Abdomen: Normal bowel sounds, Soft, Non tender, Other (Dialysis catheter in place left lower quadrant. No redness or tenderness.) - Back Back: No CVA TTP, No spinal TTP - Derm Derm: Normal color, Warm and dry - Extremities Extremities: No edema, No calf tenderness / cord - Neuro Neuro: Alert and oriented X 3, Normal speech Results - Vitals Vitals: Vital Signs - 24 hr 04/08/22 04/08/22 04/08/22 13:40 14:30 15:03 Temperature 36 C L Heart Rate 114 H 103 H Heart Rate [ 110 H Sitting] Heart Rate [ 111 H Standing] Heart Rate [ 100 Supine] Respiratory 18 18 Rate Blood Pressure 110/64 117/86 H Blood Pressure 113/52 L [Sitting] Blood Pressure 117/71 [Standing] Blood Pressure 114/74 [Supine] O2 Saturation 98 99 Oxygen O2 Source Room air - EKG (time done) 1442 Rate: Rate (enter#) (100) Rhythm: NSR [place]: Normal Intervals: Normal [place], Prolonged QT Ischemia: Non specific changes. No: ST elevation c/w ischemia, ST depression - Labs Labs: Laboratory Tests 04/08/22 04/08/22 14:11 14:11 WBC 8.4 RBC 3.43 L Hgb 11.1 L Hct 33.2 L MCV 96.8 MCH 32.4 H MCHC 33.4 RDW 15.3 H Plt Count 287 MPV 9.0 Neut # (Auto) 5.4 Lymph # (Auto) 1.8 [place] # (Auto) 0.8 Eos # (Auto) 0.3 Baso # (Auto) 0.1 Absolute Nucleated RBC 0.00 Nucleated RBC % 0.0 Sodium 129 L Potassium 3.5 Chloride 86 L Carbon Dioxide 25 Anion Gap 18.0 H BUN 48 H Creatinine 11.7 H* Estimated GFR (MDRD) 3 L Glucose 201 H Calcium 9.5 Phosphorus 8.9 H Magnesium 2.0 Total Bilirubin 0.9 AST 15 ALT 15 Alkaline Phosphatase 97 Total Protein 7.7 Albumin 4.0 Globulin 3.7 Albumin/Globulin Ratio 1.1 PD Medical Decision Making - ED course Complexity details: reviewed results (Chronic anemia, better than prior, on CBC. CMP notable for known renal failure and modest hyponatremia.) ED course: 56-year-old woman who is oligurinc (not anuric) with known renal failure on peritoneal dialysis presents with low blood pressure and orthostasis. ongoing hemorrhoidal bleeding and also having had COVID last week. Worry would be for blood loss anemia related to her hemorrhoids versus poor intake related to recent COVID causing orthostasis. Plan to check blood counts and orthostatics as well as other routine labs. Nothing in the history or physical to suggest infection. She does have some rise in her heart rate with orthostatics. We clarified her medications, in contrast to the nurses note her torsemide dose is 160 mg once a day. We will give her 500 mL of IV saline and she has follow-up with her certified nurses' aide tomorrow. Departure - Departure Disposition: Home, Self Care Clinical Impression: Orthostasis, ESRD (end stage renal disease) Condition: Good Record reviewed to determine appropriate education?: Yes Instructions: ED Hypotension Orthostatic Comments: You are seen today for low blood pressures, I would recommend halving your dose of lisinopril tomorrow and follow-up with your certified nurses' aide tomorrow as scheduled with a copy of your labs that I gave you and let her know that we gave you 500 mL of saline today. Return if worsening.
[2022-04-08 14:18] LABS: BASOPHILS # (AUTO) 0.1 10^3/uL (0.0-0.1); BASOPHILS % (AUTO) 0.6 %; EOSINOPHILS # (AUTO) 0.3 10^3/uL (0.0-0.7); EOSINOPHILS % (AUTO) 3.8 %; HCT - HEMATOCRIT 33.2 % (37.0-47.0); HGB - HEMOGLOBIN 11.1 g/dL (12.0-16.0); LYMPHOCYTES # (AUTO) 1.8 10^3/uL (1.5-3.5); LYMPHOCYTES % (AUTO) 21.4 %; MEAN CORPUSCULAR HEMOGLOBIN 32.4 pg (27.0-31.0); MEAN CORPUSCULAR HGB CONC 33.4 g/dL (32.0-36.0); MEAN CORPUSCULAR VOLUME 96.8 fL (81.0-99.0); MONOCYTES # (AUTO) 0.8 10^3/uL (0.0-1.0); MONOCYTES % (AUTO) 9.4 %; NEUTROPHILS # (AUTO) 5.4 10^3/uL (1.5-6.6); NEUTROPHILS % (AUTO) 64.4 %; PLT - PLATELET COUNT 287 10^3/uL (130-450); RED BLOOD COUNT 3.43 10^6/uL (4.20-5.40); RED CELL DISTRIBUTION WIDTH 15.3 % (12.0-15.0); WHITE BLOOD COUNT 8.4 x10^3/uL (4.8-10.8)
[2022-04-08 14:35] LABS: ALBUMIN/GLOBULIN RATIO 1.1 (1.0-2.2); BILIRUBIN,TOTAL 0.9 mg/dL (0.2-1.0); CALCIUM 9.5 mg/dL (8.5-10.3); PHOSPHORUS 8.9 mg/dL (2.5-4.6); POTASSIUM 3.5 mmol/L (3.5-5.0); TOTAL PROTEIN 7.7 g/dL (6.7-8.2)
[2022-04-08 14:38] LABS: CREATININE 11.7 mg/dL (0.4-1.0)
[2022-04-08] MEDS ORDERED: SODIUM CHLORIDE 0.9% 500 ML IV STA (15:02)
[2022-04-08 16:04] VITALS: BP 103/67
== END 2022-04-08 16:06 | disposition home or self-care (01) ==
LOC: ED 13:37
DX: I95.1 Orthostatic hypotension (principal); I12.0 Hypertensive chronic kidney disease with stage 5 chronic kidney disease or end stage renal disease; E11.22 Type 2 diabetes mellitus with diabetic chronic kidney disease; N18.6 End stage renal disease; Z99.2 Dependence on renal dialysis; E11.21 Type 2 diabetes mellitus with diabetic nephropathy; E78.00 Pure hypercholesterolemia, unspecified; Z79.82 Long term (current) use of aspirin; Z79.899 Other long term (current) drug therapy; Z79.4 Long term (current) use of insulin
CPT/HCPCS: 36415; 80053; 83735; 84100; 85025; 86850; 86900; 86901; 93005; 96360; 99284

== ENCOUNTER 2022-09-23 07:00 | Outpatient (CLI) | payer OTHER, MEDICARE ==
--- NOTE | 2022-09-23 15:59 | XRAY Report ---
PROCEDURE: Finger(s) LT INDICATIONS: LEFT LONG FINGER PAIN TECHNIQUE: AP hand, 2 views of the left third finger(s) acquired. COMPARISON: None. FINDINGS: Bones: No fractures or dislocations. No suspicious bony lesions. Soft tissues: No suspicious soft tissue calcifications or masses. IMPRESSION: No fracture. No osseous lesion. If symptoms and/or clinical concern for pathology persists, further a ssessment with repeat plain film radiographs (7-10 days) or advanced imaging (CT, MR, bone scan) shou ld be considered. Reviewed by: Latrice Odell MD, PhD on 09/23/2022 3:58 PM PDT Approved by: Latrice Odell MD, PhD on 09/23/2022 3:58 PM PDT Station ID: [id number]
== END 2022-09-23 23:59 | disposition home or self-care (01) ==
LOC: DI.S 07:00
PROVIDERS: ATTEND Physician Assistant
DX: M79.645 Pain in left finger(s) (principal)

== ENCOUNTER 2023-01-02 17:51 | Emergency (ER) | payer MEDICARE, OTHER ==
[2023-01-02] MEDS ORDERED: SODIUM CHLORIDE 0.9% 500 ML IV STA (18:05)
--- NOTE | 2023-01-02 18:12 | ED Physician Documentation ---
History of Present Illness - Stated complaint Stated Complaint: LOW BP - Chief complaint Chief Complaint: Cardiac - History obtained from History obtained from: Patient - Additonal information Additional information: 57-year-old woman with ESRD on peritoneal dialysis started losartan yesterday and today has noted low blood pressures at home and feeling orthostatic. She also has nausea related to starting Ozempic 3 weeks ago. Denies fevers, chills, abdominal pain, diarrhea, or respiratory symptoms. She states last week she had outpatient labs done which showed modestly low potassium (she thinks 3.3) and calcium (she thinks around 7). She is already been started on potassium supplementation and calcium carbonate as well. 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 HEENT: Tonsil/Adenoidectomy - Present Medications Home Medications: Ambulatory Orders Medication Instructions Recorded Confirmed Rosuvastatin Calcium 10 mg PO DAILY 04/20/19 04/08/22 Torsemide 120 mg PO TID 02/12/20 04/08/22 Aspirin [[place] Aspirin] 1 tab PO DAILY 08/22/20 04/08/22 Lisinopril [Zestril] 40 mg PO DAILY 08/22/20 04/08/22 carvediloL [Coreg] 25 mg PO DAILY 08/22/20 04/08/22 Ferrous Sulfate [Feosol] 325 mg PO DAILY 04/08/22 04/08/22 Insulin Glargine [Lantus Solostar] 60 unit SQ HS 04/08/22 04/08/22 Insulin Glargine [Lantus Solostar] 120 unit SQ DAILY 04/08/22 04/08/22 Lactulose 10 gm PO BID 04/08/22 04/08/22 PARoxetine [Paxil] 20 mg PO DAILY 04/08/22 04/08/22 Sevelamer Carbonate [Renvela] 2.4 gm PO TID 04/08/22 04/08/22 Spironolactone [Aldactone] 50 mg PO DAILY 04/08/22 04/08/22 - Allergies Allergies/Adverse Reactions: Allergies Allergy/AdvReac Type Severity Reaction Status Date / Time amlodipine Allergy Itching Verified 01/02/23 18:02 morphine Allergy Rash Verified 01/02/23 18:02 prochlorperazine Allergy Unknown Verified 01/02/23 18:02 [From Compazine] liraglutide [From Victoza] AdvReac Emesis Verified 01/02/23 18:02 - Social History Does the pt smoke?: No Smoking Status: Never smoker Does the pt drink ETOH?: No Does the pt have substance abuse?: No - Immunizations Immunizations are current?: Yes - POLST Patient has POLST: No POLST Status: Full Code PD ED PE NORMAL - Vitals Vital signs reviewed: Yes - General General: Alert and oriented X 3, No acute distress - Cardiac Cardiac: RRR, No murmur - Respiratory Respiratory: No respiratory distress, Clear bilaterally - Abdomen Abdomen: Other (Dialysis catheter left lower quadrant without signs of infection, no diffuse tenderness.) - Extremities Extremities: No edema, No calf tenderness / cord - Neuro Neuro: Alert and oriented X 3, Normal speech Results - Vitals Vitals: Vital Signs - 24 hr 01/02/23 01/02/23 01/02/23 18:02 18:04 18:34 Temperature 36.8 C 36.8 C Heart Rate 108 H 108 H 100 Respiratory 24 24 22 Rate Blood Pressure 96/66 96/66 95/56 L O2 Saturation 98 98 96 01/02/23 19:04 Temperature 36.8 C Heart Rate 90 Respiratory 20 Rate Blood Pressure 98/60 O2 Saturation 98 Oxygen O2 Source Room air - EKG (time done) 1757 EKG releavant findings:: EKG personally interpreted by author of this note. Relevant findings are: Rate: Rate (enter#) (107) Rhythm: Sinus tachycardia [place]: Normal Intervals: Prolonged QT QRS: Normal Ischemia: No: ST elevation c/w ischemia, ST depression - Labs Labs: Laboratory Tests 01/02/23 01/02/23 18:29 18:29 WBC 7.4 RBC 3.85 L Hgb 12.5 Hct 36.5 L MCV 94.8 MCH 32.5 H MCHC 34.2 RDW 14.6 Plt Count 305 MPV 9.3 Neut # (Auto) 4.4 Lymph # (Auto) 1.8 [place] # (Auto) 0.9 Eos # (Auto) 0.2 Baso # (Auto) 0.1 Absolute Nucleated RBC 0.00 Nucleated RBC % 0.0 Sodium 126 L Potassium 3.6 Chloride 88 L Carbon Dioxide 24 Anion Gap 14.0 H BUN 46 H Creatinine 9.8 H* Estimated GFR (MDRD) 4 L Glucose 217 H Calcium 7.4 L Magnesium 1.8 Total Bilirubin 0.4 AST 20 ALT 23 Alkaline Phosphatase 176 H Total Protein 7.2 Albumin 4.3 Globulin 2.9 Albumin/Globulin Ratio 1.5 Procedures - General procedure General procedure: She was difficult for IV access, I personally placed a long 22-gauge IV in the right cephalic vein using real-time ultrasound guidance after ChloraPrep that flushed and giselle well. PD Medical Decision Making - ED course ED course: 57yo woman on PD for ESRD with symptomatic hypotension r/t starting new med, losartan.' Given IVF. No s/sx of infection or sepsis. Care to Dr Berger at 7p pending lytes. Departure - Departure Disposition: 01 Home, Self Care Clinical Impression: ESRD (end stage renal disease), Hypocalcemia Hypotension Qualifiers: Hypotension type: unspecified hypotension type Qualified Code(s): I95.9 - Hypotension, unspecified Condition: Good Record reviewed to determine appropriate education?: Yes Instructions: ED Hypotension Orthostatic Comments: You were seen tonight for lower blood pressures after starting the new blood pressure medication. I would recommend you discontinue the losartan and discuss with your tool dispatcher tomorrow. As far as your potassium and calcium, your potassium is normal today and your calcium has come up since last week to 7.4. You can continue the supplements for now and discuss the length of time you need to be on the supplements with your tool dispatcher as well. Forms: PCP List Discharge Date/Time: 01/02/23 19:20
[2023-01-02] MEDS ORDERED: METOCLOPRAMIDE 10 MG/2 ML VIAL IVP STA (18:29)
[2023-01-02 18:35] LABS: BASOPHILS # (AUTO) 0.1 10^3/uL (0.0-0.1); BASOPHILS % (AUTO) 0.7 %; EOSINOPHILS # (AUTO) 0.2 10^3/uL (0.0-0.7); HCT - HEMATOCRIT 36.5 % (37.0-47.0); HGB - HEMOGLOBIN 12.5 g/dL (12.0-16.0); LYMPHOCYTES # (AUTO) 1.8 10^3/uL (1.5-3.5); LYMPHOCYTES % (AUTO) 24.9 %; MEAN CORPUSCULAR HEMOGLOBIN 32.5 pg (27.0-31.0); MEAN CORPUSCULAR HGB CONC 34.2 g/dL (32.0-36.0); MEAN CORPUSCULAR VOLUME 94.8 fL (81.0-99.0); MEAN PLATELET VOLUME 9.3 fL (7.9-10.8); MONOCYTES # (AUTO) 0.9 10^3/uL (0.0-1.0); MONOCYTES % (AUTO) 12.3 %; NEUTROPHILS # (AUTO) 4.4 10^3/uL (1.5-6.6); NEUTROPHILS % (AUTO) 59.7 %; PLT - PLATELET COUNT 305 10^3/uL (130-450); RED BLOOD COUNT 3.85 10^6/uL (4.20-5.40); RED CELL DISTRIBUTION WIDTH 14.6 % (12.0-15.0); WHITE BLOOD COUNT 7.4 x10^3/uL (4.8-10.8)
[2023-01-02 18:49] LABS: ALBUMIN 4.3 g/dL (3.2-5.5); MAGNESIUM 1.8 mg/dL (1.7-2.3)
[2023-01-02 19:04] LABS: ALBUMIN/GLOBULIN RATIO 1.5 (1.0-2.2); BILIRUBIN,TOTAL 0.4 mg/dL (0.2-1.0); CALCIUM 7.4 mg/dL (8.5-10.3); CREATININE 9.8 mg/dL (0.6-1.3); POTASSIUM 3.6 mmol/L (3.5-4.5); TOTAL PROTEIN 7.2 g/dL (6.4-8.9)
--- NOTE | 2023-01-02 19:13 | ED Physician Documentation ---
ED Addendum - Addendum Addendum: 01/02/23 19:11 The patient was signed out to me at change of shift by Dr. Jiménez, pending ER abdominal panel after presenting for lightheadedness after taking losartan. The patient was just recently started on losartan, secondary to hypertension, though it sounds like her blood pressures were not terribly high with systolics in the 140s. The patient was found to be in the 90s over 50s here. She was given a liter of normal saline and systolic blood pressures were in the upper 90s to low 100s following this. The patient had been started on potassium and calcium supplements this past week for hypocalcemia at 7 and hypokalemia in the low threes. The patient was found to have a potassium of 3.6 here and calcium of 7.4. At this point in time, the patient stable for discharge home. We have discussed the need for follow-up with her certified medical biller, and for now, continuation on her supplements. We have also recommended that she discontinue the losartan since it seems to be affecting her excessively and that she called her certified medical biller office tomorrow to touch base and figure out a new plan. Final impression: See original note Disposition: Home in stable and improved condition.
[2023-01-02 19:26] VITALS: BP 98/60; O2SAT 98
== END 2023-01-02 19:20 | disposition home or self-care (01) ==
LOC: ED 17:51
DX: I95.2 Hypotension due to drugs (principal); T46.5X5A Adverse effect of other antihypertensive drugs, initial encounter; E83.51 Hypocalcemia; N18.6 End stage renal disease; Z99.2 Dependence on renal dialysis
CPT/HCPCS: 36415; 80053; 83735; 85025; 93005; 96374; 99283; 99284; J2765

== ENCOUNTER 2023-02-15 10:32 | Outpatient (CLI) | payer MEDICARE, OTHER ==
--- NOTE | 2023-02-25 11:34 | Mammography Report ---
BILATERAL DIGITAL SCREENING MAMMOGRAM 3D/2D: 02/15/2023 CLINICAL: Routine screening. No prior exams were available for comparison. There are scattered areas of fibroglandular density in both breasts (category b / 25%-50% glandular t issue). There is a cluster of oval focal asymmetries in the right breast at 12 o'clock anterior depth. Benign vascular calcifications in both breasts. No other significant masses, calcifications, or other findings are seen in either breast. IMPRESSION: INCOMPLETE: NEEDS ADDITIONAL IMAGING EVALUATION The cluster of oval focal asymmetries in the right breast resembles a cyst or an intramammary node an d is indeterminate. Additional views with possible ultrasound are recommended. Based on the Tyrer Cuzick model (a risk assessment model) the patients lifetime risk is 7.1% and her 10 year risk is 2.7%. According to the ACR, ACS, and NCCN guidelines, an annual breast MRI exam leif g with mammogram is recommended if the patients lifetime risk is 20% or greater. This exam was interpreted at Station ID: [id number]. NOTE: For mammograms, a report in lay terms will be sent to the patient. Approximately 15% of breast malignancies will not be visualized mammographically. In the management of a palpable breast mass, a negative mammogram must not discourage biopsy of a clinically suspicious lesion. Electronically Signed By: Lloyd Martinez M.D. slc/:02/23/2023 10:26:40 ACR BI-RADS Category 0: Incomplete 3340F PARENCHYMAL PATTERN: (A) - The breast(s) demonstrate(s) scattered fibroglandular densities. BI-RADS CATEGORY: (0) - 0 Mammo and [place] [id number] Immediate follow-up LATERALITY: (B)
== END 2023-02-15 10:33 | disposition home or self-care (01) ==
LOC: DI.S 10:32
PROVIDERS: ATTEND Internal Medicine
DX: Z12.31 Encounter for screening mammogram for malignant neoplasm of breast (principal); R92.323 Mammographic fibroglandular density, bilateral breasts; R92.1 Mammographic calcification found on diagnostic imaging of breast; R92.8 Other abnormal and inconclusive findings on diagnostic imaging of breast

== ENCOUNTER 2023-03-16 09:10 | Outpatient (CLI) | payer MEDICARE, OTHER ==
--- NOTE | 2023-03-16 14:48 | Mammography Report ---
UNILATERAL RIGHT DIGITAL DIAGNOSTIC MAMMOGRAM 3D/2D WITH LATEROMEDIAL SPOT COMPRESSION: 03/16/2023 CLINICAL: Patient returns today to evaluate a focal asymmetry in the right breast. No prior exams were available for comparison. There are scattered areas of fibroglandular density in the right breast (category b / 25%-50% glandul ar tissue). There is a cluster of oval focal asymmetries in the right breast at 12 o'clock middle depth. This is seen in additional views. This is less prominent. The focal asymmetry appears to only represent on e oval focal asymmetry and not a cluster. No other significant masses or calcifications are seen in the breast. IMPRESSION: INCOMPLETE: NEEDS ADDITIONAL IMAGING EVALUATION The oval focal asymmetry in the right breast resembles a cyst or an intramammary node and is indeterm inate. An ultrasound is recommended for further evaluation and is scheduled to immediately follow this exami nation. Based on the Tyrer Cuzick model (a risk assessment model) the patient's lifetime risk is 5.9% and her 10 year risk is 2.2%. According to the ACR, ACS, and NCCN guidelines, an annual breast MRI exam leif g with mammogram is recommended if the patients lifetime risk is 20% or greater. This exam was interpreted at Station ID: [id number]. NOTE: For mammograms, a report in lay terms will be sent to the patient. Approximately 15% of breast malignancies will not be visualized mammographically. In the management of a palpable breast mass, a negative mammogram must not discourage biopsy of a clinically suspicious lesion. Electronically Signed By: Jude Garcia M.D. aty/:03/16/2023 10:44:32 ACR BI-RADS Category 0: Incomplete 3340F PARENCHYMAL PATTERN: (A) - The breast(s) demonstrate(s) scattered fibroglandular densities. BI-RADS CATEGORY: (0) - 0 Ultrasound [id number] Immediate follow-up LATERALITY: (R)
--- NOTE | 2023-03-17 15:53 | Ultrasound Report ---
LIMITED ULTRASOUND OF RIGHT BREAST: 03/16/2023 CLINICAL: Patient returns today to evaluate a focal asymmetry in the right breast. Comparison is made to exams dated: 03/16/2023 mammogram and 02/15/2023 mammogram - [facility]. Real-time ultrasound of the right breast 12 o'clock region was performed. Sellers scale images of the r eal-time examination were reviewed. No significant abnormalities were seen sonographically in the right breast. IMPRESSION: PROBABLY BENIGN There is no abnormality seen in the right breast to correspond with the mammography finding which is probably benign. A follow-up right mammogram and an ultrasound in 6 months is recommended to demonstrate stability. Findings and recommendations were conveyed to the patient during today's evaluation. This exam was interpreted at Station ID: [id number]. Electronically Signed By: Jude Garcia M.D. aty/:03/16/2023 17:13:02 Ultrasound BI-RADS: 3 Probably benign BI-RADS CATEGORY: (3) - 3 Mammo and [place] [id number] 6 month follow-up LATERALITY: (R)
== END 2023-03-16 09:11 | disposition home or self-care (01) ==
LOC: DI 09:10
PROVIDERS: ATTEND Internal Medicine
DX: R92.8 Other abnormal and inconclusive findings on diagnostic imaging of breast (principal); R92.321 Mammographic fibroglandular density, right breast

== ENCOUNTER 2023-06-02 16:29 | Outpatient (CLI) | payer MEDICARE, OTHER ==
[2023-06-02 16:48] LABS: BILIRUBIN,URINE NEGATIVE (NEGATIVE); CLARITY,URINE HAZY (CLEAR); GLUCOSE, URINE (UA) 250 mg/dL (NEGATIVE); KETONES,URINE (UA) NEGATIVE (NEGATIVE); LEUKOCYTE ESTERASE, URINE NEGATIVE (NEGATIVE); NITRITE,URINE NEGATIVE (NEGATIVE); OCCULT BLOOD,URINE LARGE (NEGATIVE); PROTEIN,URINE 100 mg/dL (NEGATIVE); UROBILINOGEN,URINE 0.2 (NORMAL) E.U./dL (NORMAL)
[2023-06-02 17:04] LABS: AMORPHOUS SEDIMENT,UR Few /LPF; BACTERIA,URINE Rare /HPF (None Seen); SQUAMOUS EPITHELIAL CELL,UR RARE Squamous (<= Few); WBC,URINE 0-3 /HPF (0-5)
== END 2023-06-02 16:30 | disposition home or self-care (01) ==
LOC: LAB 16:29
PROVIDERS: ATTEND Internal Medicine
DX: N12 Tubulo-interstitial nephritis, not specified as acute or chronic (principal)
CPT/HCPCS: 81001; 87086

== ENCOUNTER 2023-06-20 08:00 | Outpatient (CLI) | payer MEDICARE ==
[2023-06-20 15:19] LABS: FECAL OCCULT BLOOD (FIT) POSITIVE (NEGATIVE)
== END 2023-06-20 23:59 | disposition home or self-care (01) ==
LOC: LAB 08:00
PROVIDERS: ATTEND Internal Medicine
DX: N12 Tubulo-interstitial nephritis, not specified as acute or chronic (principal); Z12.11 Encounter for screening for malignant neoplasm of colon
CPT/HCPCS: 82274